=== PATIENT | female | born 1965 | race Caucasian/White ===

== ENCOUNTER 2019-11-10 04:36 | Emergency (ER) | payer OTHER, SELFPAY ==
[2019-11-10 04:45] VITALS: BP 140/76; PULSE 81; RESP 18; TEMP 36.8; O2SAT 97
[2019-11-10 05:13] LABS: Add Urine Microscopic? YES; Appearance Urine Clear (Clear); Bacteria Urine Trace /hpf; Bilirubin Urine Negative (Negative); Blood Urine 1+ (Negative); Color Urine Yellow (Yellow); Glucose Urine UA Negative (Negative); Ketones Urine Negative (Negative); Leukocyte Esterase Ur 3+ LEU/UL (Negative); Mucus Urine Rare /lpf; Nitrate Urine Negative (Negative); Protein Urine Negative (Negative); Specific Grav Ur 1.011 (1.001-1.035); Squamous Epithelial Cell Urine Rare /hpf (Few); Urobilinogen Urine Negative mg/dL (<2.0); WBC Urine 31-50 /hpf
--- NOTE | 2019-11-10 05:42 | ED.FEMALEGU ---
HPI - Female Genitourinary General Chief complaint: Urogenital-Female Stated complaint: WORSENING UTI Time Seen by Provider: 11/10/19 05:42 Source: patient History of Present Illness MD elicited complaint: dysuria and UTI Location of symptoms: suprapubic Severity: mild Female Urogenital Radiation: Non-Radiating Severity scale (1-10): 5 Quality of pain: cramping Consistency: constant Vaginal discharge: none Vaginal bleeding: none Urinary symptoms: Dysuria and Frequency Exacerbating factors: none Relieving factors: none Associated symptoms: denies other symptoms Patient : No Related Data Home Medications Medication Instructions Recorded Confirmed amoxicillin-pot clavulanate 1 tablet PO Q12H 11/10/19 cholecalciferol (vitamin D3) 50,000 unit PO WEEKLY 11/10/19 [Vitamin D3] spironolactone 25 mg PO DAILY 11/10/19 Allergies Allergy/AdvReac Type Severity Reaction Status Date / Time ciprofloxacin AdvReac Unknown Itching Verified 11/10/19 04:38 Review of Systems Review of Systems: All systems reviewed & are unremarkable except as noted in HPI and below Constitutional: Constitutional: Denies body ache(s), Denies chills, Denies excessive sweating, Denies fatigue, Denies fever(s), Denies headache(s), Denies lethargy, Denies malaise, Denies weakness and Denies weight loss Eyes: Eyes: Denies blurry vision, Denies change in vision and Denies loss of vision ENT: Denies dizziness, Denies ear discharge, Denies headache(s), Denies lip swelling, Denies epistaxis, Denies nasal congestion, Denies neck pain, Denies throat swelling and Denies tongue swelling Cardiovascular: Cardiovascular: Denies chest pain, Denies chest pain at rest, Denies chest pain with activity, Denies diaphoresis, Denies rapid heart rate, Denies edema, Denies irregular heart rhythm, Denies lightheadedness, Denies palpitations, Denies dyspnea and Denies dyspnea on exertion Respiratory: Respiratory: Denies chest congestion, Denies cough, Denies hemoptysis, Denies dyspnea and Denies dyspnea on exertion Gastrointestinal: Gastrointestinal: Denies abdominal pain, Denies melena, Denies hematochezia, Denies diarrhea, Denies nausea, Denies vomiting and Denies hematemesis Musculoskeletal: Musculoskeletal: Denies abnormal gait, Denies deformity, Denies joint swelling, Denies limited range of motion, Denies neck pain and Denies numbness Neurologic: Denies Abnormal speech present, Denies abnormal gait, Denies confusion, Denies dizziness, Denies headache(s), Denies focal weakness, Denies loss of vision, Denies numbness, Denies Other visual disturbances, Denies Sensory deficit (Neuro) and Denies weakness Psychiatric: Psychiatric: Denies confusion, Denies depression, Denies auditory hallucinations, Denies homicidal ideation and Denies suicidal ideation Endocrine: Endocrine: Denies cold intolerance, Denies excessive sweating, Denies fatigue, Denies heat intolerance and Denies palpitations Hematologic/Lymphatic: Hematologic/Lymphatic: Denies easy bleeding and Denies easy bruising Allergic/Immunologic: Allergic/Immunologic: Denies lip swelling, Denies throat swelling and Denies tongue swelling [facility] Family History Family History (Updated 08/09/10 @ 02:06 by DOCTOR UNKNOWN) Father Acute myocardial infarction Other Family history of cardiovascular disease Hypertension Social History Social History Smoking status: Never smoker Alcohol intake: never Gender identity (if verbalized by the patient): Female Exam Const: General: cooperative, healthy appearing, comfortable, no acute distress, well developed, alert and awake; No confusion Orientation/consciousness: oriented to person, oriented to place, oriented to time, patient oriented x3 and No confusion Limitations: no limitations HENMT: Head: normal to inspection, normocephalic and atraumatic Ears: hearing grossly normal bilaterally, TM normal on the right and TM normal on the left General nose
[2019-11-10 05:56] VITALS: BP 136/84; PULSE 84; RESP 18; O2SAT 99
== END 2019-11-10 05:58 | disposition home or self-care (01) ==
PROVIDERS: Emergency Provider Emergency Medicine; PCP Family Medicine
DX: N39.0 Urinary tract infection, site not specified (principal)
CPT/HCPCS: 81001; 81025; 87086; 87088; 99283

== ENCOUNTER 2019-11-16 17:04 | Outpatient (CLI) | payer OTHER, SELFPAY ==
--- NOTE | ~2019-11-16 | XR_ITS ---
EXAMINATION: XR abdomen/kub 1V DATE: 11/16/2019 17:22 INDICATION: Nephrocalcinosis TECHNIQUE: A supine view of the abdomen on 2 radiographs was obtained. COMPARISON: 11/30/2018 FINDINGS: No significant interval change in number or distribution of numerous stones throughout both kidneys, the largest measuring 1.8 cm at the lower pole of the left kidney, 1.4 cm at the lower pole of the ri ght kidney and 1.7 cm at the mid right kidney. No stones seen along the course of the ureters. Unchan ged 3 mm phlebolith in the left hemipelvis. Normal bowel gas pattern. Mild lumbar levocurvature. IMPRESSION: 1. Stable appearance of numerous bilateral renal stones. Reviewed, dictated and finalized at location A. LATORY SUBMISSIONS SPECIALIST
== END 2019-11-16 17:05 | disposition home or self-care (01) ==
LOC: ANHIMG 17:07
PROVIDERS: PCP Family Medicine; Visit Provider Urology
DX: E83.59 Other disorders of calcium metabolism (principal); N20.0 Calculus of kidney
CPT/HCPCS: 74018

== ENCOUNTER 2020-07-23 18:00 | Outpatient (CLI) | payer OTHER, SELFPAY ==
--- NOTE | ~2020-07-23 | XR_ITS ---
EXAMINATION: XR abdomen/kub 1V DATE: 07/23/2020 18:26 INDICATION: Calculus of kidney. TECHNIQUE: A supine view of the abdomen on 2 radiographs was obtained. COMPARISON: Abdomen radiographs 11/16/2019 FINDINGS: There are greater than 20 stones in right kidney measuring up to 12 mm. There are greater t montemayor 10 stones in left kidney measuring up to 18 mm. There is a phlebolith in left pelvis. There are n o dilated loops of bowel. IMPRESSION: 1. Bilateral kidney stones. Reviewed, dictated and finalized at location A. MACHINE CARVER IMPRESSION: 1. Bilateral kidney stones.
== END 2020-07-23 18:01 | disposition home or self-care (01) ==
PROVIDERS: PCP Family Medicine; Visit Provider Internal Medicine Nephrology
DX: N20.0 Calculus of kidney (principal)
CPT/HCPCS: 74018

== ENCOUNTER 2020-11-12 22:59 | Emergency (ER) | payer OTHER, SELFPAY ==
--- NOTE | ~2020-11-12 | XR_ITS ---
EXAMINATION: XR abdomen/kub 1V DATE: 11/12/2020 23:55 INDICATION: Left flank pain. TECHNIQUE: A supine view of the abdomen on 2 radiographs was obtained. COMPARISON: CT abdomen and pelvis 11/12/2020 FINDINGS: There are no dilated loops of bowel. There are greater than 10 stones in each kidney. There is bilateral medullary nephrocalcinosis. There is a 4 mm stone in distal left ureter. There is a phl ebolith in left pelvis. IMPRESSION: 1. 4 mm stone in distal left ureter. 2. Bilateral kidney stones. Bilateral medullary nephrocalcinosis. Reviewed, dictated and finalized at location A. IMEN PROCESSOR
--- NOTE | ~2020-11-12 | CT_ITS ---
EXAMINATION: CT abdomen pelvis wo con DATE: 11/12/2020 23:50 INDICATION: Left flank pain. TECHNIQUE: Computed tomography (CT) of the abdomen and pelvis was performed without intravenous contr ast. Automated exposure control and iterative reconstruction technique were employed. The dose-length product was 933.13 mGy-cm. COMPARISON: CT abdomen and pelvis 03/16/2018 FINDINGS: The visualized portions of the lung bases demonstrate minimal atelectasis in right lower lo be. No pleural effusion. The heart size is normal. No pericardial effusion. There are bilateral breas t implants. The liver, gallbladder, spleen, pancreas, and adrenal glands are normal. There is bilater al medullary nephrocalcinosis. There are greater than 10 stones in each kidney measuring up to 10 mm on the right and 14 mm on the left. There is moderate left hydronephrosis and hydroureter. There is a 4 mm stone in distal left ureter. There are no dilated loops of bowel. There is an umbilical hernia containing fat. There are no pathologically enlarged lymph nodes. There is no free intraperitoneal fl uid. There is mild thoracolumbar spondylosis. IMPRESSION: 1. 4 mm stone in distal left ureter with moderate left hydronephrosis and hydroureter. 2. Bilateral nonobstructing kidney stones. Bilateral medullary nephrocalcinosis. Reviewed, dictated and finalized at location A. ER OPERATOR IMPRESSION: 1. 4 mm stone in distal left ureter with moderate left hydronephrosis and hydro ureter. 2. Bilateral nonobstructing kidney stones. Bilateral medullary nephrocalcinosis .
[2020-11-12 23:06] VITALS: BP 163/79; PULSE 88; RESP 16; TEMP 36.6; O2SAT 97
--- NOTE | 2020-11-12 23:40 | ED.ABDPAIN ---
HPI - Abdominal Pain General Chief Complaint: Abdominal Pain Stated Complaint: kidney stone/ chills Time Seen by Provider: 11/12/20 23:33 Source: patient Mode of arrival: ambulatory Limitations: no limitations and language barrier History of Present Illness HPI narrative: This is a 55 year old female with history of chronic kidney disease and kidney stones who presents for evaluation of left flank pain. She developed left flank pain at 3 am this morning. She states she just doesn't feel right and she has had a history of sepsis. She started taking left over antibiotics today. She denies nausea, vomiting, fever, chills, abdominal pain, dysuria or hematuria. This pain has been constant but it has decreased currently. She states it seems to have migrated more to her left side. She has an appointment with Dr. Ross on Thursday but she wanted to get checked tonight. Related Data Home Medications Medication Instructions Recorded Confirmed amoxicillin-pot clavulanate 1 tablet PO Q12H 11/10/19 cholecalciferol (vitamin D3) 50,000 unit PO WEEKLY 11/10/19 [Vitamin D3] spironolactone 25 mg PO DAILY 11/10/19 Allergies Allergy/AdvReac Type Severity Reaction Status Date / Time ciprofloxacin AdvReac Unknown Itching Verified 11/10/19 04:38 Review of Systems Review of Systems: All systems reviewed & are unremarkable except as noted in HPI and below PMFSH Past Medical History Medical History (Updated 11/13/20 @ 01:57 by Jennie Gillespie MD) Chronic kidney disease Kidney stones Renal tubular acidosis Surgical History Surgical History (Updated 11/12/20 @ 23:44 by Jennie Gillespie MD) S/P ureteral stent placement Family History Family History (Updated 08/09/10 @ 02:06 by DOCTOR UNKNOWN) Father Acute myocardial infarction Other Family history of cardiovascular disease Hypertension Social History Social History Smoking status: Never smoker Alcohol intake: never Gender identity (if verbalized by the patient): Female Exam Const: General: no acute distress and alert Orientation/consciousness: patient oriented x3 Eyes: EOM: EOMs intact bilaterally Resp: Effort & Inspection: normal respiratory effort and no retractions Auscultation: clear to auscultation bilaterally Cardio: Rate: regular rate Rhythm: regular rhythm Heart sounds: no murmurs GI: GI Palp: Yes Soft to palpation, No Tenderness to palpation present (GI) and No Guarding due to palpation present (GI) Auscultation: normal bowel sounds Back/Spine/Pelvis: Back: no CVA tenderness Skin: General skin exam: normal color Rashes: no rashes Neuro: General: patient oriented x3, moves all extremities and CN's II-XI intact bilaterally Psych: Mental Status: mental status grossly normal Affect: normal affect Course Consultations Consultation #1: I Discussed with Dr. Bose patient has wbc 13 with UTI but no fever. PAin is controlled. Patient is comfortable with discharge home. HE agrees with antibiotics and outpatient management. Date: 11/13/20 Time: 00:32 Vital Signs Vital signs: Vital Signs Temperature 97.9 F 11/12/20 23:06 Pulse Rate 88 11/12/20 23:06 Respiratory Rate 16 11/12/20 23:06 Blood Pressure 163/79 H 11/12/20 23:06 Pulse Oximetry 97 11/12/20 23:06 Temperature 97.9 F 11/12/20 23:06 Pulse Rate 88 11/12/20 23:06 Respiratory Rate 16 11/12/20 23:06 Blood Pressure 163/79 H 11/12/20 23:06 Pulse Oximetry 97 11/12/20 23:06 MDM - Abdominal Pain Lab Data Attestation: I reviewed the patient's lab results. Result diagrams: 11/12/20 23:46 11/12/20 23:46 Labs: Lab Results 11/12/20 11/12/20 11/12/20 Range/Units 23:46 23:46 23:46 WBC 13.7 H (4.5-10.0) K/mm3 RBC 5.43 H (4.2-5.4) M/mm3 Hgb 15.2 H (12.0-15.0) g/dL Hct 46.9 (37.0-47.0) % MCV 86.4 (80-100) fl MCH 28.0 (26-34) pg MCHC 32.4 (32-36) g/dl
[2020-11-12 23:58] LABS: Basophils Absolute Auto 0.1 K/mm3 (0.0-0.1); Basophils Percent Auto 0.4 % (0.2-1.2); Eosinophils Absolute Auto 0.2 K/mm3 (0-0.3); Eosinophils Percent Auto 1.5 % (0-4.4); Hematocrit 46.9 % (37.0-47.0); Hemoglobin 15.2 g/dL (12.0-15.0); Immature Granulocyte Absolute 0.06 K/mm3 (0.00-0.031); Immature Granulocyte Percent A 0.4 % (0-0.5); Lymphocytes Absolute Auto 2.89 K/mm3 (0.9-3.2); Lymphocytes Percent Auto 21.1 % (18.3-44.2); Mean Corpuscular HGB Conc 32.4 g/dl (32-36); Mean Corpuscular Volume 86.4 fl (80-100); Mean Platelet Volume 9.8 fl (7.4-10.4); Monocytes Absolute Auto 1.3 K/mm3 (0.1-0.6); Monocytes Percent Auto 9.3 % (2.6-8.5); Neutrophils Absolute Auto 9.2 K/mm3 (1.3-6.7); Neutrophils Percent Auto 67.3 % (45.5-73.1); Platelet Count Result 348 k/mm3 (150-375); Red Blood Count 5.43 M/mm3 (4.2-5.4); Red Cell Distribution Width 13.4 % (11.5-14.5); White Blood Count 13.7 K/mm3 (4.5-10.0)
[2020-11-13 00:03] LABS: Add Urine Microscopic? YES; Appearance Urine Clear (Clear); Bilirubin Urine Negative (Negative); Blood Urine 1+ (Negative); Color Urine Colorless (Yellow); Glucose Urine UA Negative (Negative); Ketones Urine Negative (Negative); Leukocyte Esterase Ur 3+ LEU/UL (Negative); Nitrate Urine Negative (Negative); Protein Urine Negative (Negative); RBC Urine 0-2 /hpf (0-2); Squamous Epithelial Cell Urine Rare /hpf (Few); Urobilinogen Urine Negative mg/dL (<2.0); WBC Urine 21-30 /hpf
[2020-11-13 00:04] LABS: Specific Grav Ur 1.004 (1.001-1.035)
[2020-11-13 00:09] LABS: Alanine Aminotransferase 20 U/L (4-35); Albumin Level 4.7 g/dL (3.5-5.1); Alkaline Phosphatase 80 U/L (38-126); Anion Gap 11 mmol/L (8-16); Aspartate Amino Transferase 25 U/L (14-36); Bilirubin,Total 0.6 mg/dL (0.2-1.3); Blood Urea Nitrogen 16 mg/dL (7-17); Calcium 9.9 mg/dL (8.4-10.2); Carbon Dioxide 19 mmol/L (22-30); Chloride 110 mmol/L (98-107); Estimated CRCL calculation 46 ml/min; Estimated Glomerular Filt Rate 39; Glucose 110 mg/dL (65-105); Potassium 3.6 mmol/L (3.4-5.0); Sodium 140 mmol/L (137-145)
[2020-11-13] MEDS: SODIUM CHLORIDE 0.9% IV 1,000 ML 999 ML IV CONT (01:17)
[2020-11-13] MEDS: TAMSULOSIN HCL 0.4 MG CAPSULE PO (01:17)
[2020-11-13 02:30] VITALS: BP 135/78; PULSE 64; RESP 18; O2SAT 97
== END 2020-11-13 02:52 | disposition home or self-care (01) ==
PROVIDERS: Emergency Provider General Practice; PCP Family Medicine
DX: N13.2 Hydronephrosis with renal and ureteral calculous obstruction (principal); N18.9 Chronic kidney disease, unspecified; Z87.442 Personal history of urinary calculi; E83.59 Other disorders of calcium metabolism; N29 Other disorders of kidney and ureter in diseases classified elsewhere
CPT/HCPCS: 36415; 74018; 74176; 80053; 81001; 81025; 85025; 87086; 87088; 96365; 99284; A9270; J0696; J7030

== ENCOUNTER 2020-11-13 15:49 | Outpatient (CLI) | payer OTHER, SELFPAY ==
--- NOTE | ~2020-11-13 | XR_ITS ---
XR abdomen/kub 1V DATE: 11/13/2020 16:14 INDICATION: Nephrocalcinosis. Left-sided flank pain. TECHNIQUE: AP projection, 2 views COMPARISON: 11/12/2020 KUB 11/12/[address] abdomen pelvis FINDINGS: Extensive bilateral nephrolithiasis and medullary nephrocalcinosis, right greater than left . No significant change in position of calcified calculus overlying the left ureter is slightly below t he level of the left sacroiliac joint, corresponding to a calculus at this level documented on the CT abdomen pelvis examination. The psoas shadows are intact. The bowel gas pattern is unremarkable, without evidence of obstruction. IMPRESSION: Persistent distal left ureteral calcified calculus Extensive bilateral nephrolithiasis and medullary nephrocalcinosis Reviewed, dictated and finalized at Location A. Reviewed, dictated and finalized at location A. P SHED SUPERVISOR
== END 2020-11-13 15:50 | disposition home or self-care (01) ==
LOC: ANHIMG 15:51
PROVIDERS: PCP Family Medicine; Visit Provider Urology
DX: E83.59 Other disorders of calcium metabolism (principal)
CPT/HCPCS: 74018

== ENCOUNTER 2020-11-22 18:25 | Outpatient (CLI) | payer OTHER, SELFPAY ==
--- NOTE | ~2020-11-22 | XR_ITS ---
EXAMINATION: XR abdomen/kub 1V INDICATION: Nephrocalcinosis TECHNIQUE: Supine views of the abdomen were obtained on 2 radiographs. COMPARISON: 11/13/2020 FINDINGS: There is bilateral medullary nephrocalcinosis. The previously described 4 mm stone in the l eft distal ureter is unchanged. There is a new 4 mm adjacent stone projecting immediately adjacent to the prior stone in the distal left ureter. Again noted are greater than 10 stones in each kidney. Th e bowel gas pattern is normal. IMPRESSION: 1. Two adjacent 4 mm stones in the left distal ureter. 2. Bilateral nephrolithiasis and medullary nephrocalcinosis. Reviewed, dictated and finalized at location A. PLES MACHINE OPERATOR
== END 2020-11-22 18:26 | disposition home or self-care (01) ==
PROVIDERS: PCP Family Medicine; Visit Provider Urology
DX: N20.2 Calculus of kidney with calculus of ureter (principal)
CPT/HCPCS: 74018

== ENCOUNTER 2020-11-29 18:18 | Outpatient (CLI) | payer OTHER, SELFPAY ==
--- NOTE | ~2020-11-29 | XR_ITS ---
XR abdomen/kub 1V 11/29/2020 18:38 Indication: Left ureteral stone. Renal stones. Procedure: KUB Comparison: Comparison to multiple prior studies sequentially, with oldest reviewed study dated 11/13. Findings: There is a distal left ureteral stone inferior to the sacroiliac joint, measuring 6 mm maxi mum dimension. There are multiple small and large bilateral renal stones. Bowel gas pattern is nonobs tructive. No acute osseous abnormality. Impression: 1: Distal left ureteral stone measuring 6 mm. 2: Bilateral nephrolithiasis. Reviewed, dictated and finalized at location A. ER SERVICEMAN Impression: 1: Distal left ureteral stone measuring 6 mm. 2: Bilateral nephrolithiasis.
== END 2020-11-29 18:19 | disposition home or self-care (01) ==
PROVIDERS: PCP Family Medicine; Visit Provider Urology
DX: N20.2 Calculus of kidney with calculus of ureter (principal)
CPT/HCPCS: 74018

== ENCOUNTER 2022-02-24 07:34 | Emergency (ER) | payer OTHER, SELFPAY ==
[2022-02-24 07:44] VITALS: BP 174/88; PULSE 91; RESP 17; TEMP 36.9; O2SAT 98
--- NOTE | 2022-02-24 07:52 | ED.GENADULT ---
HPI - General Adult General Chief complaint: Unspecified Stated complaint: thyroid problems Time Seen by Provider: 02/24/22 07:36 History of Present Illness HPI narrative: 56-year-old female history of hypothyroidism presented to the emergency department for evaluation of worsening intermittent fatigue with associated headache. Patient states she has been on levothyroxine for approximately 30 years. Patient states that she associates the weakness and fatigue with taking her levothyroxine. She states after she takes the levothyroxine she has a worsening of her symptoms. Patient has had her dose decreased and is scheduled to follow-up with endocrinology but the appointment is not for another 3 months. Patient states that she did have follow-up with her primary care physician on 01/30. Patient states she did abstain from taking her medication Thursday and did feel improved after 24 hours. Patient took her medication again on Thursday and did feel worsened after taking the med Patient denies any fevers. Patient denies any associated nausea vomiting diarrhea or abdominal pain. Related Data Home Medications Medication Instructions Recorded Confirmed cholecalciferol (vitamin D3) 100 50,000 unit PO WEEKLY 11/10/19 01/30/22 mcg (4,000 unit) capsule (Vitamin D3) spironolactone 25 mg tablet 25 mg PO DAILY 11/10/19 01/30/22 allopurinol 100 mg tablet 100 mg PO DAILY 01/30/22 01/30/22 levothyroxine 125 mcg tablet tablet 02/24/22 Allergies Allergy/AdvReac Type Severity Reaction Status Date / Time ciprofloxacin AdvReac Unknown Itching Verified 02/24/22 07:51 Review of Systems Review of Systems: CONSTITUTIONAL: Generalized fatigue EYES: Denies visual changes, redness, or discharge. ENT: Denies rhinorrhea, congestion, sore throat, or otalgia. CARDIOVASCULAR: Denies chest pain, palpitations, or edema. RESPIRATORY: Denies cough or dyspnea. GASTROINTESTINAL: Denies abdominal pain, nausea, vomiting, or diarrhea. GENITOURINARY: Denies dysuria or hematuria. SKIN: Denies rash or itching. MUSCULOSKELETAL: Denies back pain, joint pain, or myalgia. NEUROLOGIC: Denies headache, numbness, or weakness. [facility] Past Medical History Medical History BMI 37.0-37.9, adult BMI greater than 40 Chronic kidney disease Kidney stones Renal tubular acidosis Surgical History Surgical History S/P ureteral stent placement Family History Family History Father Acute myocardial infarction Mother Cerebrovascular accident Sibling Thyroid activity decreased Other Family history of cardiovascular disease Hypertension Social History Social History Smoking status: Never smoker Second hand tobacco smoke exposure: Yes Alcohol intake: never Substance use: never Substance use type: does not use Additional occupation/education comments: [employer] Gender identity (if verbalized by the patient): Female Exam Narrative: APPEARANCE: Well appearing, no pain, no distress, well-nourished. HEAD: normocephalic, atraumatic. EYES: PERRLA/EOMI, conjunctivae clear. THROAT: Pharynx clear, no exudate. NECK: Supple. No adenopathy, no masses. RESPIRATORY: Airway patent, respirations nonlabored. Clear to auscultation bilaterally, no rales, rhonchi, wheezing. CARDIOVASCULAR: Regular rate and rhythm without murmurs rubs or gallops. ABDOMINAL: Soft, nontender, nondistended, normal bowel sounds MUSCULOSKELETAL: Moves all extremities. Strength/ROM intact, No edema, No calf tenderness. NEURO: Alert. Cranial nerves II through XII intact. Grossly intact SKIN: Warm, dry. Normal Color Course Course Emergency Course: Patient was updated the results of her labs. No significant electrolyte abnormalities.
[2022-02-24 08:05] LABS: Basophils Absolute Auto 0.1 K/mm3 (0.0-0.1); Basophils Percent Auto 0.5 % (0.2-1.2); Eosinophils Absolute Auto 0.3 K/mm3 (0-0.3); Eosinophils Percent Auto 2.2 % (0-4.4); Hematocrit 49.1 % (37.0-47.0); Hemoglobin 15.5 g/dL (12.0-15.0); Immature Granulocyte Absolute 0.05 K/mm3 (0.00-0.031); Immature Granulocyte Percent A 0.4 % (0-0.5); Lymphocytes Absolute Auto 2.49 K/mm3 (0.9-3.2); Lymphocytes Percent Auto 21.5 % (18.3-44.2); Mean Corpuscular HGB Conc 31.6 g/dl (32-36); Mean Corpuscular Hemoglobin 27.9 pg (26-34); Mean Corpuscular Volume 88.5 fl (80-100); Mean Platelet Volume 9.6 fl (7.4-10.4); Monocytes Absolute Auto 0.9 K/mm3 (0.1-0.6); Monocytes Percent Auto 8.1 % (2.6-8.5); Neutrophils Absolute Auto 7.8 K/mm3 (1.3-6.7); Neutrophils Percent Auto 67.3 % (45.5-73.1); Platelet Count Result 348 k/mm3 (150-375); Red Blood Count 5.55 M/mm3 (4.2-5.4); Red Cell Distribution Width 13.5 % (11.5-14.5); White Blood Count 11.6 K/mm3 (4.5-10.0)
[2022-02-24 08:16] LABS: Alanine Aminotransferase 30 U/L (6-35); Alkaline Phosphatase 72 U/L (38-126); Anion Gap 14 mmol/L (8-16); Aspartate Amino Transferase 30 U/L (14-36); Bilirubin,Total 0.7 mg/dL (0.2-1.3); Blood Urea Nitrogen 19 mg/dL (7-17); Calcium 9.8 mg/dL (8.4-10.2); Carbon Dioxide 20 mmol/L (22-30); Chloride 106 mmol/L (98-107); Estimated CRCL calculation 50 ml/min; Estimated Glomerular Filt Rate 39; Glucose 124 mg/dL (65-110); Sodium 140 mmol/L (137-145)
[2022-02-24] MEDS: SODIUM CHLORIDE 0.9% IV 1,000 ML 999 ML IV CONT (08:21)
[2022-02-24 08:23] VITALS: PULSE 65
[2022-02-24 09:02] LABS: Thyroid Stimulating Hormone Reflex 0.259 uIU/mL (0.465-4.68)
[2022-02-24 09:49] VITALS: BP 149/73; PULSE 58; RESP 16
[2022-02-24 09:50] LABS: Free T4 Free Thyroxine Reflex 1.22 ng/dL (0.78-2.19)
[2022-02-24 10:34] LABS: Total Triiodothyronine (T3) 1.89 NG/ML (0.97-1.69)
--- NOTE | 2022-03-20 11:22 | PC.NURSE ---
LATE ENTRY This note is being entered to document information to the patient's record. The following information was omitted on [02/24/2022], by [Flora Wong RN]. NS stop time is 914.
== END 2022-02-24 09:49 | disposition home or self-care (01) ==
PROVIDERS: Emergency Provider Emergency Medicine; PCP Family Medicine
DX: R53.83 Other fatigue (principal); T38.1X5A Adverse effect of thyroid hormones and substitutes, initial encounter; E03.9 Hypothyroidism, unspecified; N18.9 Chronic kidney disease, unspecified; Z87.442 Personal history of urinary calculi
CPT/HCPCS: 36415; 80053; 83735; 84439; 84443; 84480; 85025; 96360; 99283; J7030

== ENCOUNTER 2022-04-25 17:27 | Observation (INO) | payer OTHER, SELFPAY ==
[2022-04-25 17:51] VITALS: BP 144/77; PULSE 70; RESP 16; TEMP 36.5; O2SAT 97
--- NOTE | 2022-04-25 18:48 | ED.GENADULT ---
HPI - General Adult General Chief complaint: Unspecified Stated complaint: thyroid issues Time Seen by Provider: 04/25/22 18:48 History of Present Illness HPI narrative: 56-year-old female presents the emergency room complaining of thyroid issues . Patient states that she has been on Synthroid for approximately 30 years, when back in February she was seen in the emergency room for not feeling well, general malaise and fatigue. Patient was found to have a TSH level of 50 at that time. She went back to her primary care physician and they took her off of Synthroid and placed her on [place] [facility]. Patient presents today complaining of increased fatigue and generalized malaise. Patient denies chest pain shortness of breath or breathing. Related Data Home Medications Medication Instructions Recorded Confirmed spironolactone 25 mg tablet 25 mg PO DAILY 11/10/19 04/11/22 allopurinol 100 mg tablet 100 mg PO DAILY 01/30/22 04/11/22 Allergies Allergy/AdvReac Type Severity Reaction Status Date / Time No Known Allergies Allergy Verified 04/25/22 17:55 Review of Systems Review of Systems: CONSTITUTIONAL: Denies fever, chills, or sweats. EYES: Denies visual changes, redness, or discharge. ENT: Denies rhinorrhea, congestion, sore throat, or otalgia. CARDIOVASCULAR: Denies chest pain, palpitations, or edema. RESPIRATORY: Denies cough or dyspnea. GASTROINTESTINAL: Denies abdominal pain, nausea, vomiting, or diarrhea. GENITOURINARY: Denies dysuria or hematuria. SKIN: Denies rash or itching. MUSCULOSKELETAL: Denies back pain, joint pain, or myalgia. NEUROLOGIC: Reports generalized weakness PSYCHIATRIC: Denies anxiety or depression. [facility] Past Medical History Medical History BMI 37.0-37.9, adult BMI greater than 40 Chronic kidney disease Edema Kidney stones Renal tubular acidosis Surgical History Surgical History S/P ureteral stent placement Family History Family History Father Acute myocardial infarction Tobacco abuse Mother Cerebrovascular accident Sibling Thyroid activity decreased Other Family history of cardiovascular disease Hypertension Social History Social History 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 HEAD: Normocephalic, atraumatic. EYES: Conjunctivae normal, PERRLA and EOMI. NECK: Supple. No meningeal signs. No adenopathy or masses. No carotid bruits or JVD CHEST: Clear to auscultation. No respiratory distress. No wheezes rales or rhonchi. No tenderness. HEART: Regular rate and rhythm. No murmur heard. Normal peripheral pulses. ABDOMEN: Soft, nontender, nondistended, normal active bowel sounds. BACK: No CVA tenderness; No cervical/thoracic/lumbar tenderness, step-offs, bony abnormality; FROM EXTREMITIES: Normal range of motion. No edema. No clubbing or cyanosis SKIN: Warm, dry, no rash. No noted wounds NEURO: No focal deficits. Alert and oriented x3. MAEW. CN's II-XI intact bilaterally, normal gait PSYCH: Cooperative. Normal mood and affect. Course Vital Signs Vital signs: Vital Signs Temperature 36.5 C 04/25/22 17:51 Pulse Rate 70 04/25/22 17:51 Respiratory Rate 16 04/25/22 17:51 Blood Pressure 144/77 H 04/25/22 17:51 Pulse Oximetry 97 04/25/22 17:51 Temperature 36.5 C 04/25/22 17:51 Pulse Rate 78 04/25/22 21:10 Respiratory Rate 20 04/25/22 21:10 Blood Pressure 176/9
[2022-04-25] MEDS: SODIUM CHLORIDE 0.9% IV 1,000 ML 999 ML (19:21)
[2022-04-25 19:25] VITALS: BP 138/71; PULSE 64; RESP 18; O2SAT 99
[2022-04-25 19:31] LABS: Basophils Absolute Auto 0.1 K/mm3 (0.0-0.1); Basophils Percent Auto 0.6 % (0.2-1.2); Eosinophils Absolute Auto 0.3 K/mm3 (0-0.3); Eosinophils Percent Auto 2.1 % (0-4.4); Hematocrit 47.1 % (37.0-47.0); Immature Granulocyte Absolute 0.07 K/mm3 (0.00-0.031); Immature Granulocyte Percent A 0.5 % (0-0.5); Lymphocytes Absolute Auto 2.36 K/mm3 (0.9-3.2); Lymphocytes Percent Auto 17.7 % (18.3-44.2); Mean Corpuscular HGB Conc 31.8 g/dl (32-36); Mean Corpuscular Hemoglobin 28.5 pg (26-34); Mean Corpuscular Volume 89.4 fl (80-100); Mean Platelet Volume 9.8 fl (7.4-10.4); Monocytes Absolute Auto 1.1 K/mm3 (0.1-0.6); Monocytes Percent Auto 8.1 % (2.6-8.5); Neutrophils Absolute Auto 9.5 K/mm3 (1.3-6.7); Platelet Count Result 339 k/mm3 (150-375); Red Blood Count 5.27 M/mm3 (4.2-5.4); Red Cell Distribution Width 15.3 % (11.5-14.5); White Blood Count 13.4 K/mm3 (4.5-10.0)
[2022-04-25 19:41] LABS: Alanine Aminotransferase 33 U/L (6-35); Alkaline Phosphatase 70 U/L (38-126); Anion Gap 12 mmol/L (8-16); Aspartate Amino Transferase 57 U/L (14-36); Bilirubin,Total 0.7 mg/dL (0.2-1.3); Blood Urea Nitrogen 16 mg/dL (7-17); Calcium 9.4 mg/dL (8.4-10.2); Carbon Dioxide 22 mmol/L (22-30); Chloride 103 mmol/L (98-107); Estimated CRCL calculation 43 ml/min; Estimated Glomerular Filt Rate 33; Glucose 112 mg/dL (65-110); Potassium 3.7 mmol/L (3.4-5.0); Sodium 137 mmol/L (137-145)
[2022-04-25 20:49] LABS: Thyroid Stimulating Hormone > 100.000 uIU/mL (0.465-4.680)
--- NOTE | 2022-04-25 21:05 | ECG_ITS ---
Measurements Intervals [place] Rate: 75 P: 59 ME: 196 QRS: 106 QRSD: 64 T: 112 QT: 343 QTc: 384 Interpretive Statements SINUS RHYTHM MARKED RIGHT AXIS DEVIATION [QRS AXIS > 100] LOW QRS VOLTAGE IN PRECORDIAL LEADS [QRS DEFLECTION < 1.0 mV IN CHEST LEADS] NONSPECIFIC ST SEGMENT ABNORMALITY NO PREVIOUS ECG AVAILABLE FOR COMPARISON Electronically Signed On 04-26-2022 7:19:42 CDT by Onel Cee M.D.
[2022-04-25 21:10] VITALS: BP 176/95; PULSE 78; RESP 20; O2SAT 99
[2022-04-25 21:25] LABS: Appearance Urine Clear (Clear); Bilirubin Urine Negative (Negative); Blood Urine 1+ (Negative); Glucose Urine UA Negative (Negative); Ketones Urine Negative (Negative); Leukocyte Esterase Ur 3+ LEU/UL (Negative); Nitrate Urine Negative (Negative); Protein Urine Negative (Negative); Urobilinogen Urine 0.2 mg/dL (<2.0)
[2022-04-25 21:31] LABS: Bacteria Urine Trace /hpf; RBC Urine 0-2 /hpf (0-2); Squamous Epithelial Cell Urine Rare /hpf (Few); WBC Urine 21-30 /hpf
[2022-04-25 21:35] LABS: Add Urine Microscopic? YES; Color Urine Light Yellow (Yellow)
[2022-04-25 21:43] LABS: SARS-CoV-2 RNA PCR Negative
[2022-04-25 22:07] VITALS: BP 134/70; PULSE 70; RESP 18; O2SAT 99
[2022-04-25 22:35] VITALS: BP 143/78; PULSE 71; RESP 14; TEMP 36.1; O2SAT 96
[2022-04-25 22:36] VITALS: BMI 38.5
[2022-04-25 22:43] LABS: Free T4 Free Thyroxine 0.17 ng/mL (0.78-2.19)
[2022-04-25 22:45] VITALS: BMI 41.4
[2022-04-25] MEDS: SODIUM CHLORIDE 0.9% IV 1,000 ML 125 ML IV CONT (23:21)
--- NOTE | 2022-04-25 23:30 | PC.NURSE ---
This patient, Danyell Wong, was admitted to [facility] Surg Room 317-02. Patient/family oriented to hospital policies and general routines including ID bracelet, bed and alarms, visiting hours, pain management, procedures, bathroom and other care routines, personal items, smoking policy, room service/diet, and visiting hours. Information on how to activate the Rapid Response Team has been discussed. Patient/Family are encouraged to report perceived risks to care and to ask questions if they do not understand what they are told or what they should do.
[2022-04-26] VITALS (9 sets, daily range): BP systolic 129–146; BP diastolic 54–79; PULSE 51–77; RESP 14–18; TEMP 36–36.6; O2SAT 96–99
--- NOTE | 2022-04-26 06:25 | PM.IMHP ---
H&P: HPI History of Present Illness Date/Time: 04/26/22 06:25 Chief Complaint: Malaise Narrative: Greater than 30 minute spent reviewing chart, evaluating, treating, counseling patient. Anticipate less than 48 hour admission, will admit under observation. 56-year-old female past medical history of obesity, hypothyroidism, anxiety, CKD (appears patient's baseline creatinine around 1.4), RTA. The patient has had issues with her thyroid medication for almost a year now. She has been on levothyroxine 175 mcg for the last 30 years, however late last fall patient had her medication filled at the pharmacy and was given brand name Synthroid instead. Patient had a reaction after taking the brand name, stating ?it did not sit well. She was switched back to a generic levothyroxine, however was noted to be hyperthyroid and dose was decreased to 137 mcg and September of 2021. Patient's dosage was subsequently decreased again to 125 mcg due to follow-up labs showing hyperthyroid. From May 2021 up until January 2022 patient was switched multiple times from generic to brand name back and forth. Patient's TSH was 0.03 in January 2022. Patient was evaluated here in the ED February 2022 due to persistent symptoms of fatigue and weakness. TSH was found to be low, and free T4 Was normal with slightly elevated T3. At that time, patient was taken off levothyroxine completely by her family doctor. Between February and now, patient apparently found to be hypothyroid and was started on [place] Thyroid 15 mg. In ED here today, patient's TSH found to be above 100 with a low T4. Patient reporting significant fatigue, however denies swelling of her face (which she has had before with hypothyroid), swelling of the tongue, swelling of her hands and legs, constipation. She does report weight gain. Patient is anxious and weary of restarting levothyroxine. States she has an appointment with endocrinology in May. Review of Systems Review of Systems: Ten point ROS reviewed negative unless otherwise specified per HPI. [facility] Past Medical History Medical History BMI 37.0-37.9, adult BMI greater than 40 Chronic kidney disease Edema Kidney stones Renal tubular acidosis Surgical History Surgical History S/P ureteral stent placement Family History Family History Father Acute myocardial infarction Tobacco abuse Mother Cerebrovascular accident Sibling Thyroid activity decreased Other Family history of cardiovascular disease Hypertension Social History Social History 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[employer] Gender identity (if verbalized by the patient): Female Spiritual care concerns: No Meds Home Medications and Allergies Home Medications Medication Instructions Recorded Confirmed Type spironolactone 25 mg tablet 25 mg PO DAILY 11/10/19 04/26/22 History allopurinol 100 mg tablet 100 mg PO DAILY 01/30/22 04/26/22 History thyroid (pork) 15 mg tablet 15 mg PO DAILY #30 tabs 04/07/22 04/26/22 Rx ([place] Thyroid) cholecalciferol (vitamin D3) 1,250 50,000 unit PO .Twice a month #6 04/11/22 04/26/22 Rx mcg (50,000 unit) capsule caps Allergies Allergy/AdvReac Type Severity Reaction Status Date / Time No Known Allergies Allergy Verified 04/25/22 17:55 Vital Signs Vital Signs - 24 hr 04/25/22 17:51 04/25/22 19:25 04/25/22 21:10 Temperature 97.7 F Pulse Rate 70 64 78 Respiratory Rate 16 18 20 Blood Pressure 144/77 H 138/71 176/95 H Pulse Oximetry 97 99 99 Oxygen Delivery Room Air 04/25/22 22:07
[2022-04-26] MEDS: SODIUM CHLORIDE 0.9% IV 1,000 ML 125 ML IV CONT (08:09)
[2022-04-26 09:01] LABS: Anion Gap 8 mmol/L (8-16); Blood Urea Nitrogen 13 mg/dL (7-17); Calcium 8.5 mg/dL (8.4-10.2); Carbon Dioxide 24 mmol/L (22-30); Chloride 106 mmol/L (98-107); Estimated CRCL calculation 51 ml/min; Estimated Glomerular Filt Rate 39; Glucose 106 mg/dL (65-110); Potassium 4.1 mmol/L (3.4-5.0); Sodium 138 mmol/L (137-145)
[2022-04-26 09:05] LABS: Basophils Absolute Auto 0.1 K/mm3 (0.0-0.1); Basophils Percent Auto 0.6 % (0.2-1.2); Eosinophils Absolute Auto 0.2 K/mm3 (0-0.3); Hematocrit 45.6 % (37.0-47.0); Hemoglobin 14.2 g/dL (12.0-15.0); Immature Granulocyte Absolute 0.06 K/mm3 (0.00-0.031); Immature Granulocyte Percent A 0.6 % (0-0.5); Lymphocytes Absolute Auto 2.16 K/mm3 (0.9-3.2); Lymphocytes Percent Auto 21.1 % (18.3-44.2); Mean Corpuscular HGB Conc 31.1 g/dl (32-36); Mean Corpuscular Hemoglobin 28.3 pg (26-34); Mean Corpuscular Volume 90.8 fl (80-100); Mean Platelet Volume 9.8 fl (7.4-10.4); Monocytes Absolute Auto 0.9 K/mm3 (0.1-0.6); Monocytes Percent Auto 8.9 % (2.6-8.5); Neutrophils Absolute Auto 6.9 K/mm3 (1.3-6.7); Neutrophils Percent Auto 66.8 % (45.5-73.1); Platelet Count Result 311 k/mm3 (150-375); Red Blood Count 5.02 M/mm3 (4.2-5.4); Red Cell Distribution Width 15.4 % (11.5-14.5); White Blood Count 10.3 K/mm3 (4.5-10.0)
--- NOTE | 2022-04-26 10:29 | PM.IMPN ---
Progress Note: A&P Assessment and Plan (1) Hypothyroidism: Code(s): E03.9 - Hypothyroidism, unspecified Status: Acute Assessment and Plan: Pts TSH >100 with low T4 consistent with hypothyroidism - as stated above, patient has had issues with Synthroid but was on levothyroxine for many years before that and did okay -Her calucated dose would be 175 (1.6mcg/kg/day) but since she is fearful and has had issues in the past, she wants to start slow. She started with 88mcg in the past and thought it was too much. I explained we can start at 50mcg but she will likely need much more in the future. Pt is agreeable -Will monitor overnight (obs) and if she tolerates it well she can d/c home tomorrow -Pt has an appointment set with Dr. Olga Lidia Rachel, endocrine later this month. -No signs of myxedema coma (2) Renal tubular acidosis: Code(s): N25.89 - Other disorders resulting from impaired renal tubular function Status: Chronic Assessment and Plan: Continue spironolactone and sodium bicarbonate (3) Pyuria: Code(s): R82.81 - Pyuria Status: Acute Assessment and Plan: Noted on UA--pt has no dysuria or odor but has been feeling very tired lately -continue ceftriaxone and await urine cx (4) Generalized weakness: Code(s): R53.1 - Weakness Status: Acute Assessment and Plan: subjective, likely due to above -pt denies need for PT and OT Time Spent With Patient Time with patient: 25 - 35 minutes Subjective Date/time seen: 04/26/22 10:29 Interval history: Pt is a 56-year-old female here with extreme fatigue noted to be hypothyroid. We had a long discussion about the patient's hypothyroid treatment. She said she did well on levothyroxine and cannot remember why she switched to Synthroid but when she switched to Synthroid she had vomiting and did not tolerate that medication at all. She then went to [facility] but for last 3 weeks it has not been helping. She is okay with starting the levothyroxine at a low dose since it was a brand name Synthroid which she had the most problems with. She denies any history of abnormal breathing, swelling of the face, hives etc with either levothyroxine or Synthroid. She is fearful of going home due to her reactions in the past and would like to be monitored overnight as we introduced levothyroxine into her system again. She has an appointment with Dr. Olga Lidia Rachel in the next couple weeks. she does not have any urinary symptoms, CP, or SOB. Review of Systems Review of Systems: All systems reviewed & are unremarkable except as noted in HPI and below Exam Narrative: General: Well developed well nourished patient in NAD HEENT: normocephalic Neck: supple Neuro: Alert and oriented x 4 CV:RRR. tele without abnormalities Resp:CTA Abd: Soft, non distended. No pain to palpation. Positive bowel sounds Extremities: No swelling, erythema, or pain to palpation. Objective Data Vital Signs Vital Signs: Vital Signs - 24 hr 04/25/22 17:51 04/25/22 19:25 04/25/22 21:10 Temperature 97.7 F Pulse Rate 70 64 78 Respiratory Rate 16 18 20 Blood Pressure 144/77 H 138/71 176/95 H Pulse Oximetry 97 99 99 Oxygen Delivery Room Air 04/25/22 22:07 04/25/22 22:35 04/26/22 00:00 Temperature 96.9 F L Pulse Rate 70 71 59 L Respiratory Rate 18 14 Blood Pressure 134/70 143/78 H Pulse Oximetry 99 96 Oxygen Delivery 04/26/22 04:00 04/26/22 06:00 04/26/22 08:15 Temperature 96.9 F L Pulse Rate 51 L 59 L Respiratory Rate 14 Blood Pressure 132/54 L Pulse Oximetry 98 Oxygen Delivery Room Air 04/26/22 08:53 04/26/22 08:00 Temperature 97.1 F L Pulse Rate 77 Respiratory Rate 18 Blood Pressure 141/74 H Pulse Oximetry 98 99 Oxygen Delivery Room Air Intake/Output Intake/Output: Intake & Output 04/23/22 04/24/22 04/25/22 04/26/22 23:59 23:59 23:59 23:59 Intake Total 100
[2022-04-26] MEDS: LEVOTHYROXINE SODIUM 50 MCG TABLET PO (11:35)
[2022-04-26] MEDS: ACETAMINOPHEN 325 MG TABLET 650 MG PO (16:58)
[2022-04-26] MEDS: allopurinoL 100 MG TABLET PO (16:59)
[2022-04-26] MEDS: SODIUM BICARBONATE TAB 650 MG TABLET PO (20:53)
[2022-04-26] MEDS: SPIRONOLACTONE 25 MG TABLET PO (20:53)
--- NOTE | 2022-04-26 21:50 | PC.NURSE ---
Pt handed me a pill in a cup from [facility] and stated that she did not take her allopurinol. Pill was disposed of in medication stericycle bin. will notify caustic cresylate shift superintendent care provider.
[2022-04-27] VITALS: BP 124/60; PULSE 50; PULSE 70; RESP 18; TEMP 36.5; O2SAT 98
[2022-04-27 04:00] VITALS: BP 117/55; PULSE 46; PULSE 51; RESP 18; TEMP 36.4; O2SAT 98
[2022-04-27 06:30] LABS: Basophils Absolute Auto 0.1 K/mm3 (0.0-0.1); Basophils Percent Auto 0.8 % (0.2-1.2); Eosinophils Absolute Auto 0.5 K/mm3 (0-0.3); Eosinophils Percent Auto 4.7 % (0-4.4); Hematocrit 47.3 % (37.0-47.0); Hemoglobin 14.8 g/dL (12.0-15.0); Immature Granulocyte Absolute 0.09 K/mm3 (0.00-0.031); Immature Granulocyte Percent A 0.9 % (0-0.5); Lymphocytes Absolute Auto 2.81 K/mm3 (0.9-3.2); Lymphocytes Percent Auto 27.7 % (18.3-44.2); Mean Corpuscular HGB Conc 31.3 g/dl (32-36); Mean Corpuscular Hemoglobin 28.2 pg (26-34); Mean Corpuscular Volume 90.1 fl (80-100); Mean Platelet Volume 10.1 fl (7.4-10.4); Monocytes Absolute Auto 0.9 K/mm3 (0.1-0.6); Monocytes Percent Auto 9.1 % (2.6-8.5); Neutrophils Absolute Auto 5.8 K/mm3 (1.3-6.7); Neutrophils Percent Auto 56.8 % (45.5-73.1); Platelet Count Result 316 k/mm3 (150-375); Red Blood Count 5.25 M/mm3 (4.2-5.4); Red Cell Distribution Width 15.4 % (11.5-14.5); White Blood Count 10.2 K/mm3 (4.5-10.0)
[2022-04-27 06:44] LABS: Alanine Aminotransferase 28 U/L (6-35); Albumin Level 4.3 g/dL (3.5-5.1); Alkaline Phosphatase 58 U/L (38-126); Anion Gap 9 mmol/L (8-16); Aspartate Amino Transferase 49 U/L (14-36); Bilirubin,Total 0.5 mg/dL (0.2-1.3); Blood Urea Nitrogen 13 mg/dL (7-17); Calcium 8.7 mg/dL (8.4-10.2); Carbon Dioxide 23 mmol/L (22-30); Chloride 106 mmol/L (98-107); Estimated CRCL calculation 48 ml/min; Estimated Glomerular Filt Rate 36; Glucose 105 mg/dL (65-110); Potassium 4.2 mmol/L (3.4-5.0); Sodium 138 mmol/L (137-145)
[2022-04-27 07:14] LABS: Total Triiodothyronine (T3) 0.77 NG/ML (0.97-1.69)
[2022-04-27 08:00] VITALS: BP 138/73; PULSE 106; PULSE 61; PULSE 67; RESP 16; RESP 18; TEMP 35.6; O2SAT 98
--- NOTE | 2022-04-27 09:18 | PC.NURSE ---
informed Natividad pt provider, pt requesting anxiety medication while in hospital, ativan 0.25 q6hrs ordered prn for pt this shift.
[2022-04-27] MEDS: LEVOTHYROXINE SODIUM 50 MCG TABLET PO (09:29)
[2022-04-27] MEDS: LORazepam (*CRX) 0.5 MG TABLET 0.25 MG PO (09:31)
[2022-04-27 11:51] VITALS: BP 141/78; PULSE 68; RESP 18; TEMP 36.3; O2SAT 98
[2022-04-27 12:00] VITALS: PULSE 67
--- NOTE | 2022-04-27 13:50 | PM.DS ---
DS: Admitting Diagnosis Discharge Date 04/27/2022 Admitting Diagnosis Uncontrolled hypothyroidism DS: Discharge Diagnosis Discharge Diagnosis (1) Hypothyroidism: Code(s): E03.9 - Hypothyroidism, unspecified Status: Acute Assessment and Plan: Pts TSH >100 with low T4? consistent with hypothyroidism Patient will discharge home with levothyroxine 50 mcg daily. She will follow with her hand screen printer she has appointment with in a couple weeks and her primary care physician Patient instructed that she will need another TSH at 6 8 weeks (2) Renal tubular acidosis: Code(s): N25.89 - Other disorders resulting from impaired renal tubular function Status: Chronic Assessment and Plan: Continue home medication (3) Pyuria: Code(s): R82.81 - Pyuria Status: Acute Assessment and Plan: UA final reading bacterial growth only normal floor (4) Generalized weakness: Code(s): R53.1 - Weakness Status: Acute Assessment and Plan: Secondary to uncontrolled hypothyroidism Treat underlying cause Plan Uncontrolled Hypothyroidism DS: Summary Hospital Course Reason for hospitalization: Uncontrolled hypothyroidism Hospital Course: 56-year-old female past medical history of obesity, hypothyroidism, anxiety, CKD (appears patient's baseline creatinine around 1.4), RTA.? The patient has had issues with her thyroid medication for almost a year now.? She has been on levothyroxine 175 mcg for the last 30 years, however late last fall patient had her medication filled at the pharmacy and was given brand name Synthroid instead.? Patient had a reaction after taking the brand name, stating ?it did not sit well. She was switched back to a generic levothyroxine, however was noted to be hyperthyroid and dose was decreased to 137 mcg and September of 2021.? Patient's dosage was subsequently decreased again to 125 mcg due to follow-up labs showing hyperthyroid.? From May 2021 up until January 2022 patient was switched multiple times from generic to brand name back and forth.? Patient's TSH was 0.03 in January 2022.? Patient was evaluated here in the ED February 2022 due to persistent symptoms of fatigue and weakness.? TSH was found to be low, and free T4 Was normal with slightly elevated T3.? At that time, patient was taken off levothyroxine completely by her family doctor.? Between February and now, patient apparently found to be hypothyroid and was started on [place] Thyroid 15 mg.? In ED , patient's TSH found to be above 100 with a low T4. Patient will discharge home today with levothyroxine at 50 mcg. She has an appointment with hand screen printer who will manage her hypothyroidism in 2 weeks. Patient still continues to feel fatigued. It was explained to patient that it may take some time for medication to be effective. She will also go with Ativan due to anxiety. Patient denies any chest pain, shortness a breath, palpitation, lightheadedness, vertigo, constipation diarrhea, or nausea vomiting. Time Spent with Patient Time attestation: Total time spent providing and/or coordinating discharge services: Exam Narrative: General: Pleasant, no obvious distress noted HEENT: PERRLA, Mucous Membranes Moist and [place], Nares Patent, Sclera Clear Neck: JVD, Supple Pulmonary: Clear to Auscultation, Normal Air Movement Cardiovascular: No Murmurs, Gallops, or Rubs, Regular Rhythm, Regular Rate Abdominal: Abdomen Soft, Non-Distended, Normal Bowel Sounds Extremities: Normal Pulses Integumentary: No Abnormalities Neurological: Normal Gait, Normal Speech Psychological: Mental Status NL, Mood NL DS: Data Data Completed and Pending Labs on day of discharge: Labs from last 24 hours 04/27/22 04/27/22 05:48 05:48 WBC 10.2 H RBC 5.25 Hgb 14.8 Hct 47.3 H MCV 90.1 MCH 28.2 MCHC 31.3 L RDW 15.4 H Plt Count 316 MPV 10.1 Immature Gran % (Auto) 0.9 H Neut % (Auto) 56.8 Lymph
--- NOTE | 2022-04-27 14:10 | PC.NURSE ---
Iv removed, discharge paperwork explained, verbalized understanding. Prescription transmitted to [facility] in [place].
[2022-04-27 14:36] VITALS: BP 141/78; PULSE 68; RESP 18; TEMP 36.3; O2SAT 98
== END 2022-04-27 14:50 | disposition home or self-care (01) ==
LOC: ANHED 21:27 → ANH3MEDSUR 21:54
PROVIDERS: Admitting Provider Internal Medicine; Emergency Provider Nurse Practitioner Family; PCP Family Medicine; Visit Provider Physician Assistant
DX: E03.9 Hypothyroidism, unspecified (principal); N25.89 Other disorders resulting from impaired renal tubular function; R82.81 Pyuria; N18.30 Chronic kidney disease, stage 3 unspecified; Z96.0 Presence of urogenital implants; E66.9 Obesity, unspecified; Z68.41 Body mass index [BMI] 40.0-44.9, adult; Z20.822 Contact with and (suspected) exposure to COVID-19; Z87.442 Personal history of urinary calculi; Z57.31 Occupational exposure to environmental tobacco smoke; Z79.899 Other long term (current) drug therapy; Z84.89 Family history of other specified conditions
CPT/HCPCS: 36415; 80048; 80053; 80076; 81001; 84439; 84443; 84480; 85025; 87086; 87088; 93005; 96361; 96374; 99285; A9270; C9803; G0378; J0696; J7030; U0003; U0005

== ENCOUNTER 2022-05-07 14:52 | Outpatient (CLI) | payer OTHER, SELFPAY ==
--- NOTE | ~2022-05-07 | US_ITS ---
US thyroid INDICATION: Hypothyroidism TECHNIQUE: Real-time sonographic images of the thyroid gland were obtained. COMPARISON: No prior studies for comparison. FINDINGS: The right thyroid lobe measures 3.3 x 0.7 x 0.8 cm. The left thyroid lobe measures 4.4 x 1 .4 x 1.1 cm. There is normal echotexture and echogenicity throughout the thyroid gland. In the left l obe there is a hypoechoic nodule measuring 12 x 8 x 7 mm with echogenic hilum, circumscribed margins, wider than tall, smooth margins and no echogenic foci, TR 4. No discrete mass in the right lobe. Nor mal color flow in both lobes. Normal vascular flow is present. IMPRESSION: 1. Left thyroid mass measuring up to 12 mm, TR 4 classification. Follow-up ultrasound in 12 months r ecommended. Reviewed, dictated and finalized at location B. IMPRESSION: 1. Left thyroid mass measuring up to 12 mm, TR 4 classification. Follow-up ult rasound in 12 months recommended.
== END 2022-05-07 14:53 | disposition home or self-care (01) ==
PROVIDERS: PCP Family Medicine; Visit Provider Nurse Practitioner Family
DX: E03.9 Hypothyroidism, unspecified (principal); R53.1 Weakness
CPT/HCPCS: 76536

== ENCOUNTER 2022-05-11 23:23 | Emergency (ER) | payer OTHER, SELFPAY ==
[2022-05-11 23:26] VITALS: BP 178/91; PULSE 98; RESP 18; TEMP 36.7; O2SAT 98
--- NOTE | 2022-05-11 23:42 | PC.NURSE ---
Pt reports she is in the ED to have a thyroid panel done to check her thyroid and also wants to be checked for sepsis because she feels chilled
[2022-05-11 23:53] LABS: Basophils Absolute Auto 0.1 K/mm3 (0.0-0.1); Basophils Percent Auto 0.5 % (0.2-1.2); Eosinophils Absolute Auto 0.5 K/mm3 (0-0.3); Eosinophils Percent Auto 3.3 % (0-4.4); Hematocrit 45.9 % (37.0-47.0); Hemoglobin 14.8 g/dL (12.0-15.0); Immature Granulocyte Absolute 0.06 K/mm3 (0.00-0.031); Immature Granulocyte Percent A 0.4 % (0-0.5); Lymphocytes Percent Auto 16.7 % (18.3-44.2); Mean Corpuscular HGB Conc 32.2 g/dl (32-36); Mean Corpuscular Hemoglobin 28.9 pg (26-34); Mean Corpuscular Volume 89.6 fl (80-100); Mean Platelet Volume 9.6 fl (7.4-10.4); Monocytes Absolute Auto 1.3 K/mm3 (0.1-0.6); Monocytes Percent Auto 9.5 % (2.6-8.5); Neutrophils Absolute Auto 9.6 K/mm3 (1.3-6.7); Neutrophils Percent Auto 69.6 % (45.5-73.1); Platelet Count Result 292 k/mm3 (150-375); Red Blood Count 5.12 M/mm3 (4.2-5.4); Red Cell Distribution Width 15.3 % (11.5-14.5); White Blood Count 13.7 K/mm3 (4.5-10.0)
[2022-05-12 00:04] LABS: Alanine Aminotransferase 31 U/L (6-35); Albumin Level 4.7 g/dL (3.5-5.1); Alkaline Phosphatase 60 U/L (38-126); Anion Gap 13 mmol/L (8-16); Aspartate Amino Transferase 46 U/L (14-36); Bilirubin,Total 0.5 mg/dL (0.2-1.3); Blood Urea Nitrogen 17 mg/dL (7-17); Calcium 10.3 mg/dL (8.4-10.2); Carbon Dioxide 21 mmol/L (22-30); Chloride 104 mmol/L (98-107); Estimated CRCL calculation 47 ml/min; Estimated Glomerular Filt Rate 36; Glucose 130 mg/dL (65-110); Lactic Acid Reflex 1.3 mmol/L (0.7-2.0); Potassium 3.6 mmol/L (3.4-5.0); Sodium 138 mmol/L (137-145)
[2022-05-12 00:41] LABS: Thyroid Stimulating Hormone > 100.000 uIU/mL (0.465-4.680)
--- NOTE | 2022-05-12 00:53 | ED.GENADULT ---
HPI - General Adult General Chief complaint: Unspecified Stated complaint: thyroid issues Time Seen by Provider: 05/11/22 23:35 History of Present Illness HPI narrative: 56-year-old female presented the emergency room for continued weakness and fatigue. Patient has recently been seen multiple times for abnormal TSH levels due to multiple dosing changes of her thyroid medications. Patient states that she is feeling very cold, and continues to feel sick. Patient states she was recently seen in her primary care's office and was diagnosed with a UTI, and was placed on Macrobid. Patient denies any dysuria or lower abdominal pain. Denies fevers. Patient has a follow-up with her personal care worker on Thursday Related Data Home Medications Medication Instructions Recorded Confirmed spironolactone 25 mg tablet 25 mg PO DAILY 11/10/19 05/07/22 allopurinol 100 mg tablet 100 mg PO DAILY 01/30/22 05/07/22 Allergies Allergy/AdvReac Type Severity Reaction Status Date / Time No Known Allergies Allergy Verified 05/07/22 08:17 Review of Systems Review of Systems: CONSTITUTIONAL: Reports chills EYES: Denies visual changes, redness, or discharge. ENT: Denies rhinorrhea, congestion, sore throat, or otalgia. CARDIOVASCULAR: Denies chest pain, palpitations, or edema. RESPIRATORY: Denies cough or dyspnea. GASTROINTESTINAL: Denies abdominal pain, nausea, vomiting, or diarrhea. GENITOURINARY: Denies dysuria or hematuria. SKIN: Denies rash or itching. MUSCULOSKELETAL: Denies back pain, joint pain, or myalgia. NEUROLOGIC: Denies headache, numbness, dizziness, or weakness. PSYCHIATRIC: Denies anxiety or depression. [facility] Past Medical History Medical History BMI 37.0-37.9, adult BMI greater than 40 Chronic kidney disease Edema Kidney stones Renal tubular acidosis Surgical History Surgical History S/P ureteral stent placement Family History Family History Father Acute myocardial infarction Tobacco abuse Mother Cerebrovascular accident Sibling Thyroid activity decreased Other Family history of cardiovascular disease Hypertension Social History Social History (Reviewed 05/07/22 @ 14:32 by CARTER Aly 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 HEAD: Normocephalic, atraumatic. EYES: Conjunctivae normal, PERRLA and EOMI. NECK: Supple. No adenopathy or masses. CHEST: Clear to auscultation. No respiratory distress. No wheezes rales or rhonchi. No tenderness. HEART: Regular rate and rhythm. No murmur heard. Normal peripheral pulses. ABDOMEN: Soft, nontender, nondistended, normal active bowel sounds. EXTREMITIES: Normal range of motion. No edema. No clubbing or cyanosis SKIN: Warm, dry, no rash. No noted wounds NEURO: No focal deficits. Alert and oriented x3. MAEW. CN's II-XI intact bilaterally, normal gait PSYCH: Cooperative. Anxious. Course Vital Signs Vital signs: Vital Signs Temperature 36.7 C 05/11/22 23:26 Pulse Rate 98 05/11/22 23:26 Respiratory Rate 18 05/11/22 23:26 Blood Pressure 178/91 H 05/11/22 23:26 Pulse Oximetry 98 05/11/22 23:26 Oxygen Delivery Room Air 05/11/22 23:26 Temperature 36.6 C 05/12/22 01:31 Pulse Rate 69 05/12/22 01:31 Respiratory Rate 16 05/12/22 01:31 Blood Pressure 114/94 H 05/12/22 01:31 Pulse Oximetry 98 05/12/22 01:31 Oxygen Delivery Room Air 05/11/22 23:26 M
[2022-05-12 01:26] LABS: Appearance Urine Clear (Clear); Bilirubin Urine Negative (Negative); Color Urine Yellow (Yellow); Glucose Urine UA Negative (Negative); Ketones Urine Negative (Negative); Leukocyte Esterase Ur 2+ LEU/UL (Negative); Nitrate Urine Negative (Negative); Protein Urine Trace mg/dL (Negative); Urobilinogen Urine 0.2 mg/dL (<2.0)
[2022-05-12 01:29] LABS: Bacteria Urine Trace /hpf; Mucus Urine Rare /lpf; RBC Urine 0-2 /hpf (0-2); Squamous Epithelial Cell Urine Rare /hpf (Few); WBC Urine 31-50 /hpf
[2022-05-12 01:31] VITALS: BP 114/94; PULSE 69; RESP 16; TEMP 36.6; O2SAT 98
[2022-05-12 01:32] LABS: Add Urine Microscopic? YES; Blood Urine Trace (Negative)
[2022-05-12] MEDS: CEPHALEXIN 500 MG CAPSULE PO (01:43)
== END 2022-05-12 02:09 | disposition home or self-care (01) ==
PROVIDERS: Emergency Provider Nurse Practitioner Family; PCP Family Medicine
DX: N39.0 Urinary tract infection, site not specified (principal); R53.83 Other fatigue; N18.9 Chronic kidney disease, unspecified
CPT/HCPCS: 36415; 80053; 81001; 83605; 84443; 85025; 87077; 87086; 87186; 99283; A9270

== ENCOUNTER 2022-05-13 00:49 | Emergency (ER) | payer OTHER, SELFPAY ==
[2022-05-13 00:55] VITALS: BP 145/83; PULSE 68; RESP 16; TEMP 36.9; O2SAT 98
[2022-05-13 02:43] LABS: Basophils Percent Auto 0.2 % (0.2-1.2); Eosinophils Percent Auto 0.1 % (0-4.4); Hematocrit 46.4 % (37.0-47.0); Hemoglobin 15.2 g/dL (12.0-15.0); Immature Granulocyte Absolute 0.07 K/mm3 (0.00-0.031); Immature Granulocyte Percent A 0.5 % (0-0.5); Lymphocytes Absolute Auto 1.51 K/mm3 (0.9-3.2); Lymphocytes Percent Auto 11.3 % (18.3-44.2); Mean Corpuscular HGB Conc 32.8 g/dl (32-36); Mean Corpuscular Hemoglobin 28.8 pg (26-34); Mean Platelet Volume 9.7 fl (7.4-10.4); Monocytes Absolute Auto 0.6 K/mm3 (0.1-0.6); Monocytes Percent Auto 4.4 % (2.6-8.5); Neutrophils Absolute Auto 11.2 K/mm3 (1.3-6.7); Neutrophils Percent Auto 83.5 % (45.5-73.1); Platelet Count Result 325 k/mm3 (150-375); Red Blood Count 5.27 M/mm3 (4.2-5.4); Red Cell Distribution Width 15.1 % (11.5-14.5); White Blood Count 13.4 K/mm3 (4.5-10.0)
--- NOTE | 2022-05-13 02:46 | ED.FEMALEGU ---
HPI - Female Genitourinary General Chief complaint: Urogenital-Female Stated complaint: UTI Time Seen by Provider: 05/13/22 01:22 History of Present Illness HPI Narrative: Pt is a 56 y/o female, PMhx of renal tubular acidosis and CKD, presents to ED via POV with C/O chills at home this evening. She was diagnosed with a UTI on 05/11/2022 and discharge home on oral cephalexin. She then saw her PCP yesterday afternoon for follow up and Rocephin was given IM around 1600 for persistent urinary symptoms. She advises she spoke with her bitumen plant operator and informed him of her chills last HS and she was instructed to present to the ER for a repeat lab battery to determine if the chills she was experiencing were related to progression of her illness. She did check her temperature when she was experiencing chills and notes her temp was 97-98 degrees. She denies associated flank pain, nausea or vomiting. She has no other complaints at this time. Related Data Home Medications Medication Instructions Recorded Confirmed spironolactone 25 mg tablet 25 mg PO DAILY 11/10/19 05/07/22 allopurinol 100 mg tablet 100 mg PO DAILY 01/30/22 05/07/22 Allergies Allergy/AdvReac Type Severity Reaction Status Date / Time No Known Allergies Allergy Verified 05/07/22 08:17 Review of Systems Constitutional: Comments: refer to HPI Genitourinary: Comments: refer to HPI [facility] Past Medical History Medical History BMI 37.0-37.9, adult BMI greater than 40 Chronic kidney disease Edema Kidney stones Renal tubular acidosis Surgical History Surgical History S/P ureteral stent placement Family History Family History Father Acute myocardial infarction Tobacco abuse Mother Cerebrovascular accident Sibling Thyroid activity decreased Other Family history of cardiovascular disease Hypertension Social History Social History 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[employer] Gender identity (if verbalized by the patient): Female Spiritual care concerns: No Exam Const: General: healthy appearing and no acute distress Orientation/consciousness: patient oriented x3 Limitations: no limitations HENMT: Head: normal to inspection Eyes: Conjunctivae: conjunctivae normal EOM: EOMs intact bilaterally Neck: Neck: normal visual inspection and no meningeal signs Resp: Effort & Inspection: normal respiratory effort Auscultation: clear to auscultation bilaterally Cardio: Rate: regular rate GI: Other: no CVA TTP Neuro: General: patient oriented x3, moves all extremities, no meningeal signs and no focal motor deficits Extrem: General: normal to inspection, no clubbing, cyanosis or edema and no pedal edema Psych: Other: mildly anxious when conversing about prior illnesses. Pleasant Course Course Emergency Course: Pt's labs are reviewed, WBC is marginally improved, CMP stable, lactic acid negative. Plan to discharge home, continue oral abx, FU with PCP later today to discuss any additional indications for repeat Rocephin dosing. Pt is agreeable with plan. Vital Signs Vital signs: Vital Signs Temperature 36.9 C 05/13/22 00:55 Pulse Rate 68 05/13/22 00:55 Respiratory Rate 16 05/13/22 00:55 Blood Pressure 145/83 H 05/13/22 00:55 Pulse Oximetry 98 05/13/22 00:55 Oxygen Delivery Room Air 05/13/22 00:55 Temperature 36.9 C 05/13/22 00:55 Pulse Rate 68 05/13/22 00:55 Respiratory Rate 16 05/13/22 00:55 Blood Pressure 145/83 H 05/13/22 00:55 Pulse Oximetry 98 05/13/22 00:55 Oxygen De
[2022-05-13 02:53] LABS: Alanine Aminotransferase 35 U/L (6-35); Albumin Level 5.3 g/dL (3.5-5.1); Alkaline Phosphatase 68 U/L (38-126); Anion Gap 14 mmol/L (8-16); Aspartate Amino Transferase 51 U/L (14-36); Blood Urea Nitrogen 14 mg/dL (7-17); Calcium 9.4 mg/dL (8.4-10.2); Carbon Dioxide 20 mmol/L (22-30); Chloride 105 mmol/L (98-107); Estimated CRCL calculation 50 ml/min; Estimated Glomerular Filt Rate 39; Glucose 132 mg/dL (65-110); Potassium 4.2 mmol/L (3.4-5.0); Sodium 139 mmol/L (137-145)
[2022-05-13 03:16] VITALS: BP 148/77; PULSE 89; RESP 18; O2SAT 98
== END 2022-05-13 03:17 | disposition home or self-care (01) ==
PROVIDERS: Emergency Provider Nurse Practitioner Family; PCP Family Medicine
DX: N30.00 Acute cystitis without hematuria (principal); N18.9 Chronic kidney disease, unspecified; N25.89 Other disorders resulting from impaired renal tubular function; Z87.442 Personal history of urinary calculi; Z96.0 Presence of urogenital implants
CPT/HCPCS: 36415; 80053; 83605; 85025; 99283

== ENCOUNTER 2022-05-15 15:45 | Outpatient (CLI) | payer OTHER, SELFPAY ==
--- NOTE | ~2022-05-15 | XR_ITS ---
EXAMINATION: XR abdomen/kub 1V DATE: 05/15/2022 16:20 INDICATION: Stage III chronic kidney disease. Renal stones. Vitamin D deficiency. TECHNIQUE: A supine view of the abdomen on 2 radiographs was obtained. COMPARISON: None. FINDINGS: Numerous bilateral renal stones, right greater than left. The majority are less than 5 mm however the re u heart is larger stones including a 1.9 cm stone at the lower pole of the left kidney, 1.8 cm sto ne at the mid right kidney and 1.5 cm stone at the lower pole of the right kidney and 1.4 cm stone pr ojecting over the region of the right ureteropelvic junction. 3 to 4 mm distal left ureteral stone pr ojecting slightly inferior to the left sacroiliac joint. Unchanged small phlebolith in the right madi pelvis. No dilated loops of bowel to suggest obstruction. IMPRESSION: 1. Bilateral nephrolithiasis with 3-4 mm stone at the distal left ureter and 0.4 cm stone in the rolo on of the right ureteropelvic junction. Reviewed, dictated and finalized at location A. IMPRESSION: 1. Bilateral nephrolithiasis with 3-4 mm stone at the distal left ureter and 0. 4 cm stone in the region of the right ureteropelvic junction.
== END 2022-05-15 15:46 | disposition home or self-care (01) ==
PROVIDERS: PCP Family Medicine; Visit Provider Internal Medicine Nephrology
DX: E55.9 Vitamin D deficiency, unspecified (principal); N18.32 Chronic kidney disease, stage 3b; N20.2 Calculus of kidney with calculus of ureter
CPT/HCPCS: 74018

== ENCOUNTER 2022-05-17 22:32 | Emergency (ER) | payer OTHER, SELFPAY ==
--- NOTE | ~2022-05-17 | CT_ITS ---
EXAMINATION: CT abdomen pelvis w con INDICATION: Persistent fever, urinary tract infection TECHNIQUE: Computed tomographic images of the abdomen and pelvis were obtained after the administrati on of 100 cc of Omnipaque 350 intravenous contrast. The dose-length product (DLP) was 1491.86 mGy-cm. Automated exposure control and iterative reconstruction technique were employed. COMPARISON: 11/12/2020 FINDINGS: Minimal dependent atelectasis is present in the lung bases. The heart size is normal. Breas t implants are noted. The liver is diffusely low in attenuation when compared with the spleen, consis tent with hepatic steatosis. The spleen, pancreas, gallbladder, and adrenal glands are normal. There is medullary nephrocalcinosis of the kidneys. There is a 12 mm stone in the right renal pelvis which causes mild hydronephrosis. There are two adjacent 2 mm stones in the distal left ureter. Medullary n ephrocalcinosis is noted. No pathologically enlarged abdominal or pelvic lymph nodes are identified. There is no free intraperitoneal gas or evidence of bowel obstruction. There is mild lumbar spondylos is. There is a fat-containing umbilical hernia. IMPRESSION: 1. 12 mm stone in the right renal pelvis causing mild hydronephrosis. 2. Two adjacent 2 mm stones of the distal left ureter. 3. Bilateral medullary nephrocalcinosis. 4. Diffuse hepatic steatosis. Reviewed, dictated and finalized at location A.
--- NOTE | ~2022-05-17 | XR_ITS ---
EXAMINATION: XR chest 2V DATE: 05/17/2022 23:22 INDICATION: Fever and chills TECHNIQUE: PA and lateral views of the chest are obtained. COMPARISON: 08/23/2015 FINDINGS: The lungs are free of acute opacities. No pleural effusion or pneumothorax. The cardiomedia stinal silhouette is normal. There is mild thoracic spondylosis. Bilateral breast implants are noted. IMPRESSION: 1. No acute cardiopulmonary abnormality. Reviewed, dictated and finalized at location A.
[2022-05-17 22:39] VITALS: BP 157/73; PULSE 74; RESP 18; TEMP 36.9; O2SAT 98
--- NOTE | 2022-05-17 22:58 | ED.GENADULT ---
HPI - General Adult General Chief complaint: Unspecified Stated complaint: chills, dx UTI Time Seen by Provider: 05/17/22 22:43 Source: patient Limitations: no limitations History of Present Illness HPI narrative: This is a 56 year old female that presents to the ER for chills noted over the last couple of weeks. Reports some associated dysuria. She has been on several antibiotics for a UTI recently. Denies fever, abdominal pain, vomiting, cough. Related Data Home Medications Medication Instructions Recorded Confirmed spironolactone 25 mg tablet 25 mg PO DAILY 11/10/19 05/07/22 allopurinol 100 mg tablet 100 mg PO DAILY 01/30/22 05/07/22 Allergies Allergy/AdvReac Type Severity Reaction Status Date / Time No Known Allergies Allergy Verified 05/07/22 08:17 [facility] Past Medical History Medical History BMI 37.0-37.9, adult BMI greater than 40 Chronic kidney disease Edema Kidney stones Renal tubular acidosis Surgical History Surgical History S/P ureteral stent placement Family History Family History Father Acute myocardial infarction Tobacco abuse Mother Cerebrovascular accident Sibling Thyroid activity decreased Other Family history of cardiovascular disease Hypertension Social History Social History 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 Clements about patient and workup. Patient will be discharged with oral antibiotic, Flomax. We will likely be able to pass small distal stone. Will follow-up for definitive management of larger stone in the renal pelvis Date: 05/18/22 Time: 03:43 Vital Signs Vital signs: Vital Signs Temperature 98.4 F 05/17/22 22:39 Pulse Rate 74 05/17/22 22:39 Respiratory Rate 18 05/17/22 22:39 Blood Pressure 157/73 H 05/17/22 22:39 Pulse Oximetry 98 05/17/22 22:39 Oxygen Delivery Room Air 05/17/22 22:39 Temperature 98.4 F 05/17/22 22:39 Pulse Rate 60 05/18/22 01:01 Respiratory Rate 20 05/18/22 01:01 Blood Pressure 132/71 05/18/22 01:01 Pulse Oximetry 98 05/18/22 01:01 Oxygen Delivery Room Air 05/17/22 22:39 Medical Decision Making MDM Narrative Medical decision making narrative: Patient presents to the emergency department for chills and urinary discomfort. Recently treated for a UTI. She is afebrile and nontoxic-appearing. CBC with mild leukocytosis to 13.5. Lactic acid is not elevated. Kidney function appears to be around her baseline. UA with 1+ leuk esterase and 10-[address] scan of the abdomen and pelvis shows minimal left hydronephrosis with a 2 to 3 mm calculi in the distal left ureter. Also minimal right hydronephrosis with a 12 x 8 mm calculus in the renal pelvis. Extensive medullary nephrocalcinosis. Possible colitis. Patient symptoms more consistent with her kidney stone. Do not suspect colitis in the patient at this time. Patient was updated on case findings. Spoke with Dr. Clements about patient and workup. Patient will be discharged with oral antibiotic, Flomax. We will likely be able to pass small distal stone. Will follow-up for definitive management of larger stone in the renal pelvis. Patient is stable and felt appropriate for further outpatient evaluation. She was given warnings to return to the ER Vital Signs Vital Signs: Vital Signs Temperature 98.4 F 05/17/22 22:39 Pulse Rate 74 05/17/22 22:39 Respirato
[2022-05-17 23:22] LABS: Basophils Absolute Auto 0.1 K/mm3 (0.0-0.1); Basophils Percent Auto 0.6 % (0.2-1.2); Eosinophils Absolute Auto 0.4 K/mm3 (0-0.3); Hemoglobin 14.4 g/dL (12.0-15.0); Immature Granulocyte Absolute 0.05 K/mm3 (0.00-0.031); Immature Granulocyte Percent A 0.4 % (0-0.5); Lymphocytes Absolute Auto 2.85 K/mm3 (0.9-3.2); Lymphocytes Percent Auto 21.1 % (18.3-44.2); Mean Corpuscular Hemoglobin 28.7 pg (26-34); Mean Corpuscular Volume 89.8 fl (80-100); Mean Platelet Volume 9.5 fl (7.4-10.4); Monocytes Absolute Auto 1.4 K/mm3 (0.1-0.6); Monocytes Percent Auto 10.2 % (2.6-8.5); Neutrophils Absolute Auto 8.7 K/mm3 (1.3-6.7); Neutrophils Percent Auto 64.7 % (45.5-73.1); Platelet Count Result 323 k/mm3 (150-375); Red Blood Count 5.01 M/mm3 (4.2-5.4); Red Cell Distribution Width 15.2 % (11.5-14.5); White Blood Count 13.5 K/mm3 (4.5-10.0)
[2022-05-17 23:23] LABS: Appearance Urine Clear (Clear); Bilirubin Urine Negative (Negative); Blood Urine Trace-lysed (Negative); Color Urine Yellow (Yellow); Glucose Urine UA Negative (Negative); Ketones Urine Negative (Negative); Leukocyte Esterase Ur 1+ LEU/UL (Negative); Nitrate Urine Negative (Negative); Protein Urine 1+ mg/dL (Negative); Specific Grav Ur 1.015 (1.001-1.035); Urobilinogen Urine 0.2 mg/dL (<2.0)
[2022-05-17 23:28] LABS: Mucus Urine Rare /lpf; RBC Urine 0-2 /hpf (0-2); Squamous Epithelial Cell Urine Rare /hpf (Few)
[2022-05-17 23:35] LABS: Alanine Aminotransferase 35 U/L (6-35); Alkaline Phosphatase 62 U/L (38-126); Anion Gap 13 mmol/L (8-16); Aspartate Amino Transferase 52 U/L (14-36); Bilirubin,Total 0.6 mg/dL (0.2-1.3); Blood Urea Nitrogen 16 mg/dL (7-17); Calcium 9.2 mg/dL (8.4-10.2); Carbon Dioxide 21 mmol/L (22-30); Chloride 105 mmol/L (98-107); Estimated CRCL calculation 44 ml/min; Estimated Glomerular Filt Rate 33; Glucose 138 mg/dL (65-110); Lactic Acid Reflex 1.1 mmol/L (0.7-2.0); Potassium 3.6 mmol/L (3.4-5.0); Sodium 139 mmol/L (137-145)
[2022-05-17 23:46] LABS: Add Urine Microscopic? YES
[2022-05-17 23:56] VITALS: O2SAT 97
[2022-05-17 23:57] VITALS: BP 140/69; O2SAT 98
[2022-05-18] VITALS (15 sets, daily range): BP systolic 128–145; BP diastolic 68–109; PULSE 60–72; RESP 20; O2SAT 95–99
[2022-05-18 00:14] LABS: Monoscreen Negative (Negative); Negative Monotest Control Negative (Negative); Positive Monotest Control Positive (Positive)
[2022-05-18 00:30] LABS: SARS-CoV-2 RNA PCR Negative
[2022-05-18] MEDS: SODIUM CHLORIDE 0.9% IV 1,000 ML 999 ML IV CONT (01:26)
== END 2022-05-18 04:08 | disposition home or self-care (01) ==
PROVIDERS: Physician Assistant; Emergency Provider Emergency Medicine; PCP Family Medicine
DX: N13.2 Hydronephrosis with renal and ureteral calculous obstruction (principal); N18.9 Chronic kidney disease, unspecified; Z87.442 Personal history of urinary calculi; Z96.0 Presence of urogenital implants; K76.0 Fatty (change of) liver, not elsewhere classified; E83.59 Other disorders of calcium metabolism; N29 Other disorders of kidney and ureter in diseases classified elsewhere
CPT/HCPCS: 36415; 71046; 74177; 80053; 81001; 83605; 85025; 86308; 87086; 87804; 96360; 99284; C9803; J7030; Q9967; U0003; U0005

== ENCOUNTER 2022-05-21 21:11 | Emergency (ER) | payer OTHER, SELFPAY ==
--- NOTE | ~2022-05-21 | XR_ITS ---
EXAM: XR abdomen/kub 1V DATE: 05/21/2022 22:51 HISTORY: left sided stones . COMPARISON: CT abdomen and pelvis 05/10/2022, x-ray abdomen 05/15/2022. FINDINGS: Normal bowel gas pattern. No organomegaly. Medullary nephrocalcinosis. Bilateral calyceal stones, stable. Right UPJ stone, stable. Distal left ureteral stones are stable. Regional bones and s oft tissues normal for age. IMPRESSION: Stable distal left ureteral stones and bilateral nephrolithiasis. Reviewed, dictated and finalized at location K.
[2022-05-21 21:15] VITALS: BP 150/87; PULSE 69; RESP 16; TEMP 36.3; O2SAT 99
[2022-05-21] MEDS: SODIUM CHLORIDE 0.9% IV 1,000 ML 999 ML IV CONT (22:44)
[2022-05-21] MEDS: ONDANSETRON INJ 4 MG/2 ML VIAL IV PUSH (22:44)
[2022-05-21 22:45] LABS: Basophils Absolute Auto 0.1 K/mm3 (0.0-0.1); Basophils Percent Auto 0.7 % (0.2-1.2); Eosinophils Absolute Auto 0.2 K/mm3 (0-0.3); Eosinophils Percent Auto 1.7 % (0-4.4); Hemoglobin 14.7 g/dL (12.0-15.0); Immature Granulocyte Absolute 0.08 K/mm3 (0.00-0.031); Immature Granulocyte Percent A 0.6 % (0-0.5); Lymphocytes Absolute Auto 2.66 K/mm3 (0.9-3.2); Lymphocytes Percent Auto 20.5 % (18.3-44.2); Mean Corpuscular HGB Conc 32.7 g/dl (32-36); Mean Corpuscular Hemoglobin 29.3 pg (26-34); Mean Corpuscular Volume 89.8 fl (80-100); Mean Platelet Volume 9.6 fl (7.4-10.4); Monocytes Absolute Auto 1.3 K/mm3 (0.1-0.6); Monocytes Percent Auto 10.3 % (2.6-8.5); Neutrophils Absolute Auto 8.6 K/mm3 (1.3-6.7); Neutrophils Percent Auto 66.2 % (45.5-73.1); Platelet Count Result 328 k/mm3 (150-375); Red Blood Count 5.01 M/mm3 (4.2-5.4); Red Cell Distribution Width 15.1 % (11.5-14.5)
[2022-05-21 22:55] LABS: Appearance Urine Clear (Clear); Bilirubin Urine Negative (Negative); Blood Urine Negative (Negative); Color Urine Yellow (Yellow); Glucose Urine UA Negative (Negative); Ketones Urine Negative (Negative); Leukocyte Esterase Ur Trace LEU/UL (Negative); Nitrate Urine Negative (Negative); Protein Urine Negative (Negative); Urobilinogen Urine 0.2 mg/dL (<2.0); pH Urine 6.5 (5.0-9.0)
[2022-05-21 22:59] LABS: Alanine Aminotransferase 31 U/L (6-35); Albumin Level 4.8 g/dL (3.5-5.1); Alkaline Phosphatase 59 U/L (38-126); Anion Gap 13 mmol/L (8-16); Aspartate Amino Transferase 44 U/L (14-36); Bacteria Urine Trace /hpf; Bilirubin,Total 0.5 mg/dL (0.2-1.3); Blood Urea Nitrogen 16 mg/dL (7-17); Calcium 9.7 mg/dL (8.4-10.2); Carbon Dioxide 22 mmol/L (22-30); Chloride 104 mmol/L (98-107); Estimated CRCL calculation 43 ml/min; Estimated Glomerular Filt Rate 33; Glucose 102 mg/dL (65-110); Lipase 220 U/L (23-300); Mucus Urine Rare /lpf; Potassium 3.5 mmol/L (3.4-5.0); RBC Urine 0-2 /hpf (0-2); Sodium 139 mmol/L (137-145); WBC Urine 0-3 /hpf
[2022-05-21 23:01] LABS: Add Urine Microscopic? YES
--- NOTE | 2022-05-22 00:48 | ED.GENADULT ---
HPI - General Adult General Chief complaint: Abdominal Pain Stated complaint: ABD pain, dizziness, kidney stones Time Seen by Provider: 05/21/22 22:04 History of Present Illness HPI narrative: Patient is a 56-year-old female who presents ER with left-sided flank pain/abdominal pain. Has been passing stones for couple days. Was seen by urology today. Is scheduled for KUB and ultrasound tomorrow. No fevers or chills or sweats. Reports she is feeling very weak. No dysuria. Related Data Home Medications Medication Instructions Recorded Confirmed spironolactone 25 mg tablet 25 mg PO DAILY 11/10/19 05/07/22 allopurinol 100 mg tablet 100 mg PO DAILY 01/30/22 05/07/22 Allergies Allergy/AdvReac Type Severity Reaction Status Date / Time No Known Allergies Allergy Verified 05/07/22 08:17 Review of Systems Review of Systems: All systems reviewed & are unremarkable except as noted in HPI and below Constitutional: Constitutional: Denies chills, Reports fatigue, Denies fever(s) and Reports weakness ENT: Denies nasal congestion and Denies sore throat Cardiovascular: Cardiovascular: Denies chest pain, Denies rapid heart rate and Denies radiating jaw, neck or arm pain Respiratory: Respiratory: Denies cough and Denies dyspnea Gastrointestinal: Gastrointestinal: Reports abdominal pain, Reports nausea and Denies vomiting Genitourinary: Genitourinary: Reports nocturia, Denies dysuria and Reports flank pain PMFSH Past Medical History Medical History BMI 37.0-37.9, adult BMI greater than 40 Chronic kidney disease Edema Kidney stones Renal tubular acidosis Surgical History Surgical History S/P ureteral stent placement Family History Family History Father Acute myocardial infarction Tobacco abuse Mother Cerebrovascular accident Sibling Thyroid activity decreased Other Family history of cardiovascular disease Hypertension Social History Social History 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 HEAD: Normocephalic, atraumatic. EYES: PERRL and EOMI. CHEST: Clear to auscultation. No respiratory distress. HEART: Regular rate and rhythm. Normal peripheral pulses. ABDOMEN: Soft, nontender, nondistended. EXTREMITIES: Normal range of motion. No edema. SKIN: Warm, dry, no rash. NEURO: NAlert and oriented x3. PSYCH: Normal mood and affect. Course Course Emergency Course: Patient resting comfortably. Informed of results. Stone stable. Follow-up with urology. Vital Signs Vital signs: Vital Signs Temperature 97.3 F L 05/21/22 21:15 Pulse Rate 69 05/21/22 21:15 Respiratory Rate 16 05/21/22 21:15 Blood Pressure 150/87 H 05/21/22 21:15 Pulse Oximetry 99 05/21/22 21:15 Oxygen Delivery Room Air 05/21/22 21:15 Temperature 97.3 F L 05/21/22 21:15 Pulse Rate 69 05/21/22 21:15 Respiratory Rate 16 05/21/22 21:15 Blood Pressure 150/87 H 05/21/22 21:15 Pulse Oximetry 99 05/21/22 21:15 Oxygen Delivery Room Air 05/21/22 21:15 Medical Decision Making Vital Signs Vital Signs: Vital Signs Temperature 97.3 F L 05/21/22 21:15 Pulse Rate 69 05/21/22 21:15 Respiratory Rate 16 05/21/22 21:15 Blood Pressure 150/87 H 05/21/22 21:15 Pulse Oximetry 99 05/21/22 21:15 Oxygen Delivery Room Air 05/21/22 21:15 Temperature 97.3 F L 05/21/22 21:15 Pulse Rate 69
[2022-05-22 01:40] VITALS: BP 139/75; PULSE 55; RESP 18; O2SAT 98
== END 2022-05-22 01:43 | disposition home or self-care (01) ==
PROVIDERS: Emergency Provider Emergency Medicine; PCP Family Medicine
DX: N20.2 Calculus of kidney with calculus of ureter (principal); N18.9 Chronic kidney disease, unspecified; Z87.442 Personal history of urinary calculi; Z96.0 Presence of urogenital implants; Z77.22 Contact with and (suspected) exposure to environmental tobacco smoke (acute) (chronic)
CPT/HCPCS: 36415; 74018; 80053; 81001; 83690; 85025; 96374; 99284; J2405; J7030

== ENCOUNTER 2022-05-22 10:02 | Outpatient (CLI) | payer OTHER, SELFPAY ==
--- NOTE | ~2022-05-22 | CT_ITS ---
EXAMINATION: CT abdomen pelvis wo con DATE: 05/22/2022 10:24 INDICATION: Left ureteral stone. TECHNIQUE: Computed tomography (CT) of the abdomen and pelvis was performed without intravenous contr ast. Automated exposure control and iterative reconstruction technique were employed. The dose-length product was 612.45 mGy-cm. COMPARISON: CT abdomen and pelvis 05/18/2022 FINDINGS: The visualized portions of the lung bases demonstrate minimal atelectasis. No pleural effus ion. The heart size is normal. No pericardial effusion. There is diffuse hepatic steatosis. The gallb ladder, spleen, pancreas, and adrenal glands are normal. There is cortical thinning of the kidneys. T here is bilateral medullary nephrocalcinosis. There are multiple stones in each kidney measuring up t o 11 mm on the right and 14 mm on the left. There is an 11 mm stone at right ureteropelvic junction. There are 2 mm and 3 mm stones in distal left ureter. There are no dilated loops of bowel. The append ix is not visualized. There are no pathologically enlarged lymph nodes. There is no free intraperiton eal fluid. There is an umbilical hernia containing fat. There is mild thoracolumbar spondylosis. IMPRESSION: 1. 11 mm stone at right ureteropelvic junction. No hydronephrosis. 2. 2 mm and 3 mm stones in distal left ureter. No hydronephrosis. 3. Bilateral nonobstructing kidney stones. 4. Bilateral medullary nephrocalcinosis. Reviewed, dictated and finalized at location A.
== END 2022-05-22 10:03 | disposition home or self-care (01) ==
PROVIDERS: PCP Family Medicine; Visit Provider Nurse Practitioner Adult Health
DX: N20.2 Calculus of kidney with calculus of ureter (principal)
CPT/HCPCS: 74176

== ENCOUNTER 2022-05-23 00:42 | Day surgery (SDC) | payer OTHER, SELFPAY ==
[2022-05-22 13:30] VITALS: BMI 39.6
--- NOTE | 2022-05-22 13:38 | PC.NURSE ---
Report to the Outpatient Waiting Room, entrance under the green pavilion located off [facility], at time 1130 on date 05/23/22. OR Time: 1330. - You and your visitor will be asked to self-screen and do not enter if you have any COVID symptoms. - Only one visitor and NO children visitors are allowed at this time. - The patient visitor is requested to leave or wait in car when not with patient due to restrictions. - A mask is required within the hospital. Patients may have clear liquids (water, carbonated beverages, clear teas, apple juice) until 3 hours prior to surgery with a maximum of 20 ounces. - No food from midnight until time of surgery Take the following medications with a SIP of water the morning of surgery: CIPRO, UNITHROID, ATIVAN AND PAIN PILL (IF NEEDED) Medications to discontinue per physician: VITAMINS Date to take last dose: NO MORE UNTIL AFTER SURGERY Please no make-up, nail vincentian, hairspray, perfume, deodorant, or body powder the day of surgery. No jewelry (including any body piercings) or valuables the day of surgery, leave them at home. Please take a shower or bath the night before, or the morning of, surgery with an antibacterial soap. Wear comfortable, loose fitting clothing. - Jewelry must be removed prior to entering the operating room. Rings and piercings that are not removed may be cut off. - The hospital will not accept responsibility for valuables. - Please leave all valuables, including medications, at home the day of surgery. If you are going home after surgery, a licensed route sales delivery driver must drive you home. - NO public transportation without another adult. - We recommend that an adult stay with you for 24 hours following discharge. - We also recommend that you do not drive, make important decision, drink alcoholic beverages, or take any drugs that were not prescribed by your health care provider for at least 24 hours after your discharge time. Follow any additional instructions given to you from your surgeon. If you or anyone in your household have experienced Covid symptoms in the past week, please notify your surgeon or the nurse liaison at the phone number below for possible testing. Telephone instructions given to PT William MADERA and asked if any additional questions and then verbalized understanding. Patient advised to call surgeon office or pre surgery nurse liaison [phone] if any additional questions.
--- NOTE | 2022-05-22 15:44 | WPDANESEPPF ---
Anes - Initial Pre Proc Eval Procedure: Operation Date: 05/23/22 13:30 Proposed Procedures p Right Extracorporeal Shock Wave Lithotripsy, - Rhett Traylor MD s Cystoscopy, Left Ureteroscopy with Stone Extraction, Possible Bilateral Stent Placement, Bilateral Retrograde Pyelogram, Possible Holmium Laser Procedure - Rhett Traylor MD Date/Time: 05/22/22 15:44 Surgeon: Rhett Traylor MD Pre Op Diagnosis: left kidney stone,UPJ obst, rt kidney stone Patient Data Age: 56 Gender: F Height: 1.65 m Weight: 108 kg Allergies Allergy/AdvReac Type Severity Reaction Status Date / Time No Known Allergies Allergy Verified 05/23/22 11:52 Home Medications Medication Instructions Recorded Confirmed Type spironolactone 25 mg tablet 25 mg PO DAILY 11/10/19 05/23/22 History allopurinol 100 mg tablet 100 mg PO DAILY 01/30/22 05/23/22 History cholecalciferol (vitamin D3) 1,250 50,000 unit PO .Twice a month #6 04/11/22 05/23/22 Rx mcg (50,000 unit) capsule caps lorazepam 0.5 mg tablet (Ativan) 0.5 mg PO TID PRN anxiety #30 tabs 04/27/22 05/23/22 Rx hydrocodone 5 mg-acetaminophen 325 1 tablet PO Q6H PRN pain #14 tabs 05/18/22 05/23/22 Rx mg tablet tamsulosin 0.4 mg capsule 0.4 mg PO DAILY 1 week #7 caps 05/18/22 05/23/22 Rx ciprofloxacin HCl 500 mg tablet 500 mg PO BID 05/22/22 05/23/22 History levothyroxine 112 mcg tablet 88 mcg PO DAILY 05/22/22 05/23/22 History (Unithroid) Patient hx anesthesia problems: none Family hx anesthesia problems: none Results Review: All pre-operative results and documents have been reviewed as part of the pre-operative evaluation. [facility] Past Medical History Medical History (Updated 05/23/22 @ 12:38 by Yoel Soares MD) Anxiety BMI 37.0-37.9, adult BMI greater than 40 Chronic kidney disease CKD (chronic kidney disease) stage 3, GFR 30-59 ml/min Edema Hypothyroid Kidney stones JUANA (obstructive sleep apnea) Renal tubular acidosis Ureterolithiasis Surgical History Surgical History S/P ureteral stent placement Family History Family History Father Acute myocardial infarction Tobacco abuse Mother Cerebrovascular accident Sibling Thyroid activity decreased Other Family history of cardiovascular disease Hypertension Social History Social History Smoking status: Never smoker Second hand tobacco smoke exposure: Yes Alcohol intake: never Substance use: never Substance use type: does not use Living arrangements: with family 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 Informed Consent: The patient's anesthetic plan and its attendant risks and benefits were discussed with the patient/family/POA. Questions were solicited and answers provided to the satisfaction of the patient/family/POA.
[2022-05-23] VITALS (12 sets, daily range): BP systolic 123–174; BP diastolic 68–88; PULSE 65–81; RESP 10–18; TEMP 36.1–36.6; O2SAT 95–100
--- NOTE | ~2022-05-23 | XR_ITS ---
EXAMINATION: XR abdomen/kub 1V DATE: 05/23/2022 11:39 INDICATION: Kidney stones. TECHNIQUE: A supine view of the abdomen on 2 radiographs was obtained. COMPARISON: Abdomen radiographs 05/21/2022, CT abdomen and pelvis 05/22/2022 FINDINGS: There are no dilated loops of bowel. There is bilateral medullary nephrocalcinosis. There a re multiple stones in each kidney. There is a 10 x 16 mm stone in proximal right ureter. There is a p hlebolith in left pelvis. IMPRESSION: 1. Stones in the kidneys and proximal right ureter. 2. Bilateral medullary nephrocalcinosis. Reviewed, dictated and finalized at location A.
[2022-05-23] MEDS: LACTATED RINGERS 1,000 ML 30 ML IV CONT ×2 (12:15→15:35)
[2022-05-23 12:45] LABS: INR 1.1; Partial Thromboplastin Time 29.4 SECONDS (22.3-36.8); Prothrombin Time 13.7 Seconds (11.1-14.7)
--- NOTE | 2022-05-23 13:42 | PM.IMHP ---
H&P: HPI History of Present Illness Date/Time: 05/23/22 13:42 Chief Complaint: left distal ureteral calculi and right upj calculus Narrative: 56 year old recurrent stone former with 2 stones in distal right ureteral calculus (2 stones) as well as a 1 cm right proximal ureteral stone. Review of Systems Review of Systems: All systems reviewed & are unremarkable except as noted in HPI and below PMFSH Past Medical History Medical History Anxiety BMI 37.0-37.9, adult BMI greater than 40 Chronic kidney disease CKD (chronic kidney disease) stage 3, GFR 30-59 ml/min Edema Hypothyroid Kidney stones JUANA (obstructive sleep apnea) Renal tubular acidosis Ureterolithiasis Surgical History Surgical History S/P ureteral stent placement Family History Family History Father Acute myocardial infarction Tobacco abuse Mother Cerebrovascular accident Sibling Thyroid activity decreased Other Family history of cardiovascular disease Hypertension Social History Social History Smoking status: Never smoker Second hand tobacco smoke exposure: Yes Alcohol intake: never Substance use: never Substance use type: does not use Living arrangements: with family 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[employer] Gender identity (if verbalized by the patient): Female Spiritual care concerns: No Meds Home Medications and Allergies Home Medications Medication Instructions Recorded Confirmed Type spironolactone 25 mg tablet 25 mg PO DAILY 11/10/19 05/23/22 History allopurinol 100 mg tablet 100 mg PO DAILY 01/30/22 05/23/22 History cholecalciferol (vitamin D3) 1,250 50,000 unit PO .Twice a month #6 04/11/22 05/23/22 Rx mcg (50,000 unit) capsule caps lorazepam 0.5 mg tablet (Ativan) 0.5 mg PO TID PRN anxiety #30 tabs 04/27/22 05/23/22 Rx hydrocodone 5 mg-acetaminophen 325 1 tablet PO Q6H PRN pain #14 tabs 05/18/22 05/23/22 Rx mg tablet tamsulosin 0.4 mg capsule 0.4 mg PO DAILY 1 week #7 caps 05/18/22 05/23/22 Rx ciprofloxacin HCl 500 mg tablet 500 mg PO BID 05/22/22 05/23/22 History levothyroxine 112 mcg tablet 88 mcg PO DAILY 05/22/22 05/23/22 History (Unithroid) Allergies Allergy/AdvReac Type Severity Reaction Status Date / Time No Known Allergies Allergy Verified 05/23/22 11:52 Vital Signs Vital Signs - 24 hr 05/23/22 11:48 Temperature 36.6 C Pulse Rate 65 Respiratory Rate 18 Blood Pressure 141/71 H Pulse Oximetry 97 Oxygen Delivery Room Air Exam Const: General: cooperative and uncomfortable Resp: Effort & Inspection: normal respiratory effort Cardio: Rate: regular rate Rhythm: regular rhythm Neuro: General: patient oriented x3 Assessment and Plan Assessment and plan (1) Left ureteral calculus: Code(s): N20.1 - Calculus of ureter Status: Acute Assessment and Plan: Plan for cysto, left retrograde, left ureteroscopy with stone extraction , stent (2) Right ureteral stone: Code(s): N20.1 - Calculus of ureter Status: Acute Assessment and Plan: Plan for cysto right retrograde, right stent placement, right ureteral eswl.
--- NOTE | 2022-05-23 13:47 | WPDHPUPDATE1 ---
History and Physical Update Update Date/Time: 05/23/22 13:47 History and Physical has been reviewed, including an updated exam of the patient. There are NO changes in the patient's condition. Risks, benefits, and alternatives have been discussed and questions answered. Patient agrees to proceed with procedure.
[2022-05-23] MEDS: ceFAZolin 2 GM/D5W 50 ML 2 GM/50 ML BAG IVPB (14:08)
--- NOTE | 2022-05-23 15:19 | W.PM.PROC2 ---
Procedure Note - Detailed Date of Procedure 05/23/22 Pre-op Diagnosis Distal left ureteral calculi, right UPJ calculus Post-op Diagnosis Same Procedure Performed Cystoscopy, bilateral retrograde pyelogram, left ureteroscopy with holmium laser, stone extraction, bilateral ureteral stent placement, ESWL right UPJ calculus Surgeon Rhett Traylor MD Anesthesia General Description of Procedure Patient is taken to the operative suite correctly identified. Once anesthesia was obtained she was placed in dorsal lithotomy position and prepped and draped usual sterile fashion. Nineteen Togolese scope inserted the bladder. There was no tumors noted. Left ureteral orifice was cannulated with a guidewire. A rigid ureteral scope was then placed into the left ureteral orifice. The stone was visualized but was shaped in a manner that could not be removed in 1 piece. Using a 273 micron fiber we lasered the stone in multiple pieces and then sent those for analysis. Reinspection revealed no residual stone. Pyelogram was performed to confirm placement the stent. 4.8 Togolese contour stent was then placed with the proximal end coiled in the left renal pelvis and the distal end in the bladder. We then did a right retrograde pyelogram and placed a right ureteral stent 4.8 Togolese contour. Patient was repositioned in the right UPJ stone was lithotripsy with 2500 shocks. 2% viscous lidocaine had been placed in the bladder. Patient is taken recovery room stable condition. Drains Yes Packing No Pathology Yes Complications No immediate complications Condition Stable Disposition PACU
[2022-05-23] MEDS: fentaNYL CITRATE INJ (*CRX) 100 MCG/2 ML VIAL 25 MCG IV PUSH ×4 (16:13→16:42)
[2022-05-23] MEDS: oxyCODONE HCL (*CRX) 5 MG TAB IR PO (17:58)
[2022-05-23 21:55] LABS: Toxigenic C. Diff NEGATIVE (NEGATIVE)
== END 2022-05-23 18:35 | disposition home or self-care (01) ==
PROVIDERS: PCP Family Medicine; Visit Provider Urology
PROC: (CPT 50590; principal; 2022-05-23 13:30)
PROC: (CPT 52352; 2022-05-23 13:30)
DX: N20.1 Calculus of ureter (principal); N18.30 Chronic kidney disease, stage 3 unspecified; E03.9 Hypothyroidism, unspecified; G47.33 Obstructive sleep apnea (adult) (pediatric); F41.9 Anxiety disorder, unspecified; E66.9 Obesity, unspecified; Z68.39 Body mass index [BMI] 39.0-39.9, adult
CPT/HCPCS: 52356; 52332; 50590; 36415; 74018; 74420; 82365; 85610; 85730; 87493; 88300; A9270; C1758; C1769; C2617; J0690; J1100; J2250; J2405; J2704; J3010; J7120

== ENCOUNTER 2022-06-02 10:48 | Outpatient (CLI) | payer OTHER, SELFPAY ==
--- NOTE | ~2022-06-02 | XR_ITS ---
EXAMINATION: XR abdomen/kub 1V INDICATION: Kidney stones TECHNIQUE: Supine views of the abdomen were obtained on 2 radiographs. COMPARISON: 05/23/2022 FINDINGS: The previously described right ureteropelvic junction stone is no longer evident, consisten t with interval lithotripsy. There are bilateral internal ureteral stents in expected position. Multi ple small stones are seen adjacent to the distal aspect of the right internal ureteral stent, the lar gest of which measures 5 mm. Multiple bilateral stones are noted in the kidneys which are unchanged. The largest on the left measures 1.6 cm in the lower pole. The largest on the right measures 0.8 cm i n the lower pole. The bowel gas pattern is normal. The visualized lung bases are clear. IMPRESSION: 1. Interval lithotripsy of a right ureteropelvic junction stone with multiple small stone fragments a djacent to the distal aspect of the right internal ureteral stent. 2. Bilateral nephrolithiasis. Reviewed, dictated and finalized at location B. IMPRESSION: 1. Interval lithotripsy of a right ureteropelvic junction stone with multiple s mall stone fragments adjacent to the distal aspect of the right internal ureter al stent. 2. Bilateral nephrolithiasis.
== END 2022-06-02 10:49 | disposition home or self-care (01) ==
PROVIDERS: PCP Family Medicine; Visit Provider Urology
DX: N20.0 Calculus of kidney (principal)
CPT/HCPCS: 74018

== ENCOUNTER 2022-06-03 23:29 | Emergency (ER) | payer OTHER, SELFPAY ==
--- NOTE | ~2022-06-03 | CT_ITS ---
EXAMINATION: CT abdomen pelvis wo con DATE: 06/04/2022 03:16 INDICATION: Fever, recent ureteral stent insertion TECHNIQUE: Computed tomography (CT) of the abdomen and pelvis was performed without intravenous contr ast. The dose-length product (DLP) was 1450.14 mGy-cm. Automated exposure control and iterative recon struction technique were employed. COMPARISON: 05/22/2022 FINDINGS: Minimal dependent atelectasis is present in the lung bases. The heart size is normal. The l iver is diffusely low in attenuation when compared with the spleen, consistent with hepatic steatosis . The spleen, pancreas, gallbladder, and adrenal glands are normal. There are bilateral internal uret eral stents in expected position. There has been interval lithotripsy of a stone at the right uretero pelvic junction. Multiple stone fragments are seen adjacent to the distal aspect of the right interna l ureteral stent. There is been interval treatment or removal of the previously described left distal ureteral stones. Bilateral medullary nephrocalcinosis is noted. No pathologically enlarged abdominal or pelvic lymph nodes are identified. There is no free intraperitoneal gas or evidence of bowel obst ruction. There is a fat-containing umbilical hernia. IMPRESSION: 1. Bilateral internal ureteral stents in expected position. 2. Interval lithotripsy of the previously described right ureteropelvic junction stone with multiple stone fragments present adjacent to the distal aspect of the internal ureteral stent. 3. Interval treatment or removal of the previously described left distal ureteral stones. 4. Bilateral medullary nephrocalcinosis. Reviewed, dictated and finalized at location B. IMPRESSION: 1. Bilateral internal ureteral stents in expected position. 2. Interval lithotripsy of the previously described right ureteropelvic junctio n stone with multiple stone fragments present adjacent to the distal aspect of the internal ureteral stent. 3. Interval treatment or removal of the previously described left distal ureter al stones. 4. Bilateral medullary nephrocalcinosis.
[2022-06-03 23:46] VITALS: BP 153/83; PULSE 66; RESP 16; TEMP 36.8; O2SAT 99
[2022-06-04] VITALS (19 sets, daily range): BP systolic 106–143; BP diastolic 55–87; PULSE 56–71; RESP 12–22; TEMP 36.5; O2SAT 97–100
[2022-06-04 00:14] LABS: Basophils Absolute Auto 0.1 K/mm3 (0.0-0.1); Basophils Percent Auto 0.8 % (0.2-1.2); Eosinophils Absolute Auto 0.5 K/mm3 (0-0.3); Eosinophils Percent Auto 4.1 % (0-4.4); Hematocrit 44.4 % (37.0-47.0); Hemoglobin 14.4 g/dL (12.0-15.0); Immature Granulocyte Absolute 0.07 K/mm3 (0.00-0.031); Immature Granulocyte Percent A 0.6 % (0-0.5); Lymphocytes Absolute Auto 2.47 K/mm3 (0.9-3.2); Lymphocytes Percent Auto 20.9 % (18.3-44.2); Mean Corpuscular HGB Conc 32.4 g/dl (32-36); Mean Corpuscular Hemoglobin 29.2 pg (26-34); Mean Corpuscular Volume 90.1 fl (80-100); Mean Platelet Volume 9.8 fl (7.4-10.4); Monocytes Absolute Auto 1.1 K/mm3 (0.1-0.6); Monocytes Percent Auto 9.6 % (2.6-8.5); Neutrophils Absolute Auto 7.6 K/mm3 (1.3-6.7); Platelet Count Result 324 k/mm3 (150-375); Red Blood Count 4.93 M/mm3 (4.2-5.4); Red Cell Distribution Width 15.2 % (11.5-14.5); White Blood Count 11.8 K/mm3 (4.5-10.0)
[2022-06-04 00:15] LABS: Appearance Urine Cloudy (Clear); Bilirubin Urine Negative (Negative); Blood Urine 2+ (Negative); Glucose Urine UA Negative (Negative); Ketones Urine Negative (Negative); Leukocyte Esterase Ur 3+ LEU/UL (Negative); Nitrate Urine Negative (Negative); Protein Urine 2+ mg/dL (Negative); Urobilinogen Urine 0.2 mg/dL (<2.0)
[2022-06-04 00:23] LABS: Alanine Aminotransferase 26 U/L (6-35); Albumin Level 4.6 g/dL (3.5-5.1); Alkaline Phosphatase 60 U/L (38-126); Anion Gap 15 mmol/L (8-16); Aspartate Amino Transferase 28 U/L (14-36); Bilirubin,Total 0.4 mg/dL (0.2-1.3); Blood Urea Nitrogen 16 mg/dL (7-17); Carbon Dioxide 17 mmol/L (22-30); Chloride 112 mmol/L (98-107); Estimated CRCL calculation 46 ml/min; Estimated Glomerular Filt Rate 36; Glucose 115 mg/dL (65-110); Potassium 3.7 mmol/L (3.4-5.0); Sodium 144 mmol/L (137-145)
[2022-06-04 00:32] LABS: Add Urine Microscopic? YES; Color Urine Light Yellow (Yellow); RBC Urine >75 /hpf (0-2); Squamous Epithelial Cell Urine Rare /hpf (Few); WBC Urine >75 /hpf
--- NOTE | 2022-06-04 01:29 | ED.FEVER ---
HPI - Fever General Chief Complaint: Fever <SO Samuels Last Filed: 06/04/22 04:21> Stated Complaint: fever, dizziness, nausea <SO Samuels Last Filed: 06/04/22 04:21> Time Seen by Provider: 06/04/22 00:44 <SO Samuels Last Filed: 06/04/22 04:21> Source: patient and old records reviewed <SO Samuels Last Filed: 06/04/22 04:21> Mode of arrival: ambulatory <SO Smauels Last Filed: 06/04/22 04:21> Limitations: no limitations <SO Samuels Last Filed: 06/04/22 04:21> History of Present Illness HPI Narrative: Patient is a 56-year-old female who presents to the ED with report of fatigue. Per records, patient has been seen in the ED several times recently for kidney stones. She had bilateral ureteral stents placed by Dr. Traylor on 05/23 in addition to a right lithotripsy. She saw urology yesterday and had a repeat KUB performed which still showed she was passing stones. They decided to postpone stent removal at that time. Patient reports today she began feeling fatigued, general malaise, chills. No documented fever at home. She also reports having dysuria, nausea, but denies hematuria, vomiting, significant abdominal or back pain. <SO Samuels Last Filed: 06/04/22 04:21> Related Data Home Medications: Home Medications Medication Instructions Recorded Confirmed spironolactone 25 mg tablet 25 mg PO DAILY 11/10/19 05/23/22 allopurinol 100 mg tablet 100 mg PO DAILY 01/30/22 05/23/22 levothyroxine 112 mcg tablet 88 mcg PO DAILY 05/22/22 05/23/22 (Unithroid) <SO Samuels Last Filed: 06/04/22 04:21> Allergies/Adverse Reactions: Allergies Allergy/AdvReac Type Severity Reaction Status Date / Time No Known Allergies Allergy Verified 06/04/22 07:43 <Shayy Quintana PA-C - Last Filed: 06/04/22 04:21> Review of Systems Review of Systems: CONSTITUTIONAL: Reports fatigue, malaise, chills. Denies fever. CARDIOVASCULAR: Denies chest pain. RESPIRATORY: Denies dyspnea. GASTROINTESTINAL: Reports nausea. Denies abdominal pain, vomiting, or diarrhea. GENITOURINARY: Reports dysuria. Denies hematuria. MUSCULOSKELETAL: Denies back pain. <Shayy Quintana PA-C - Last Filed: 06/04/22 04:21> All systems reviewed & are unremarkable except as noted in HPI and below <Shayy Quintana PA-C - Last Filed: 06/04/22 04:21> PMFSH Past Medical History Medical History: Medical History Anxiety BMI 37.0-37.9, adult BMI greater than 40 Chronic kidney disease CKD (chronic kidney disease) stage 3, GFR 30-59 ml/min Edema Hypothyroid Kidney stones JUANA (obstructive sleep apnea) Renal tubular acidosis Ureterolithiasis <Shayy Quintana PA-C - Last Filed: 06/04/22 04:21> Surgical History Surgical History: Surgical History S/P ureteral stent placement <Shayy Quintana PA-C - Last Filed: 06/04/22 04:21> Family History Family History: Family History Father Acute myocardial infarction Tobacco abuse Mother Cerebrovascular accident Sibling Thyroid activity decreased Other Family history of cardiovascular disease Hypertension <Shayy Quintana PA-C - Last Filed: 06/04/22 04:21> Social History Social History: Social History 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
[2022-06-04 01:42] LABS: Lactic Acid Reflex 0.7 mmol/L (0.7-2.0)
[2022-06-04] MEDS: ONDANSETRON INJ 4 MG/2 ML VIAL IV PUSH (01:54)
[2022-06-04] MEDS: SODIUM CHLORIDE 0.9% IV 1,000 ML 999 ML IV CONT (01:54)
[2022-06-04] MEDS: ONDANSETRON HCL ODT 4 MG TABLET PO (06:47)
== END 2022-06-04 08:00 | disposition home or self-care (01) ==
PROVIDERS: Physician Assistant; Emergency Provider Preventive Medicine Aerospace Medicine; PCP Family Medicine
DX: N39.0 Urinary tract infection, site not specified (principal); R11.0 Nausea; Z96.0 Presence of urogenital implants; Z87.442 Personal history of urinary calculi; N18.30 Chronic kidney disease, stage 3 unspecified; E03.9 Hypothyroidism, unspecified; G47.33 Obstructive sleep apnea (adult) (pediatric); F41.9 Anxiety disorder, unspecified; Z95.5 Presence of coronary angioplasty implant and graft
CPT/HCPCS: 36415; 74176; 80053; 81001; 83605; 85025; 87040; 87086; 96365; 96367; 96375; 99284; A9270; J0131; J0696; J2405; J7030

== ENCOUNTER 2022-06-05 18:27 | Inpatient (IN) | payer OTHER, SELFPAY ==
--- NOTE | ~2022-06-05 | XR_ITS ---
EXAMINATION: XR abdomen/kub 1V DATE: 06/13/2022 10:14 INDICATION: Nausea and vomiting. TECHNIQUE: A supine view of the abdomen on 2 radiographs was obtained. COMPARISON: Abdomen radiographs 07/12/2022, CT abdomen and pelvis 06/04/2022 FINDINGS: There are no dilated loops of bowel. There is bilateral medullary nephrocalcinosis. There a re multiple stones in each kidney measuring up to 14 mm on the left. IMPRESSION: 1. Bilateral kidney stones. 2. Bilateral medullary nephrocalcinosis. Reviewed, dictated and finalized at location A.
--- NOTE | ~2022-06-05 | XR_ITS ---
EXAMINATION: XR retrograde pyelo w/stent RT DATE: 06/10/2022 16:50 INDICATION: Right internal ureteral stent placement TECHNIQUE: Fluoroscopic images from a right stent placement are submitted for review. 36 seconds of f luoroscopy time. 6 fluoroscopic images. FINDINGS: There is a right double-J internal ureteral stent projecting in expected position, with proximal [place] loop at the level of the renal pelvis and distal loop in the pelvis within the bladder lumen. IMPRESSION: 1. Right internal ureteral stent placement. Please refer to real-time procedural findings for erik young. Reviewed, dictated and finalized at location A. IMPRESSION: 1. Right internal ureteral stent placement. Please refer to real-time procedu ral findings for details.
--- NOTE | ~2022-06-05 | XR_ITS ---
EXAMINATION: XR abdomen/kub 1V DATE: 06/12/2022 05:22 INDICATION: Kidney stones. TECHNIQUE: A supine view of the abdomen on 2 radiographs was obtained. COMPARISON: Abdomen radiographs 06/02/2022 FINDINGS: There are multiple stones in each kidney measuring up to 11 mm on the left. There is bilate ral medullary nephrocalcinosis. There is a right-sided internal ureteral stent with distal aspect bey ond the inferior margin of the radiograph and likely through the urethra. There is a 5 mm stone in pr oximal right ureter. IMPRESSION: 1. Right internal ureteral stent with distal aspect of the stent beyond the inferior margin of the ra diograph and likely through the urethra. 2. Stones in the kidneys and proximal right ureter. 3. Bilateral medullary nephrocalcinosis. Reviewed, dictated and finalized at location A. IMPRESSION: 1. Right internal ureteral stent with distal aspect of the stent beyond the inf erior margin of the radiograph and likely through the urethra. 2. Stones in the kidneys and proximal right ureter. 3. Bilateral medullary nephrocalcinosis.
[2022-06-05 18:30] VITALS: BP 150/77; PULSE 105; RESP 20; TEMP 37.6; O2SAT 100
[2022-06-05 22:07] VITALS: BP 151/75; PULSE 104; RESP 20; TEMP 38.1; O2SAT 100
[2022-06-05] MEDS: ONDANSETRON INJ 4 MG/2 ML VIAL IV PUSH (23:02)
[2022-06-05 23:03] LABS: Basophils Absolute Auto 0.1 K/mm3 (0.0-0.1); Basophils Percent Auto 0.5 % (0.2-1.2); Eosinophils Absolute Auto 0.2 K/mm3 (0-0.3); Eosinophils Percent Auto 1.7 % (0-4.4); Hematocrit 44.4 % (37.0-47.0); Hemoglobin 14.6 g/dL (12.0-15.0); Immature Granulocyte Percent A 0.8 % (0-0.5); Lymphocytes Absolute Auto 0.52 K/mm3 (0.9-3.2); Lymphocytes Percent Auto 3.9 % (18.3-44.2); Mean Corpuscular HGB Conc 32.9 g/dl (32-36); Mean Corpuscular Hemoglobin 29.7 pg (26-34); Mean Corpuscular Volume 90.2 fl (80-100); Mean Platelet Volume 9.6 fl (7.4-10.4); Monocytes Absolute Auto 1.9 K/mm3 (0.1-0.6); Monocytes Percent Auto 13.9 % (2.6-8.5); Neutrophils Absolute Auto 10.5 K/mm3 (1.3-6.7); Neutrophils Percent Auto 79.2 % (45.5-73.1); Platelet Count Result 293 k/mm3 (150-375); Red Blood Count 4.92 M/mm3 (4.2-5.4); Red Cell Distribution Width 15.3 % (11.5-14.5); White Blood Count 13.3 K/mm3 (4.5-10.0)
[2022-06-05] MEDS: SODIUM CHLORIDE 0.9% IV 1,000 ML 999 ML IV CONT (23:03)
[2022-06-05 23:11] LABS: Appearance Urine Clear (Clear); Bilirubin Urine Negative (Negative); Blood Urine 3+ (Negative); Color Urine Yellow (Yellow); Glucose Urine UA Negative (Negative); Ketones Urine Negative (Negative); Leukocyte Esterase Ur 3+ LEU/UL (Negative); Nitrate Urine Negative (Negative); Protein Urine 1+ mg/dL (Negative); Specific Grav Ur 1.015 (1.001-1.035); Urobilinogen Urine 0.2 mg/dL (<2.0)
[2022-06-05 23:13] LABS: Lactic Acid Reflex 1.1 mmol/L (0.7-2.0)
[2022-06-05 23:14] LABS: Alanine Aminotransferase 27 U/L (6-35); Alkaline Phosphatase 63 U/L (38-126); Anion Gap 16 mmol/L (8-16); Aspartate Amino Transferase 26 U/L (14-36); Bilirubin,Total 0.3 mg/dL (0.2-1.3); Blood Urea Nitrogen 12 mg/dL (7-17); Calcium 9.2 mg/dL (8.4-10.2); Carbon Dioxide 18 mmol/L (22-30); Chloride 107 mmol/L (98-107); Estimated CRCL calculation 44 ml/min; Estimated Glomerular Filt Rate 33; Glucose 108 mg/dL (65-110); Potassium 3.5 mmol/L (3.4-5.0); Sodium 141 mmol/L (137-145)
--- NOTE | 2022-06-05 23:25 | ED.GENADULT ---
HPI - General Adult General Chief complaint: Fever Stated complaint: FEVER,URINARY STENTS/STONES Time Seen by Provider: 06/05/22 22:15 History of Present Illness HPI narrative: Patient is a 56-year-old female who presents the emergency department with chief complaint of fever and generalized malaise. Patient reports that she has history of kidney stones and had bilateral stents placed patient states that she was seen in the emergency department yesterday had a CT scan did not show any acute abnormalities but did found a urinary tract infection the patient was started on Cipro and was discharged home the patient reports that she is continue to have body aches fevers and generalized malaise. Review of the patient's cultures she has history of Enterococcus that was resistant to fluoroquinolones. Related Data Home Medications Medication Instructions Recorded Confirmed spironolactone 25 mg tablet 25 mg PO DAILY 11/10/19 05/23/22 allopurinol 100 mg tablet 100 mg PO DAILY 01/30/22 05/23/22 levothyroxine 112 mcg tablet 88 mcg PO DAILY 05/22/22 05/23/22 (Unithroid) Allergies Allergy/AdvReac Type Severity Reaction Status Date / Time No Known Allergies Allergy Verified 06/04/22 07:43 Review of Systems Review of Systems: A 10 system review of systems was completed on the patient and is negative except for what is stated in the HPI. Nursing and ancillary documentation was reviewed. [facility] Past Medical History Medical History Anxiety BMI 37.0-37.9, adult BMI greater than 40 Chronic kidney disease CKD (chronic kidney disease) stage 3, GFR 30-59 ml/min Edema Hypothyroid Kidney stones JUANA (obstructive sleep apnea) Renal tubular acidosis Ureterolithiasis Surgical History Surgical History S/P ureteral stent placement Family History Family History Father Acute myocardial infarction Tobacco abuse Mother Cerebrovascular accident Sibling Thyroid activity decreased Other Family history of cardiovascular disease Hypertension Social History Social History 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 HEAD: Normocephalic, atraumatic. EYES: PERRLA and EOMI. ENT: Nares clear, no rhinorrhea or epistaxis. Mucous membranes moist. NECK: Supple. CHEST: Clear to auscultation. No respiratory distress. HEART: Regular rate and rhythm. No murmur heard. Normal peripheral pulses. ABDOMEN: Soft, nontender, nondistended, normal active bowel sounds. EXTREMITIES: Normal range of motion. No edema. SKIN: Warm, dry, no rash. NEURO: No focal deficits. Alert and oriented x3. PSYCH: Normal mood and affect. Course Vital Signs Vital signs: Vital Signs Temperature 37.6 C H 06/05/22 18:30 Pulse Rate 105 H 06/05/22 18:30 Respiratory Rate 20 06/05/22 18:30 Blood Pressure 150/77 H 06/05/22 18:30 Pulse Oximetry 100 06/05/22 18:30 Oxygen Delivery Room Air 06/05/22 18:30 Temperature 37.6 C 06/06/22 00:33 Pulse Rate 82 06/06/22 00:33 Respiratory Rate 15 06/06/22 00:33 Blood Pressure 141/67 H 06/06/22 00:33 Pulse Oximetry 98 06/06/22 00:33 Oxygen Delivery Room Air 06/05/22 18:30 Medical Decision Making Vital Signs Vital Signs: Vital Signs Temperature 37.6 C H 06/05/22 18:30 Pulse Rate 105 H 06/05/22 18:30 Respiratory Rate 20 06/05/22 18:30 Blood Pressure 150/77 H
[2022-06-05 23:52] LABS: Procalcitonin 0.1 ng/mL
[2022-06-06] VITALS (9 sets, daily range): BP systolic 120–141; BP diastolic 62–80; PULSE 72–95; RESP 14–18; TEMP 36.7–38.9; O2SAT 98–100; BMI 39.2
[2022-06-06 00:03] LABS: Add Urine Microscopic? YES; RBC Urine 0-2 /hpf (0-2)
--- NOTE | 2022-06-06 00:24 | ECG_ITS ---
Measurements Intervals [place] Rate: 86 P: 49 MN: 175 QRS: 82 QRSD: 80 T: 30 QT: 352 QTc: 423 Interpretive Statements SINUS RHYTHM LOW QRS VOLTAGE IN PRECORDIAL LEADS MINIMAL Q WAVES- INFERIOR LEADS BORDERLINE T WAVE ABNORMALITY- ANTERIOR LEADS BORDERLINE ECG COMPARED TO ECG 04/25/2022 21:20:47 NO SIGNIFICANT CHANGES Electronically Signed On 06-06-2022 8:24:48 CDT by Diomedes Guerrero D.O.
[2022-06-06] MEDS: SODIUM CHLORIDE 0.9% IV 1,000 ML 125 ML IV CONT ×3 (03:00→22:51)
--- NOTE | 2022-06-06 03:45 | PM.IMHP ---
H&P: HPI History of Present Illness Date/Time: 06/06/22 03:45 Chief Complaint: Fever and chills, recent bilateral kidney stents and diagnosis of UTI Narrative: 56-year-old female with a past medical history of renal tubular acidosis with chronic kidney disease stage IIIB and nephrolithiasis with recent bilateral ureteral stent placement who presented to the ER with fever and chills. The patient reports that she has not felt well for the last 6 weeks. She reports that in January her TSH was really low and her doctor stopped her thyroid medication. In February her TSH was up to 52 and she was started on [place] Thyroid and April 22 was up to greater than 100. She was admitted to the hospital on April 26 due to persistent hypothyroidism and was restarted on levothyroxine. She was able a follow-up with Endocrinology last month and her levothyroxine was switched to Unithyroid. Since that time she reports she generally feels dizzy and nauseated. She initially thought her symptoms were due to her thyroid medications that she may have myxedema coma. She had developed weight gain, cold chills and fatigue throughout the whole process. She has also been depressed and tearful. She thought that restarting her medications would help with her symptoms. However, symptoms have persisted. 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 She was started on unithyroid. Just prior to following up with the cafe or restaurant manager patient was diagnosed with the UTI by primary care physician was placed on Macrobid. She came back to the ER 2 days later and her antibiotics was changed to ampicillin which her enterococcal UTI was sensitive. She was still having symptoms of a UTI and went to the ER CT scan May 17 that demonstrated a 12 mm stone in the right renal pelvis causing mild hydronephrosis and 2 adjacent 2 mm stones in the distal left ureter she had a repeat CT scan ordered by Urology 05/22/2022 that demonstrated similar findings but with the stone on the right now down at the ureteropelvic junction. On 05/23/2022 she underwent cystoscopy with ureteral stent placement and laser lithotripsy to the left stent. She reports that for the last 6 weeks or more she has been having nausea and gagging when she tries to eat. She feels like when she comes to the ER gets fluids she is well hydrated but since she goes home she is dehydrated again within 1 day. She has continued to take her spironolactone at home for her renal tubular acidosis but has cut the dose back to 25 mg a day. Despite doing this she still feels dehydrated. She denies any changes in her urinary frequency or urgency. Her urine has been darker than usual. She has not noticed any gross hematuria. Then for the last 3 4 weeks she has had been having intermittent chills but was not having a true fever until the . She had a temperature of 101.1? at home. She reports that she has been drinking so much water that even that makes her nauseated. She has noticed some looser stools on the since she has been on Cipro for a couple of days since her recent ER visit. It is not unusual for diet looser stools with antibiotic therapy. Since denies any abdominal pain. She takes a quarter of a tbsp of sodium bicarb at home as part of her treatment for her renal tubular acidosis. She reports that she has felt so bad that she has been on leave of absence from her job since March. Review of Systems Review of Systems: 12 systems were reviewed with pertinent positives and negatives per HPI. Except as documented in the HPI, all other systems were reviewed and are negative. [facility] Past Medical History Medical History (Updated 06/06/22 @ 07:25 by Xiomara Cross, ) Anxiety Chronic kidney disease CKD (chronic kidney disease) stage 3, GFR 30-59 ml/min Edema Hypothyroid Kidney stones Nephrocalcinosis JUANA (obstructive sleep apnea) Patient denies being tested for sleep apnea Renal tubular acidosis Ureterolithiasi
[2022-06-06 07:46] LABS: Hematocrit 40.9 % (37.0-47.0); Hemoglobin 13.2 g/dL (12.0-15.0); Mean Corpuscular HGB Conc 32.3 g/dl (32-36); Mean Corpuscular Hemoglobin 29.5 pg (26-34); Mean Corpuscular Volume 91.3 fl (80-100); Mean Platelet Volume 9.8 fl (7.4-10.4); Platelet Count Result 265 k/mm3 (150-375); Red Blood Count 4.48 M/mm3 (4.2-5.4); Red Cell Distribution Width 15.4 % (11.5-14.5); White Blood Count 8.4 K/mm3 (4.5-10.0)
[2022-06-06 08:25] LABS: Magnesium 2.3 mg/dL (1.6-2.3); Phosphorus 3.2 mg/dL (2.5-4.5)
[2022-06-06] MEDS: ENOXAPARIN 40 MG/0.4 ML SYRINGE SUB-Q (08:51)
[2022-06-06] MEDS: SODIUM BICARBONATE TAB 325 MG TABLET PO ×2 (08:51→16:11)
[2022-06-06] MEDS: ONDANSETRON INJ 4 MG/2 ML VIAL IV PUSH (08:57)
--- NOTE | 2022-06-06 09:45 | PM.IMPN ---
Progress Note: A&P Assessment and Plan (1) UTI (urinary tract infection): Code(s): N39.0 - Urinary tract infection, site not specified Status: Acute Assessment and Plan: Patient has complicated UTI with presence of bilateral ureteral stents. Urology has been consulted. empiric antibiotic therapy with Zosyn and vancomycin, changed to vanc and cefepime since she already has CKD Urine cultures from 06/04/22 shows contamination, repeat culture pending blood cultures are pending Trend urine output WBC normal at 8.4 Trend labs Adjust therapy as indicated by sensitivities (2) CKD (chronic kidney disease) stage 3, GFR 30-59 ml/min: Code(s): N18.30 - Chronic kidney disease, stage 3 unspecified Status: Acute Assessment and Plan: Creatinine is stable at 1.6 Baseline appears to be 1.5 Bicarb is lower than baseline at 18 Start sodium bicarb tablets continue IV fluid hydration for now Avoid nephrotoxic medications trend labs adjust therapy accordingly (3) Renal tubular acidosis: Code(s): N25.89 - Other disorders resulting from impaired renal tubular function Status: Chronic Assessment and Plan: Start sodium bicarb tablets spironolactone is on hold Trend labs Labs in the am (4) Hypothyroid: Qualifiers: Hypothyroidism type: unspecified Qualified Code(s): E03.9 - Hypothyroidism, unspecified Code(s): E03.9 - Hypothyroidism, unspecified Status: Chronic Assessment and Plan: TSH 26.500, T3 1.27, T4 1.16 Continue home thyroid supplements (5) JUANA (obstructive sleep apnea): Code(s): G47.33 - Obstructive sleep apnea (adult) (pediatric) Status: Acute Assessment and Plan: Official sleep study has not been obtained benefit from outpatient polysomnogram on discharge (6) Renal calculi: Code(s): N20.0 - Calculus of kidney Status: Acute Assessment and Plan: CT of the abd/pel indicated bilateral stone involvement Stent placed by urology on 05/23/22 Trend urine output Antibiotic therapy for possible UTI Urology consulted (7) Migraine: Code(s): G43.909 - Migraine, unspecified, not intractable, without status migrainosus Status: Acute Assessment and Plan: Seems to be related to health conditions, photophobia Migraine cocktail given Continue to trend pain Tylenol and morphine on board Time Spent With Patient Time with patient: Greater than 35 minutes Subjective Date/time seen: 06/06/22944 Interval history: 06/07/22944 Patient seems to be doing okay. She is a little emotional. She stated that she has been now however nothing seems to be getting better. She also states she is having a migraine and she is nauseated and can not keep food down. She also stated that she has not been sleeping as well due to the pain and current condition. She currently denies any chest pain, shortness of breath. She does state that she was pretty dizzy and is very weak and fatigued this time. Her migraine seems to be affected by light. Gave patient a migraine cocktail to promote sleep and hopefully resolve the nausea issues. 06/06/22? 03:45 56-year-old female with a past medical history of renal tubular acidosis with chronic kidney disease stage IIIB and nephrolithiasis with recent bilateral ureteral stent placement who presented to the ER with fever and chills.? The patient reports that she has not felt well for the last 6 weeks.? She reports that in January her TSH was really low and her doctor stopped her thyroid medication.? In February her TSH was up to 52 and she was started on [place] Thyroid and April 22 was up to greater than 100.? She was admitted to the hospital on April 26 due to persistent hypothyroidism and was restarted on levothyroxine.? She was able a follow-up with Endocrinology last month a
--- NOTE | 2022-06-06 09:45 | P.PNIM_ITS ---
Progress Note: A&P Assessment and Plan (1) UTI (urinary tract infection): Code(s): N39.0 - Urinary tract infection, site not specified Status: Acute Assessment and Plan: * Patient has complicated UTI with presence of bilateral ureteral stents. * Urology has been consulted. * empiric antibiotic therapy with Zosyn and vancomycin, changed to vanc and cefepime since she already has CKD * Urine cultures from 06/04/22 shows contamination, repeat culture pending * blood cultures are pending * Trend urine output * WBC normal at 8.4 * Trend labs * Adjust therapy as indicated by sensitivities (2) CKD (chronic kidney disease) stage 3, GFR 30-59 ml/min: Code(s): N18.30 - Chronic kidney disease, stage 3 unspecified Status: Acute Assessment and Plan: * Creatinine is stable at 1.6 * Baseline appears to be 1.5 * Bicarb is lower than baseline at 18 * Start sodium bicarb tablets * continue IV fluid hydration for now * Avoid nephrotoxic medications * trend labs * adjust therapy accordingly (3) Renal tubular acidosis: Code(s): N25.89 - Other disorders resulting from impaired renal tubular function Status: Chronic Assessment and Plan: * Start sodium bicarb tablets * spironolactone is on hold * Trend labs * Labs in the am (4) Hypothyroid: Qualifiers: Hypothyroidism type: unspecified Qualified Code(s): E03.9 - Hypothyroidism, unspecified Code(s): E03.9 - Hypothyroidism, unspecified Status: Chronic Assessment and Plan: * TSH 26.500, T3 1.27, T4 1.16 * Continue home thyroid supplements (5) JUANA (obstructive sleep apnea): Code(s): G47.33 - Obstructive sleep apnea (adult) (pediatric) Status: Acute Assessment and Plan: * Official sleep study has not been obtained * benefit from outpatient polysomnogram on discharge (6) Renal calculi: Code(s): N20.0 - Calculus of kidney Status: Acute Assessment and Plan: * CT of the abd/pel indicated bilateral stone involvement * Stent placed by urology on 05/23/22 * Trend urine output * Antibiotic therapy for possible UTI * Urology consulted (7) Migraine: Code(s): G43.909 - Migraine, unspecified, not intractable, without status migrainosus Status: Acute Assessment and Plan: * Seems to be related to health conditions, photophobia * Migraine cocktail given * Continue to trend pain * Tylenol and morphine on board Time Spent With Patient Time with patient: Greater than 35 minutes Subjective Date/time seen: 06/06/22944 Interval history: 06/07/22944 Patient seems to be doing okay. She is a little emotional. She stated that she has been now however nothing seems to be getting better. She also states she is having a migraine and she is nauseated and can not keep food down. She also stated that she has not been sleeping as well due to the pain and current condition. She currently denies any chest pain, shortness of breath. She does state that she was pretty dizzy and is very weak and fatigued this time. Her migraine seems to be affected by light. Gave patient a migraine cocktail to promote sleep and hopefully resolve the nausea issues. 06/06/22? 03:45 56-year-old female with a past medical history of renal tubular acidosis with chronic kidney disease
[2022-06-06 09:46] LABS: Alanine Aminotransferase 25 U/L (6-35); Albumin Level 3.8 g/dL (3.5-5.1); Alkaline Phosphatase 55 U/L (38-126); Anion Gap 11 mmol/L (8-16); Aspartate Amino Transferase 25 U/L (14-36); Bilirubin,Total 0.4 mg/dL (0.2-1.3); Blood Urea Nitrogen 13 mg/dL (7-17); Calcium 8.6 mg/dL (8.4-10.2); Carbon Dioxide 18 mmol/L (22-30); Chloride 113 mmol/L (98-107); Estimated CRCL calculation 41 ml/min; Estimated Glomerular Filt Rate 31; Glucose 91 mg/dL (65-110); Sodium 142 mmol/L (137-145)
[2022-06-06] MEDS: METOCLOPRAMIDE HCL INJ 10 MG/2 ML VIAL IV PUSH (10:54)
[2022-06-06] MEDS: KETOROLAC 15 MG/ML VIAL (*BKC) IV PUSH (10:54)
[2022-06-06] MEDS: diphenhydrAMINE HCl INJ 50 MG/ML VIAL IV PUSH (10:54)
[2022-06-06] MEDS: SODIUM CHLORIDE 0.9% IV 1,000 ML 999 ML IV CONT (10:55)
[2022-06-06 11:33] LABS: Free T4 Free Thyroxine Reflex 1.16 ng/dL (0.78-2.19)
[2022-06-06 13:00] LABS: Total Triiodothyronine (T3) 1.27 NG/ML (0.97-1.69)
[2022-06-06] MEDS: SACCHAROMYCES BOULARDII 250 MG CAPSULE PO (16:11)
--- NOTE | 2022-06-06 21:32 | PHAR ---
PHARMACY VERIFIED HOME MED: * USE FROM HOME * LEVOTHYROXINE SODIUM 88 MCG (TIROSINT) TABLET - TAKE 1 TABLET BY MOUTH DAILY AT 06:30 take with water on an empty stomach; take 4 hours apart from antacids, iron, and calcium supplements
[2022-06-07] MEDS: BENZOCAINE/MENTHOL (*BKC) 18 EA LOZENGE 1 LOZENGE PO (00:59)
[2022-06-07 06:00] VITALS: BP 126/72; PULSE 83; RESP 17; TEMP 38.3; O2SAT 99
[2022-06-07 06:41] LABS: Basophils Percent Auto 0.4 % (0.2-1.2); Eosinophils Percent Auto 0.3 % (0-4.4); Hematocrit 41.2 % (37.0-47.0); Hemoglobin 13.1 g/dL (12.0-15.0); Immature Granulocyte Absolute 0.07 K/mm3 (0.00-0.031); Immature Granulocyte Percent A 0.7 % (0-0.5); Lymphocytes Absolute Auto 1.84 K/mm3 (0.9-3.2); Lymphocytes Percent Auto 18.8 % (18.3-44.2); Mean Corpuscular HGB Conc 31.8 g/dl (32-36); Mean Corpuscular Hemoglobin 29.2 pg (26-34); Monocytes Absolute Auto 1.8 K/mm3 (0.1-0.6); Monocytes Percent Auto 17.9 % (2.6-8.5); Neutrophils Percent Auto 61.9 % (45.5-73.1); Platelet Count Result 236 k/mm3 (150-375); Red Blood Count 4.48 M/mm3 (4.2-5.4); Red Cell Distribution Width 15.9 % (11.5-14.5); White Blood Count 9.8 K/mm3 (4.5-10.0)
[2022-06-07 06:56] LABS: Alanine Aminotransferase 25 U/L (6-35); Albumin Level 3.8 g/dL (3.5-5.1); Alkaline Phosphatase 54 U/L (38-126); Anion Gap 8 mmol/L (8-16); Aspartate Amino Transferase 25 U/L (14-36); Bilirubin,Total 0.2 mg/dL (0.2-1.3); Blood Urea Nitrogen 12 mg/dL (7-17); Calcium 8.3 mg/dL (8.4-10.2); Carbon Dioxide 18 mmol/L (22-30); Chloride 115 mmol/L (98-107); Estimated CRCL calculation 39 ml/min; Estimated Glomerular Filt Rate 29; Glucose 97 mg/dL (65-110); Magnesium 2.1 mg/dL (1.6-2.3); Potassium 3.8 mmol/L (3.4-5.0); Sodium 141 mmol/L (137-145)
[2022-06-07] MEDS: ACETAMINOPHEN 500 MG TABLET 1000 MG PO (07:16)
[2022-06-07 08:09] VITALS: TEMP 37.3
[2022-06-07] MEDS: SODIUM BICARBONATE TAB 325 MG TABLET PO ×2 (08:13→17:00)
[2022-06-07] MEDS: SACCHAROMYCES BOULARDII 250 MG CAPSULE PO ×2 (08:13→17:00)
[2022-06-07] MEDS: ENOXAPARIN 40 MG/0.4 ML SYRINGE SUB-Q (08:13)
[2022-06-07] MEDS: FLUTICASONE PROPIONATE 0.05% NA SPR 16 GM BTL (*BKC) 2 SPRAY NASAL (08:14)
[2022-06-07] MEDS: SODIUM CHLORIDE 0.9% IV 1,000 ML 1 ML IV CONT (08:14)
[2022-06-07 09:59] VITALS: O2SAT 97
--- NOTE | 2022-06-07 10:15 | PM.IMPN ---
Progress Note: A&P Assessment and Plan (1) UTI (urinary tract infection): Code(s): N39.0 - Urinary tract infection, site not specified Status: Acute Assessment and Plan: Complicated UTI with presence of bilateral ureteral stents.? Urology has been consulted.? Continue vanc and cefepime since she already has CKD Urine cultures from 06/05/22 grew enterococcus species Will await sensitivities blood cultures NGTD Trend urine output WBC normal at 9.8 Trend labs Adjust therapy as indicated by sensitivities (2) CKD (chronic kidney disease) stage 3, GFR 30-59 ml/min: Code(s): N18.30 - Chronic kidney disease, stage 3 unspecified Status: Acute Assessment and Plan: Creatinine is continuing to increase currently at 1.80 Baseline appears to be 1.5 Bicarb is lower than baseline at 18 Continue sodium bicarb tablets Stop IV hydration at this point Urine studies Na 43, Urea 83, Cr 30.3 FENa score is 1.8% looking like an ATN Avoid nephrotoxic medications trend labs adjust therapy accordingly Could be worsening due to UTI Nephrology consulted thank you for your help (3) Renal tubular acidosis: Code(s): N25.89 - Other disorders resulting from impaired renal tubular function Status: Chronic Assessment and Plan: Start sodium bicarb tablets spironolactone is on hold Trend labs Labs in the am Could be the reason for the worsening renal function (4) Hypothyroid: Qualifiers: Hypothyroidism type: unspecified Qualified Code(s): E03.9 - Hypothyroidism, unspecified Code(s): E03.9 - Hypothyroidism, unspecified Status: Chronic Assessment and Plan: TSH 26.500, T3 1.27, T4 1.16 Continue home thyroid supplements (5) JUANA (obstructive sleep apnea): Code(s): G47.33 - Obstructive sleep apnea (adult) (pediatric) Status: Acute Assessment and Plan: Official sleep study has not been obtained benefit from outpatient polysomnogram on discharge (6) Renal calculi: Code(s): N20.0 - Calculus of kidney Status: Acute Assessment and Plan: CT of the abd/pel indicated bilateral stone involvement Stent placed by urology on 05/23/22 Trend urine output Antibiotic therapy for possible UTI Urology consulted (7) Migraine: Code(s): G43.909 - Migraine, unspecified, not intractable, without status migrainosus Status: Acute Assessment and Plan: Resolved at this time Seems to be related to health conditions, photophobia Migraine cocktail given Continue to trend pain Tylenol and morphine on board Time Spent With Patient Time with patient: Greater than 35 minutes Subjective Date/time seen: 06/07/22 10:15 Interval history: 06/08/22 1015 Patient is doing better. She stated that her migraine is better. She denies any chest pain, shortness of breath. She did state that her nausea is better as well. She was able to get some sleep. She also has a notable cough this morning, and stated that it started yesterday afternoon. He also stated that her throat has been hurting. She has been able to cough up some phlegm but she stated that it is nothing credible at this time. Talked to her about consult nephrology since her renal function is worsening. 06/07/22? 0945 Patient seems to be doing okay.? She is a little emotional.? She stated that she has been now however nothing seems to be getting better.? She also states she is having a migraine and she is nauseated and can not keep food down.? She also stated that she has not been sleeping as well due to the pain and current condition.? She currently denies any chest pain, shortness of breath.? She does state that she was pretty dizzy and is very weak and fatigued this time.? Her migraine seems to be affected by light.? Gave patient a migraine cocktail to promote sleep and hopefully r
--- NOTE | 2022-06-07 10:15 | P.PNIM_ITS ---
Progress Note: A&P Assessment and Plan (1) UTI (urinary tract infection): Code(s): N39.0 - Urinary tract infection, site not specified Status: Acute Assessment and Plan: * Complicated UTI with presence of bilateral ureteral stents.? * Urology has been consulted.? * Continue vanc and cefepime since she already has CKD * Urine cultures from 06/05/22 grew enterococcus species * Will await sensitivities * blood cultures NGTD * Trend urine output * WBC normal at 9.8 * Trend labs * Adjust therapy as indicated by sensitivities (2) CKD (chronic kidney disease) stage 3, GFR 30-59 ml/min: Code(s): N18.30 - Chronic kidney disease, stage 3 unspecified Status: Acute Assessment and Plan: * Creatinine is continuing to increase currently at 1.80 * Baseline appears to be 1.5 * Bicarb is lower than baseline at 18 * Continue sodium bicarb tablets * Stop IV hydration at this point * Urine studies Na 43, Urea 83, Cr 30.3 * FENa score is 1.8% looking like an ATN * Avoid nephrotoxic medications * trend labs * adjust therapy accordingly * Could be worsening due to UTI * Nephrology consulted thank you for your help (3) Renal tubular acidosis: Code(s): N25.89 - Other disorders resulting from impaired renal tubular function Status: Chronic Assessment and Plan: * Start sodium bicarb tablets * spironolactone is on hold * Trend labs * Labs in the am * Could be the reason for the worsening renal function (4) Hypothyroid: Qualifiers: Hypothyroidism type: unspecified Qualified Code(s): E03.9 - Hypothyroidism, unspecified Code(s): E03.9 - Hypothyroidism, unspecified Status: Chronic Assessment and Plan: * TSH 26.500, T3 1.27, T4 1.16 * Continue home thyroid supplements (5) JUANA (obstructive sleep apnea): Code(s): G47.33 - Obstructive sleep apnea (adult) (pediatric) Status: Acute Assessment and Plan: * Official sleep study has not been obtained * benefit from outpatient polysomnogram on discharge (6) Renal calculi: Code(s): N20.0 - Calculus of kidney Status: Acute Assessment and Plan: * CT of the abd/pel indicated bilateral stone involvement * Stent placed by urology on 05/23/22 * Trend urine output * Antibiotic therapy for possible UTI * Urology consulted (7) Migraine: Code(s): G43.909 - Migraine, unspecified, not intractable, without status migrainosus Status: Acute Assessment and Plan: * Resolved at this time * Seems to be related to health conditions, photophobia * Migraine cocktail given * Continue to trend pain * Tylenol and morphine on board Time Spent With Patient Time with patient: Greater than 35 minutes Subjective Date/time seen: 06/07/22 10:15 Interval history: 06/08/22 1015 Patient is doing better. She stated that her migraine is better. She denies any chest pain, shortness of breath. She did state that her nausea is better as well. She was able to get some sleep. She also has a notable cough this morning, and stated that it started yesterday afternoon. He also stated that her throat has been hurting. She has been able to cough up some phlegm but she stated that it is nothing credible at this time. Talked to her about consult nephrology since her renal function is worsening. 06/07/22? 0945 Patient seems
[2022-06-07 12:50] LABS: Creatinine Urine 30.3 mg/dL; Urea Random Urine 83 MG/DL
[2022-06-07 12:52] LABS: Sodium Urine Random 43 meq/L
--- NOTE | 2022-06-07 13:30 | PM.CNNEP ---
Assessment and Plan Assessment and plan (1) LAURA (acute kidney injury): Code(s): N17.9 - Acute kidney failure, unspecified Status: Acute Assessment and Plan: creatinine up a bit from baseline presumably due to UTI(?) +/- volume depletion kidney stones could be playing a role (but creatinine was stable before admission) evaluation to date: CT of abd/pelvis with no obstruction (stone fragments and stents present) UA suggestive of UTI urine electrolytes are not prerenal s/p trial of IVF hydration follow trend of repeat labs and UOP with current interventions (2) Stage 3b chronic kidney disease: Code(s): N18.32 - Chronic kidney disease, stage 3b Status: Chronic Assessment and Plan: baseline creatinine runs ~ 1.4 - 1.6mg/dl in the last year secondary to medullary nephrocalcinosis and recurrent kidney stones (3) UTI (urinary tract infection): Code(s): N39.0 - Urinary tract infection, site not specified Status: Acute Assessment and Plan: admission UA seems suggestive follow-up on urine culture on broad spectrum antibiotics (4) Renal tubular acidosis: Code(s): N25.89 - Other disorders resulting from impaired renal tubular function Status: Chronic Assessment and Plan: chronic issue usually takes baking soda for treatment on sodium bicarbonate (5) Nephrolithiasis: Code(s): N20.0 - Calculus of kidney Status: Acute Assessment and Plan: as noted by history and intervention earlier this month CT scan of abd/pelvis noted Urology consulted Will continue to follow. History of Present Illness Reason for Consult Consult date: 06/07/22 Reason for consult: acute renal failure (on chronic kidney disease) Chief Complaint Chief complaint: UTI, ureteral stents History of Present Illness Narrative: The patient is a 56-year-old female with a past medical history as outlined below who presented to [facility] Emergency room for further evaluation of her current fevers and chills. The patient states that she has not felt well for the last month to month and a half an general she reports that in January that she had issues with her thyroid function the necessitated discontinuation of her thyroid medication. He has had multiple medication changes and adjustments for this issue and this has resulted in problems with dizziness and nausea other associated symptoms include weight gain, chills, and fatigue. This has been further complicated by the fact that she was recently diagnosed with a urinary tract infection by her primary care physician and started on oral antibiotic therapy. She had a recent ER visit as she still did not feel well unit after this change in therapy and her antibiotics were adjusted by the ER. She continued to feel bad with another ER visit that included a CT scan of her abdomen and pelvis which demonstrated 12 mm stone in the right renal pelvis causing mild hydronephrosis. She had a repeat CT scan done by her urologist which demonstrated that the stone was now in the utero pelvic junction and she subsequently underwent a cystoscopy with ureteral stent placement as well as laser lithotripsy with left stent placement in the hopes of resolving that issue. However, ever since that procedure, she has had had issues with nausea and gagging with any attempted oral intake with resulting feelings that she is dehydrated. She continued to have urinary symptoms and eventually noted fevers as high as 101.1 degrees at home and despite her best efforts to try to stay hydrated, she continued to have issues with nausea. Eventually, given all these issues and problems as mentioned above, she presented to the ER for further evaluation. Workup and evaluation emergency room demonstrated the patient to be hemodynamically stable but in clear distress with regard to the above issues and problems that she has had in the last sev
[2022-06-07] MEDS: ONDANSETRON INJ 4 MG/2 ML VIAL IV PUSH (13:51)
[2022-06-07 14:00] VITALS: BP 118/70; PULSE 81; RESP 20; TEMP 37.3; O2SAT 98
[2022-06-07 22:00] VITALS: BP 122/67; PULSE 81; RESP 18; TEMP 37.2; O2SAT 98
[2022-06-08] MEDS: ACETAMINOPHEN 500 MG TABLET 1000 MG PO (01:17)
[2022-06-08 06:00] VITALS: BP 104/70; PULSE 66; RESP 17; TEMP 36.9; O2SAT 100
[2022-06-08 06:33] LABS: Basophils Percent Auto 0.5 % (0.2-1.2); Eosinophils Absolute Auto 0.1 K/mm3 (0-0.3); Eosinophils Percent Auto 1.6 % (0-4.4); Hematocrit 43.9 % (37.0-47.0); Hemoglobin 13.7 g/dL (12.0-15.0); Immature Granulocyte Absolute 0.03 K/mm3 (0.00-0.031); Immature Granulocyte Percent A 0.5 % (0-0.5); Lymphocytes Absolute Auto 2.08 K/mm3 (0.9-3.2); Mean Corpuscular HGB Conc 31.2 g/dl (32-36); Mean Corpuscular Hemoglobin 28.7 pg (26-34); Mean Platelet Volume 10.4 fl (7.4-10.4); Monocytes Absolute Auto 1.1 K/mm3 (0.1-0.6); Monocytes Percent Auto 18.3 % (2.6-8.5); Neutrophils Absolute Auto 2.5 K/mm3 (1.3-6.7); Neutrophils Percent Auto 43.1 % (45.5-73.1); Platelet Count Result 241 k/mm3 (150-375); Red Blood Count 4.77 M/mm3 (4.2-5.4); Red Cell Distribution Width 15.8 % (11.5-14.5); White Blood Count 5.8 K/mm3 (4.5-10.0)
[2022-06-08 06:48] LABS: Alanine Aminotransferase 24 U/L (6-35); Alkaline Phosphatase 50 U/L (38-126); Anion Gap 14 mmol/L (8-16); Aspartate Amino Transferase 29 U/L (14-36); Bilirubin,Total 0.3 mg/dL (0.2-1.3); Blood Urea Nitrogen 13 mg/dL (7-17); Calcium 8.5 mg/dL (8.4-10.2); Carbon Dioxide 20 mmol/L (22-30); Chloride 110 mmol/L (98-107); Estimated CRCL calculation 39 ml/min; Estimated Glomerular Filt Rate 29; Glucose 115 mg/dL (65-110); Magnesium 2.2 mg/dL (1.6-2.3); Potassium 3.5 mmol/L (3.4-5.0); Sodium 144 mmol/L (137-145)
[2022-06-08] MEDS: SODIUM BICARBONATE TAB 325 MG TABLET PO ×2 (08:31→16:48)
[2022-06-08] MEDS: FLUTICASONE PROPIONATE 0.05% NA SPR 16 GM BTL (*BKC) 2 SPRAY NASAL (08:31)
[2022-06-08] MEDS: SACCHAROMYCES BOULARDII 250 MG CAPSULE PO ×2 (08:31→16:48)
[2022-06-08] MEDS: ENOXAPARIN 40 MG/0.4 ML SYRINGE SUB-Q (08:32)
[2022-06-08] MEDS: ONDANSETRON INJ 4 MG/2 ML VIAL IV PUSH (08:48)
--- NOTE | 2022-06-08 11:00 | P.PNIM_ITS ---
Progress Note: A&P Assessment and Plan (1) UTI (urinary tract infection): Code(s): N39.0 - Urinary tract infection, site not specified Status: Acute Assessment and Plan: * Complicated UTI with presence of bilateral ureteral stents.? * Urology has been consulted.? * Continue vanc and cefepime since she already has CKD * Urine cultures from 06/05/22 grew enterococcus species * Sensitive to vanc, ampicillin, and macrobid * Switch her to oral ampicillin for 11 more days, for a total of 14 days * blood cultures NGTD * Trend urine output * WBC normal at 5.8 * Trend labs * Adjust therapy as indicated by sensitivities (2) CKD (chronic kidney disease) stage 3, GFR 30-59 ml/min: Code(s): N18.30 - Chronic kidney disease, stage 3 unspecified Status: Acute Assessment and Plan: * Creatinine is continuing to increase currently at 1.80 * Baseline appears to be 1.5 * Bicarb is lower than baseline at 18 * Continue sodium bicarb tablets * Stop IV hydration at this point * Urine studies Na 43, Urea 83, Cr 30.3 * FENa score is 1.8% looking like an ATN * Avoid nephrotoxic medications * trend labs * adjust therapy accordingly * Could be worsening due to UTI or multiple renal calculi * Nephrology consulted thank you for your help (3) Renal tubular acidosis: Code(s): N25.89 - Other disorders resulting from impaired renal tubular function Status: Chronic Assessment and Plan: * Start sodium bicarb tablets * spironolactone is on hold * Trend labs * Labs in the am * Could be the reason for the worsening renal function (4) Hypothyroid: Qualifiers: Hypothyroidism type: unspecified Qualified Code(s): E03.9 - Hypothyroidism, unspecified Code(s): E03.9 - Hypothyroidism, unspecified Status: Chronic Assessment and Plan: * TSH 26.500, T3 1.27, T4 1.16 * Continue home thyroid supplements (5) JUANA (obstructive sleep apnea): Code(s): G47.33 - Obstructive sleep apnea (adult) (pediatric) Status: Acute Assessment and Plan: * Official sleep study has not been obtained * benefit from outpatient polysomnogram on discharge (6) Renal calculi: Code(s): N20.0 - Calculus of kidney Status: Acute Assessment and Plan: * CT of the abd/pel indicated bilateral stone involvement * Stent placed by urology on 05/23/22 * Trend urine output * Antibiotic therapy for possible UTI * Urology consulted (7) Migraine: Code(s): G43.909 - Migraine, unspecified, not intractable, without status migrainosus Status: Acute Assessment and Plan: * Resolved at this time * Seems to be related to health conditions, photophobia * Migraine cocktail given * Continue to trend pain * Tylenol and morphine on board (8) Diarrhea: Code(s): R19.7 - Diarrhea, unspecified Status: Acute Assessment and Plan: * accompanied with nausea * Probably related to antibiotics as she endorses it to be shortly after infusion * Changed antibiotics * Banatrol and probiotic on board * Zofran also available (9) Congestion of upper respiratory tract: Code(s): J39.8 - Other specified diseases of upper respiratory tract Status: Acute Assessment and Plan: * Congestion with cough and drainage * Claritin D added * Trend symptoms
--- NOTE | 2022-06-08 11:00 | PM.IMPN ---
Progress Note: A&P Assessment and Plan (1) UTI (urinary tract infection): Code(s): N39.0 - Urinary tract infection, site not specified Status: Acute Assessment and Plan: Complicated UTI with presence of bilateral ureteral stents.? Urology has been consulted.? Continue vanc and cefepime since she already has CKD Urine cultures from 06/05/22 grew enterococcus species Sensitive to vanc, ampicillin, and macrobid Switch her to oral ampicillin for 11 more days, for a total of 14 days blood cultures NGTD Trend urine output WBC normal at 5.8 Trend labs Adjust therapy as indicated by sensitivities (2) CKD (chronic kidney disease) stage 3, GFR 30-59 ml/min: Code(s): N18.30 - Chronic kidney disease, stage 3 unspecified Status: Acute Assessment and Plan: Creatinine is continuing to increase currently at 1.80 Baseline appears to be 1.5 Bicarb is lower than baseline at 18 Continue sodium bicarb tablets Stop IV hydration at this point Urine studies Na 43, Urea 83, Cr 30.3 FENa score is 1.8% looking like an ATN Avoid nephrotoxic medications trend labs adjust therapy accordingly Could be worsening due to UTI or multiple renal calculi Nephrology consulted thank you for your help (3) Renal tubular acidosis: Code(s): N25.89 - Other disorders resulting from impaired renal tubular function Status: Chronic Assessment and Plan: Start sodium bicarb tablets spironolactone is on hold Trend labs Labs in the am Could be the reason for the worsening renal function (4) Hypothyroid: Qualifiers: Hypothyroidism type: unspecified Qualified Code(s): E03.9 - Hypothyroidism, unspecified Code(s): E03.9 - Hypothyroidism, unspecified Status: Chronic Assessment and Plan: TSH 26.500, T3 1.27, T4 1.16 Continue home thyroid supplements (5) JUANA (obstructive sleep apnea): Code(s): G47.33 - Obstructive sleep apnea (adult) (pediatric) Status: Acute Assessment and Plan: Official sleep study has not been obtained benefit from outpatient polysomnogram on discharge (6) Renal calculi: Code(s): N20.0 - Calculus of kidney Status: Acute Assessment and Plan: CT of the abd/pel indicated bilateral stone involvement Stent placed by urology on 05/23/22 Trend urine output Antibiotic therapy for possible UTI Urology consulted (7) Migraine: Code(s): G43.909 - Migraine, unspecified, not intractable, without status migrainosus Status: Acute Assessment and Plan: Resolved at this time Seems to be related to health conditions, photophobia Migraine cocktail given Continue to trend pain Tylenol and morphine on board (8) Diarrhea: Code(s): R19.7 - Diarrhea, unspecified Status: Acute Assessment and Plan: accompanied with nausea Probably related to antibiotics as she endorses it to be shortly after infusion Changed antibiotics Banatrol and probiotic on board Zofran also available (9) Congestion of upper respiratory tract: Code(s): J39.8 - Other specified diseases of upper respiratory tract Status: Acute Assessment and Plan: Congestion with cough and drainage Claritin D added Trend symptoms (10) Anxiety: Code(s): F41.9 - Anxiety disorder, unspecified Status: Acute Assessment and Plan: anxiety about having multiple medical problems Ativan added as she has been prescribed this in the past Trend mood Adjust accordingly Time Spent With Patient Time with patient: Greater than 35 minutes Subjective Date/time seen: 06/08/22 1100 Interval history: 06/08/22 1100 Patient is still having problems with nausea. She is also stating that she is having a hard time sleeping at night. Did add some ativan as she gets really worke
[2022-06-08 11:29] LABS: NT Pro B Type Natriuretic Pept 49 pg/mL (5-100)
[2022-06-08] MEDS: LORATADINE/PSEUDOEPHEDRINE (*CRX) 10/240 MG TABLET ER 24 HR 1 TAB PO (11:59)
[2022-06-08] MEDS: LORazepam (*CRX) 0.5 MG TABLET PO ×2 (11:59→18:23)
--- NOTE | 2022-06-08 12:19 | P.PNNP_ITS ---
Progress Note: A&P Assessment and Plan (1) LAURA (acute kidney injury): Code(s): N17.9 - Acute kidney failure, unspecified Status: Acute Assessment and Plan: * creatinine up a bit from baseline * presumably due to UTI(?) +/- volume depletion * kidney stones could be playing a role (but creatinine was stable before admission) * evaluation to date: * CT of abd/pelvis with no obstruction (stone fragments and stents present) * UA suggestive of UTI * urine electrolytes are not prerenal * s/p trial of IVF hydration * follow trend of repeat labs and UOP with current interventions (2) Stage 3b chronic kidney disease: Code(s): N18.32 - Chronic kidney disease, stage 3b Status: Chronic Assessment and Plan: * baseline creatinine runs ~ 1.4 - 1.6mg/dl in the last year * secondary to medullary nephrocalcinosis and recurrent kidney stones (3) UTI (urinary tract infection): Code(s): N39.0 - Urinary tract infection, site not specified Status: Acute Assessment and Plan: * admission UA seems suggestive * follow-up on urine culture * on broad spectrum antibiotics (4) Renal tubular acidosis: Code(s): N25.89 - Other disorders resulting from impaired renal tubular function Status: Chronic Assessment and Plan: * chronic issue * usually takes baking soda for treatment * on sodium bicarbonate (5) Nephrolithiasis: Code(s): N20.0 - Calculus of kidney Status: Acute Assessment and Plan: * as noted by history and intervention earlier this month * CT scan of abd/pelvis noted * Urology consulted Will continue to follow. Subjective Date/time seen: 06/08/22 12:19 Still having on/off issues with nausea as well as diarrhea; also reports insomnia as well; she remains quite concerned about her overall health issues given the multiple set backs in the last few weeks leading up to her hospitalization/admission. Exam Narrative: General: WD/WN female in NAD Heart: normal S1 and S2; no rub Lungs: clear to auscultation Abdomen: soft, nontender, nondistended, positive bowel sounds Extremities: no cyanosis or clubbing; no edema Skin: warm and intact Objective Data Vital Signs Vital Signs: Vital Signs Temp Pulse Resp BP Pulse Ox O2 Del Method 06/08/22 08:00 Room Air 06/08/22 06:00 36.9 C 66 17 104/70 100 06/07/22 22:00 37.2 C 81 18 122/67 98 Intake/Output Intake/Output: Intake & Output 06/05/22 06/06/22 06/07/22 06/08/22 23:59 23:59 23:59 23:59 Intake Total 100 6620 3050 580 Output Total 0 1650 Balance 100 6620 1400 580 Meds/Results Medications: Active Medications Generic Name Dose Route Start Last Admin Trade Name Freq PRN Reason Stop Dose Admin Acetaminophen 1,000 mg 06/07/22 06:10 06/08/22 01:17 Acetaminophen 500 Mg Tablet PO 1,000 mg Q6H PRN Administration Mild Pain (1-3) or Fever Ampicillin 500 mg 06/08/22 18:00 Ampicillin Trihydrate 500 Mg Capsule PO 06/19/22 17:59 Q6HR SUZANNE Benzocaine 1 lozenge 06/06/22 23:56 06/07/22 00:59 Benzocaine/Menthol (*Bkc) 18 Ea Lozenge PO 1 lozenge PRN PRN
--- NOTE | 2022-06-08 12:19 | PM.PNNEP ---
Progress Note: A&P Assessment and Plan (1) LAURA (acute kidney injury): Code(s): N17.9 - Acute kidney failure, unspecified Status: Acute Assessment and Plan: creatinine up a bit from baseline presumably due to UTI(?) +/- volume depletion kidney stones could be playing a role (but creatinine was stable before admission) evaluation to date: CT of abd/pelvis with no obstruction (stone fragments and stents present) UA suggestive of UTI urine electrolytes are not prerenal s/p trial of IVF hydration follow trend of repeat labs and UOP with current interventions (2) Stage 3b chronic kidney disease: Code(s): N18.32 - Chronic kidney disease, stage 3b Status: Chronic Assessment and Plan: baseline creatinine runs ~ 1.4 - 1.6mg/dl in the last year secondary to medullary nephrocalcinosis and recurrent kidney stones (3) UTI (urinary tract infection): Code(s): N39.0 - Urinary tract infection, site not specified Status: Acute Assessment and Plan: admission UA seems suggestive follow-up on urine culture on broad spectrum antibiotics (4) Renal tubular acidosis: Code(s): N25.89 - Other disorders resulting from impaired renal tubular function Status: Chronic Assessment and Plan: chronic issue usually takes baking soda for treatment on sodium bicarbonate (5) Nephrolithiasis: Code(s): N20.0 - Calculus of kidney Status: Acute Assessment and Plan: as noted by history and intervention earlier this month CT scan of abd/pelvis noted Urology consulted Will continue to follow. Subjective Date/time seen: 06/08/22 12:19 Still having on/off issues with nausea as well as diarrhea; also reports insomnia as well; she remains quite concerned about her overall health issues given the multiple set backs in the last few weeks leading up to her hospitalization/admission. Exam Narrative: General: WD/WN female in NAD Heart: normal S1 and S2; no rub Lungs: clear to auscultation Abdomen: soft, nontender, nondistended, positive bowel sounds Extremities: no cyanosis or clubbing; no edema Skin: warm and intact Objective Data Vital Signs Vital Signs: Vital Signs Temp Pulse Resp BP Pulse Ox O2 Del Method 06/08/22 08:00 Room Air 06/08/22 06:00 36.9 C 66 17 104/70 100 06/07/22 22:00 37.2 C 81 18 122/67 98 Intake/Output Intake/Output: Intake & Output 06/05/22 06/06/22 06/07/22 06/08/22 23:59 23:59 23:59 23:59 Intake Total 100 6620 3050 580 Output Total 0 1650 Balance 100 6620 1400 580 Meds/Results Medications: Active Medications Generic Name Dose Route Start Last Admin Trade Name Freq PRN Reason Stop Dose Admin Acetaminophen 1,000 mg 06/07/22 06:10 06/08/22 01:17 Acetaminophen 500 Mg Tablet PO 1,000 mg Q6H PRN Administration Mild Pain (1-3) or Fever Ampicillin 500 mg 06/08/22 18:00 Ampicillin Trihydrate 500 Mg Capsule PO 06/19/22 17:59 Q6HR SUZANNE Benzocaine 1 lozenge 06/06/22 23:56 06/07/22 00:59 Benzocaine/Menthol (*Bkc) 18 Ea Lozenge PO 1 lozenge PRN PRN Administration Sore Throat Enoxaparin Sodium 40 mg 06/06/22 09:00 06/08/22 08:32 Enoxaparin 40 Mg/0.4 Ml Syringe SUB-Q 40 mg DAILY SUZANNE Administration Fluticasone Propionate 2 spray 06/07/22 09:00 06/08/22 08:31 Fluticasone Propionate 0.05% Na Spr 16 Gm Btl (*Bkc) NASAL 2 spray QAM SUZANNE Administration Home Med 1 each 06/07/22 06:30 06/08/22 06:42 Levothyroxine Sodium 88 Mcg (Tirosint) Tablet PO 1 each DAILY@0630 SUZANNE Administration Loratadine/Pseudoephedrine Sulfate 1 tab 06/08/22 11:25 06/08/22 11:59 Loratadine/Pseudoephedrine (*Crx) 10/240 Mg Tablet Er 24 Hr PO 1 tab QAM SUZANNE Administration Lorazepam 0.5 mg 06/08/22 09:27 06/08/22 11:59 Lorazepam (*Crx) 0.5 Mg Tablet PO 0.5 mg Q6H PRN Administration Anxiety Mor
[2022-06-08 14:00] VITALS: PULSE 73; RESP 20; TEMP 36.2; O2SAT 98
[2022-06-08] MEDS: AMPICILLIN TRIHYDRATE 500 MG CAPSULE PO (18:23)
[2022-06-08 22:00] VITALS: BP 118/68; PULSE 72; RESP 16; TEMP 36.6; O2SAT 98
[2022-06-09] MEDS: ACETAMINOPHEN 500 MG TABLET 1000 MG PO ×3 (00:09→23:23)
[2022-06-09] MEDS: AMPICILLIN TRIHYDRATE 500 MG CAPSULE PO ×5 (00:10→23:25)
[2022-06-09] MEDS: LORazepam (*CRX) 0.5 MG TABLET PO ×3 (00:10→23:23)
[2022-06-09 06:00] VITALS: BP 100/54; PULSE 63; RESP 14; TEMP 36.9; O2SAT 99
[2022-06-09 07:29] LABS: Basophils Percent Auto 0.5 % (0.2-1.2); Eosinophils Absolute Auto 0.3 K/mm3 (0-0.3); Eosinophils Percent Auto 4.9 % (0-4.4); Hematocrit 44.5 % (37.0-47.0); Hemoglobin 14.1 g/dL (12.0-15.0); Immature Granulocyte Absolute 0.03 K/mm3 (0.00-0.031); Immature Granulocyte Percent A 0.5 % (0-0.5); Lymphocytes Absolute Auto 1.69 K/mm3 (0.9-3.2); Lymphocytes Percent Auto 28.5 % (18.3-44.2); Mean Corpuscular HGB Conc 31.7 g/dl (32-36); Mean Corpuscular Hemoglobin 29.2 pg (26-34); Mean Corpuscular Volume 92.1 fl (80-100); Mean Platelet Volume 10.4 fl (7.4-10.4); Monocytes Absolute Auto 0.9 K/mm3 (0.1-0.6); Monocytes Percent Auto 15.2 % (2.6-8.5); Neutrophils Percent Auto 50.4 % (45.5-73.1); Platelet Count Result 241 k/mm3 (150-375); Red Blood Count 4.83 M/mm3 (4.2-5.4); Red Cell Distribution Width 15.5 % (11.5-14.5); White Blood Count 5.9 K/mm3 (4.5-10.0)
[2022-06-09 07:38] LABS: Alanine Aminotransferase 26 U/L (6-35); Albumin Level 4.2 g/dL (3.5-5.1); Alkaline Phosphatase 52 U/L (38-126); Anion Gap 11 mmol/L (8-16); Aspartate Amino Transferase 28 U/L (14-36); Bilirubin,Total 0.3 mg/dL (0.2-1.3); Blood Urea Nitrogen 17 mg/dL (7-17); Calcium 8.9 mg/dL (8.4-10.2); Carbon Dioxide 20 mmol/L (22-30); Chloride 109 mmol/L (98-107); Estimated CRCL calculation 44 ml/min; Estimated Glomerular Filt Rate 33; Glucose 107 mg/dL (65-110); Magnesium 2.1 mg/dL (1.6-2.3); Potassium 3.8 mmol/L (3.4-5.0); Sodium 140 mmol/L (137-145)
[2022-06-09 08:57] LABS: Appearance Urine Slightly Cloudy (Clear); Bilirubin Urine Negative (Negative); Blood Urine 3+ (Negative); Color Urine Yellow (Yellow); Glucose Urine UA Negative (Negative); Ketones Urine Negative (Negative); Leukocyte Esterase Ur 3+ LEU/UL (Negative); Nitrate Urine Negative (Negative); Protein Urine 1+ mg/dL (Negative); Specific Grav Ur 1.015 (1.001-1.035); Urobilinogen Urine 0.2 mg/dL (<2.0)
[2022-06-09 09:02] LABS: Bacteria Urine Trace /hpf; RBC Urine 51-75 /hpf (0-2); Squamous Epithelial Cell Urine Rare /hpf (Few); WBC Urine 21-30 /hpf
[2022-06-09 09:04] LABS: Add Urine Microscopic? YES
[2022-06-09] MEDS: LORATADINE/PSEUDOEPHEDRINE (*CRX) 10/240 MG TABLET ER 24 HR 1 TAB PO (09:53)
[2022-06-09] MEDS: SODIUM BICARBONATE TAB 325 MG TABLET PO ×2 (09:53→17:43)
[2022-06-09] MEDS: ONDANSETRON INJ 4 MG/2 ML VIAL IV PUSH (09:53)
[2022-06-09] MEDS: ENOXAPARIN 40 MG/0.4 ML SYRINGE SUB-Q (09:53)
[2022-06-09] MEDS: FLUTICASONE PROPIONATE 0.05% NA SPR 16 GM BTL (*BKC) 2 SPRAY NASAL (09:53)
[2022-06-09] MEDS: SACCHAROMYCES BOULARDII 250 MG CAPSULE PO ×2 (09:54→17:43)
[2022-06-09] MEDS: HYDROcodone/acetaminophen (*CRX) 5-325 MG TABLET 1 TAB PO (12:38)
--- NOTE | 2022-06-09 13:53 | WPDURCON ---
Assessment and Plan Assessment and plan (1) Ureteral stent present: Code(s): Z96.0 - Presence of urogenital implants Status: Acute Assessment and Plan: Appropriate position on CT scan. (2) Right ureteral stone: Code(s): N20.1 - Calculus of ureter Status: Acute Assessment and Plan: Right distal ureter after lithotripsy (3) UTI (urinary tract infection): Code(s): N39.0 - Urinary tract infection, site not specified Status: Acute Assessment and Plan: Enterococcus. On appropriate antibiotics She require 14 days of p.o. antibiotics total Plan I will speak with Dr. Berkowitz the timing of her procedure to remove her right distal ureteral stones. Urology Consult Note HPI Date Seen: 06/09/22 Requesting Physician: Xiomara Cross DO Primary Care Provider: Mani Rubio MD Consult Narrative Narrative: Danyell Wong is a 56 year old female with a history of renal tubular acidosis and a long history of kidney stones. Earlier this month she underwent a right-sided lithotripsy and a left-sided ureteroscopy. She has stents in place. Her left side looks fairly clear of stones other than parenchymal stones. Her right side shows stone fragments in the distal ureter. She has bilateral stents in appropriate position. She was admitted to the hospital Joey night for fevers. A urine culture shows Enterococcus. We were unaware of her admission until this morning. She is currently feeling improved. Her fever curve has improved. She has stent discomfort. She notes suprapubic discomfort as well as frequency due to the stents. I viewed her CT scan and her KUB. Review of Systems Review of Systems: All systems reviewed & are unremarkable except as noted in HPI and below PMFSH Past Medical History Medical History Anxiety Chronic kidney disease CKD (chronic kidney disease) stage 3, GFR 30-59 ml/min Edema Hypothyroid Kidney stones Nephrocalcinosis JUANA (obstructive sleep apnea) Patient denies being tested for sleep apnea Renal tubular acidosis Ureterolithiasis With history of prior nephrostomy tubes in 2014 Surgical History Surgical History History of breast augmentation History of tonsillectomy S/P ureteral stent placement Family History Family History Father Acute myocardial infarction Tobacco abuse Mother Cerebrovascular accident Sibling Thyroid activity decreased Other Family history of cardiovascular disease Hypertension Social History Social History (Updated 06/06/22 @ 07:26 by Xiomara Cross DO) Social History: She has been since 1982. 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 Gender identity (if verbalized by the patient): Female Spiritual care concerns: No Meds Home Medications and Allergies Home Medications Medication Instructions Recorded Confirmed Type spironolactone 25 mg tablet 25 mg PO DAILY 11/10/19 06/06/22 History cholecalciferol (vitamin D3) 1,250 50,000 unit PO .Twice a month #6 04/11/22 06/06/22 Rx mcg (50,000 unit) capsule caps levothyroxine 112 mcg tablet 88 mcg PO HS 05/22/22 06/06/22 History (Unithroid) sodium bicarbonate See Rx Instructions .Route .COMPLEX 06/06/22 06/06/22 History Allergies Allergy/AdvReac Type Severity Reaction Status Date / Time No Known Allergies Allergy Verified 06/06/22 07:34 Vital Signs Vital Signs - 24 hr 06/08/22 14:00 06/08/22 22:00 06/09/22 06:00 Temperature 97.1 F L 97.8 F 98.4 F Pulse Rate 73 72 63 Respiratory Rate 20 16 14 Blood Pressure 118/68 100/54 L Pulse Oximetry 98
[2022-06-09 14:00] VITALS: BP 124/79; PULSE 75; RESP 16; TEMP 37.2; O2SAT 99
[2022-06-09 15:38] LABS: Osmolality, Urine 158 mOsm/kg (50-1200)
--- NOTE | 2022-06-09 17:45 | P.PNIM_ITS ---
Progress Note: A&P Assessment and Plan (1) UTI (urinary tract infection): Code(s): N39.0 - Urinary tract infection, site not specified Status: Acute Assessment and Plan: * Complicated UTI with presence of bilateral ureteral stents.? * Urology consulted and plans for ureteral stone remove and replacement of stents. * Urine culture with enterococcus species sensitive to ampicillin. * Cefepime and Vancomycin changed to oral ampicillin for a total of 14 days * blood cultures NGTD * Trend urine output * WBC normal at 5.9 * Trend labs * Adjust therapy as indicated by sensitivities (2) CKD (chronic kidney disease) stage 3, GFR 30-59 ml/min: Code(s): N18.30 - Chronic kidney disease, stage 3 unspecified Status: Acute Assessment and Plan: * Creatinine 1.6, BUN 17 currently. Baseline creatinine appears to be 1.5 * Bicarb 20. Continue sodium bicarb tablets * Off IV fluids. * Urine studies Na 43, Urea 83, Cr 30.3 * FENa score is 1.8% looking like an ATN * Avoid nephrotoxic medications * trend labs and UOP * adjust therapy accordingly * Nephrology consulted thank you for your help (3) Renal tubular acidosis: Code(s): N25.89 - Other disorders resulting from impaired renal tubular function Status: Chronic Assessment and Plan: * On sodium bicarb tablets * spironolactone held * Trend labs * monitor renal function (4) Hypothyroid: Qualifiers: Hypothyroidism type: unspecified Qualified Code(s): E03.9 - Hypothyroidism, unspecified Code(s): E03.9 - Hypothyroidism, unspecified Status: Chronic Assessment and Plan: * TSH 26.500, T3 1.27, T4 1.16 * Continue home thyroid supplements. Previous TSH >100 and synthroid was resumed at that time. (5) JUANA (obstructive sleep apnea): Code(s): G47.33 - Obstructive sleep apnea (adult) (pediatric) Status: Acute Assessment and Plan: * Official sleep study has not been obtained * benefit from outpatient polysomnogram on discharge (6) Renal calculi: Code(s): N20.0 - Calculus of kidney Status: Acute Assessment and Plan: * CT of the abd/pel indicated bilateral stone involvement * Stent placed by urology on 05/23/22 * Trend urine output * Antibiotic therapy for possible UTI * Urology consulted and plan for stone removal 06/10 (7) Migraine: Code(s): G43.909 - Migraine, unspecified, not intractable, without status migrainosus Status: Resolved Assessment and Plan: * Resolved at this time (8) Diarrhea: Code(s): R19.7 - Diarrhea, unspecified Status: Acute Assessment and Plan: * accompanied with nausea * Probably related to antibiotics as she endorses it to be shortly after infusion * Changed antibiotics * Banatrol and probiotic on board * Zofran also available * stable, improving. (9) Congestion of upper respiratory tract: Code(s): J39.8 - Other specified diseases of upper respiratory tract Status: Acute Assessment and Plan: * Congestion with cough and drainage * Claritin D added * Trend symptoms * Stable (10) Anxiety: Code(s): F41.9 - Anxiety disorder, unspecified Status: Acute Assessment and Plan: * anxiety about having multiple medical problems * Ativan added as she has been prescribed this in the past * Trend mood * Adjust accordingly * Stable.
--- NOTE | 2022-06-09 17:45 | PM.IMPN ---
Progress Note: A&P Assessment and Plan (1) UTI (urinary tract infection): Code(s): N39.0 - Urinary tract infection, site not specified Status: Acute Assessment and Plan: Complicated UTI with presence of bilateral ureteral stents.? Urology consulted and plans for ureteral stone remove and replacement of stents. Urine culture with enterococcus species sensitive to ampicillin. Cefepime and Vancomycin changed to oral ampicillin for a total of 14 days blood cultures NGTD Trend urine output WBC normal at 5.9 Trend labs Adjust therapy as indicated by sensitivities (2) CKD (chronic kidney disease) stage 3, GFR 30-59 ml/min: Code(s): N18.30 - Chronic kidney disease, stage 3 unspecified Status: Acute Assessment and Plan: Creatinine 1.6, BUN 17 currently. Baseline creatinine appears to be 1.5 Bicarb 20. Continue sodium bicarb tablets Off IV fluids. Urine studies Na 43, Urea 83, Cr 30.3 FENa score is 1.8% looking like an ATN Avoid nephrotoxic medications trend labs and UOP adjust therapy accordingly Nephrology consulted thank you for your help (3) Renal tubular acidosis: Code(s): N25.89 - Other disorders resulting from impaired renal tubular function Status: Chronic Assessment and Plan: On sodium bicarb tablets spironolactone held Trend labs monitor renal function (4) Hypothyroid: Qualifiers: Hypothyroidism type: unspecified Qualified Code(s): E03.9 - Hypothyroidism, unspecified Code(s): E03.9 - Hypothyroidism, unspecified Status: Chronic Assessment and Plan: TSH 26.500, T3 1.27, T4 1.16 Continue home thyroid supplements. Previous TSH >100 and synthroid was resumed at that time. (5) JUANA (obstructive sleep apnea): Code(s): G47.33 - Obstructive sleep apnea (adult) (pediatric) Status: Acute Assessment and Plan: Official sleep study has not been obtained benefit from outpatient polysomnogram on discharge (6) Renal calculi: Code(s): N20.0 - Calculus of kidney Status: Acute Assessment and Plan: CT of the abd/pel indicated bilateral stone involvement Stent placed by urology on 05/23/22 Trend urine output Antibiotic therapy for possible UTI Urology consulted and plan for stone removal 06/10 (7) Migraine: Code(s): G43.909 - Migraine, unspecified, not intractable, without status migrainosus Status: Resolved Assessment and Plan: Resolved at this time (8) Diarrhea: Code(s): R19.7 - Diarrhea, unspecified Status: Acute Assessment and Plan: accompanied with nausea Probably related to antibiotics as she endorses it to be shortly after infusion Changed antibiotics Banatrol and probiotic on board Zofran also available stable, improving. (9) Congestion of upper respiratory tract: Code(s): J39.8 - Other specified diseases of upper respiratory tract Status: Acute Assessment and Plan: Congestion with cough and drainage Claritin D added Trend symptoms Stable (10) Anxiety: Code(s): F41.9 - Anxiety disorder, unspecified Status: Acute Assessment and Plan: anxiety about having multiple medical problems Ativan added as she has been prescribed this in the past Trend mood Adjust accordingly Stable. Time Spent With Patient Time with patient: 25 - 35 minutes Subjective Date/time seen: 06/09/22 17:45 Interval history: Patient is a 56 yo female with nephrolithiasis, CKD stage 3, hypothyroidism, and recent bilateral ureteral stent placement admitted for c/o urinary frequency, dysuria, and fevers. She c/o lower abdominal pressure and urinary frequency. She is having more pain not improved with acetaminophen. No fever, chills, rigors, hematuria, or flank pain. Review of Systems Review of Systems: All systems reviewed & are unremarkabl
--- NOTE | 2022-06-09 18:18 | P.PNNP_ITS ---
Progress Note: A&P Assessment and Plan (1) LAURA (acute kidney injury): Code(s): N17.9 - Acute kidney failure, unspecified Status: Acute Assessment and Plan: * creatinine up a bit from baseline * presumably due to UTI(?) +/- volume depletion * kidney stones could be playing a role (but creatinine was stable before admission) * evaluation to date: * CT of abd/pelvis with no obstruction (stone fragments and stents present) * UA suggestive of UTI * urine electrolytes are not prerenal * s/p trial of IVF hydration * her creatinine improved a little bit today to 1.6. * Will check again in the morning (2) Stage 3b chronic kidney disease: Code(s): N18.32 - Chronic kidney disease, stage 3b Status: Chronic Assessment and Plan: * baseline creatinine runs ~ 1.4 - 1.6mg/dl in the last year * secondary to medullary nephrocalcinosis and recurrent kidney stones * she has never tolerated potassium citrate. She says she wants to try this again as an outpatient. (3) UTI (urinary tract infection): Code(s): N39.0 - Urinary tract infection, site not specified Status: Acute Assessment and Plan: * Pyuria on admission. * Culture shows Enterococcus. * She is on Ampicillin. (4) Renal tubular acidosis: Code(s): N25.89 - Other disorders resulting from impaired renal tubular function Status: Chronic Assessment and Plan: * chronic issue * usually takes baking soda for treatment * on sodium bicarbonate * As an outputs elizabeth will switch to potassium citrate and hopefully she will tolerate this. (5) Nephrolithiasis: Code(s): N20.0 - Calculus of kidney Status: Acute Assessment and Plan: * as noted by history and intervention earlier this month * CT scan of abd/pelvis noted * Urology consulted * I appreciate their input Subjective Date/time seen: 06/09/22 18:18 Interval history: Patient is alert. She has worn out but generally feels better. Drinking lots of fluid. Exam Narrative: General: WD/WN female in NAD Heart: normal S1 and S2; no rub Lungs: clear Abdomen: soft, nontender, nondistended, positive bowel sounds Extremities: no cyanosis or clubbing; no edema Skin: No rash Objective Data Vital Signs Vital Signs: Vital Signs - 24 hr 06/08/22 22:00 06/09/22 06:00 06/09/22 09:00 Temperature 36.6 C 36.9 C Pulse Rate 72 63 Respiratory Rate 16 14 Blood Pressure 118/68 100/54 L Pulse Oximetry 98 99 Oxygen Delivery Room Air 06/09/22 14:00 Temperature 37.2 C Pulse Rate 75 Respiratory Rate 16 Blood Pressure 124/79 Pulse Oximetry 99 Oxygen Delivery Intake/Output Intake/Output: Intake & Output 06/06/22 06/07/22 06/08/22 06/09/22 23:59 23:59 23:59 23:59 Intake Total 6620 3050 2504 2070 Output Total 0 1650 2125 Balance 6620 1400 2504 -55 Meds/Results Medications: Active Medications Generic Name Dose Route Start Last Admin Trade Name Jered PRN Reason Stop Dose Admin Acetaminophen 1,000 mg 06/07/22 06:10 06/09/22 06:39 Acetaminophen 500 Mg Tablet PO 1,000 mg Q
--- NOTE | 2022-06-09 18:18 | PM.PNNEP ---
Progress Note: A&P Assessment and Plan (1) LAURA (acute kidney injury): Code(s): N17.9 - Acute kidney failure, unspecified Status: Acute Assessment and Plan: creatinine up a bit from baseline presumably due to UTI(?) +/- volume depletion kidney stones could be playing a role (but creatinine was stable before admission) evaluation to date: CT of abd/pelvis with no obstruction (stone fragments and stents present) UA suggestive of UTI urine electrolytes are not prerenal s/p trial of IVF hydration her creatinine improved a little bit today to 1.6. Will check again in the morning (2) Stage 3b chronic kidney disease: Code(s): N18.32 - Chronic kidney disease, stage 3b Status: Chronic Assessment and Plan: baseline creatinine runs ~ 1.4 - 1.6mg/dl in the last year secondary to medullary nephrocalcinosis and recurrent kidney stones she has never tolerated potassium citrate. She says she wants to try this again as an outpatient. (3) UTI (urinary tract infection): Code(s): N39.0 - Urinary tract infection, site not specified Status: Acute Assessment and Plan: Pyuria on admission. Culture shows Enterococcus. She is on Ampicillin. (4) Renal tubular acidosis: Code(s): N25.89 - Other disorders resulting from impaired renal tubular function Status: Chronic Assessment and Plan: chronic issue usually takes baking soda for treatment on sodium bicarbonate As an outputs elizabeth will switch to potassium citrate and hopefully she will tolerate this. (5) Nephrolithiasis: Code(s): N20.0 - Calculus of kidney Status: Acute Assessment and Plan: as noted by history and intervention earlier this month CT scan of abd/pelvis noted Urology consulted I appreciate their input Subjective Date/time seen: 06/09/22 18:18 Interval history: Patient is alert. She has worn out but generally feels better. Drinking lots of fluid. Exam Narrative: General: WD/WN female in NAD Heart: normal S1 and S2; no rub Lungs: clear Abdomen: soft, nontender, nondistended, positive bowel sounds Extremities: no cyanosis or clubbing; no edema Skin: No rash Objective Data Vital Signs Vital Signs: Vital Signs - 24 hr 06/08/22 22:00 06/09/22 06:00 06/09/22 09:00 Temperature 36.6 C 36.9 C Pulse Rate 72 63 Respiratory Rate 16 14 Blood Pressure 118/68 100/54 L Pulse Oximetry 98 99 Oxygen Delivery Room Air 06/09/22 14:00 Temperature 37.2 C Pulse Rate 75 Respiratory Rate 16 Blood Pressure 124/79 Pulse Oximetry 99 Oxygen Delivery Intake/Output Intake/Output: Intake & Output 06/06/22 06/07/22 06/08/22 06/09/22 23:59 23:59 23:59 23:59 Intake Total 6620 3050 2504 2070 Output Total 0 1650 2125 Balance 6620 1400 2504 -55 Meds/Results Medications: Active Medications Generic Name Dose Route Start Last Admin Trade Name Freq PRN Reason Stop Dose Admin Acetaminophen 1,000 mg 06/07/22 06:10 06/09/22 06:39 Acetaminophen 500 Mg Tablet PO 1,000 mg Q6H PRN Administration Mild Pain (1-3) or Fever Hydrocodone Bitart/Acetaminophen 1 tab 06/09/22 10:12 06/09/22 12:38 Hydrocodone/Acetaminophen (*Crx) 5-325 Mg Tablet PO 1 tab Q4H PRN Administration Pain Rated 4-6 Ampicillin 500 mg 06/08/22 18:00 06/09/22 17:43 Ampicillin Trihydrate 500 Mg Capsule PO 06/19/22 17:59 500 mg Q6HR SUZANNE Administration Benzocaine 1 lozenge 06/06/22 23:56 06/07/22 00:59 Benzocaine/Menthol (*Bkc) 18 Ea Lozenge PO 1 lozenge PRN PRN Administration Sore Throat Enoxaparin Sodium 40 mg 06/06/22 09:00 06/09/22 09:53 Enoxaparin 40 Mg/0.4 Ml Syringe SUB-Q 40 mg DAILY SUZANNE Administration Fluticasone Propionate 2 spray 06/07/22 09:00 06/09/22 09:53 Fluticasone Propionate 0.05% Na Spr 16 Gm Btl (*Bkc) NASAL 2 spray QAM SUZANNE Administration H
[2022-06-09 20:15] VITALS: PULSE 73; RESP 18; O2SAT 98
[2022-06-09 21:50] VITALS: BP 115/68; PULSE 73; RESP 18; TEMP 36.9; O2SAT 98
[2022-06-10] VITALS (12 sets, daily range): BP systolic 116–158; BP diastolic 66–97; PULSE 63–80; RESP 10–20; TEMP 35.7–37; O2SAT 95–99
[2022-06-10] MEDS: MORPHINE SULFATE (*CRX) 4 MG/ML INJ IV PUSH (04:12)
[2022-06-10] MEDS: AMPICILLIN TRIHYDRATE 500 MG CAPSULE PO ×2 (06:14→20:24)
[2022-06-10] MEDS: SACCHAROMYCES BOULARDII 250 MG CAPSULE PO ×2 (06:19→20:24)
[2022-06-10 06:25] LABS: Hematocrit 44.4 % (37.0-47.0); Hemoglobin 13.9 g/dL (12.0-15.0); Mean Corpuscular HGB Conc 31.3 g/dl (32-36); Mean Corpuscular Hemoglobin 29.2 pg (26-34); Mean Corpuscular Volume 93.3 fl (80-100); Mean Platelet Volume 10.3 fl (7.4-10.4); Platelet Count Result 234 k/mm3 (150-375); Red Blood Count 4.76 M/mm3 (4.2-5.4); Red Cell Distribution Width 15.4 % (11.5-14.5); White Blood Count 7.7 K/mm3 (4.5-10.0)
[2022-06-10 06:39] LABS: Anion Gap 11 mmol/L (8-16); Blood Urea Nitrogen 18 mg/dL (7-17); Calcium 8.8 mg/dL (8.4-10.2); Carbon Dioxide 20 mmol/L (22-30); Chloride 109 mmol/L (98-107); Estimated CRCL calculation 46 ml/min; Estimated Glomerular Filt Rate 36; Glucose 106 mg/dL (65-110); Potassium 3.9 mmol/L (3.4-5.0); Sodium 140 mmol/L (137-145)
[2022-06-10 06:44] LABS: INR 1.1; Prothrombin Time 13.3 Seconds (11.1-14.7)
--- NOTE | 2022-06-10 07:11 | P.PNNP_ITS ---
Progress Note: A&P Assessment and Plan (1) LAURA (acute kidney injury): Code(s): N17.9 - Acute kidney failure, unspecified Status: Acute Assessment and Plan: * creatinine up a bit from baseline * presumably due to UTI(?) +/- volume depletion * evaluation to date: * CT of abd/pelvis with no obstruction (stone fragments and stents present) * UA suggestive of UTI * urine electrolytes are not prerenal * s/p trial of IVF hydration * her creatinine improved a little bit more today to 1.5 * continue to follow the blood work. (2) Stage 3b chronic kidney disease: Code(s): N18.32 - Chronic kidney disease, stage 3b Status: Chronic Assessment and Plan: * baseline creatinine runs ~ 1.4 - 1.6mg/dl in the last year * secondary to medullary nephrocalcinosis and recurrent kidney stones * she has never tolerated potassium citrate. She says she wants to try this again as an outpatient. (3) UTI (urinary tract infection): Code(s): N39.0 - Urinary tract infection, site not specified Status: Acute Assessment and Plan: * Pyuria on admission. * Culture shows Enterococcus. * She is on Ampicillin since 06/08.. (4) Renal tubular acidosis: Code(s): N25.89 - Other disorders resulting from impaired renal tubular function Status: Chronic Assessment and Plan: * chronic issue * usually takes baking soda for treatment * on sodium bicarbonate * As an outputs elizabeth will switch to potassium citrate and hopefully she will tolerate this. (5) Nephrolithiasis: Code(s): N20.0 - Calculus of kidney Status: Acute Assessment and Plan: * as noted by history and intervention earlier this month * CT scan of abd/pelvis noted * Urology consulted * Procedure today. Subjective Date/time seen: 06/10/22 07:11 Interval history: Patient is alert. NPO for urology procedure today. She ate well yesterday. Drinking lots of fluid when not NPO. Exam Narrative: General: WD/WN female in NAD Heart: normal S1 and S2; no rub Lungs: clear bilaterally Abdomen: soft, nontender, nondistended, positive bowel sounds Extremities: no edema Skin: No rash Objective Data Vital Signs Vital Signs: Vital Signs - 24 hr 06/09/22 09:00 06/09/22 14:00 06/09/22 21:50 Temperature 37.2 C 36.9 C Pulse Rate 75 73 Respiratory Rate 16 18 Blood Pressure 124/79 115/68 Pulse Oximetry 99 98 Oxygen Delivery Room Air 06/09/22 20:15 06/10/22 05:58 Temperature 36.2 C L Pulse Rate 73 78 Respiratory Rate 18 18 Blood Pressure 116/79 Pulse Oximetry 98 99 Oxygen Delivery Room Air Intake/Output Intake/Output: Intake & Output 06/07/22 06/08/22 06/09/22 06/10/22 23:59 23:59 23:59 23:59 Intake Total 3050 2504 2070 550 Output Total 1650 2125 3 Balance 1400 2504 -55 547 Meds/Results Medications: Active Medications Generic Name Dose Route Start Last Admin Trade Name Freq PRN Reason Stop Dose Admin Acetaminophen 1,000 mg 06/07/22 06:10 06/09/22 23:23 Acetaminophen 500 Mg Tablet PO 1,000 mg Q6H PRN Adm
--- NOTE | 2022-06-10 07:11 | PM.PNNEP ---
Progress Note: A&P Assessment and Plan (1) LAURA (acute kidney injury): Code(s): N17.9 - Acute kidney failure, unspecified Status: Acute Assessment and Plan: creatinine up a bit from baseline presumably due to UTI(?) +/- volume depletion evaluation to date: CT of abd/pelvis with no obstruction (stone fragments and stents present) UA suggestive of UTI urine electrolytes are not prerenal s/p trial of IVF hydration her creatinine improved a little bit more today to 1.5 continue to follow the blood work. (2) Stage 3b chronic kidney disease: Code(s): N18.32 - Chronic kidney disease, stage 3b Status: Chronic Assessment and Plan: baseline creatinine runs ~ 1.4 - 1.6mg/dl in the last year secondary to medullary nephrocalcinosis and recurrent kidney stones she has never tolerated potassium citrate. She says she wants to try this again as an outpatient. (3) UTI (urinary tract infection): Code(s): N39.0 - Urinary tract infection, site not specified Status: Acute Assessment and Plan: Pyuria on admission. Culture shows Enterococcus. She is on Ampicillin since 06/08.. (4) Renal tubular acidosis: Code(s): N25.89 - Other disorders resulting from impaired renal tubular function Status: Chronic Assessment and Plan: chronic issue usually takes baking soda for treatment on sodium bicarbonate As an outputs elizabeth will switch to potassium citrate and hopefully she will tolerate this. (5) Nephrolithiasis: Code(s): N20.0 - Calculus of kidney Status: Acute Assessment and Plan: as noted by history and intervention earlier this month CT scan of abd/pelvis noted Urology consulted Procedure today. Subjective Date/time seen: 06/10/22 07:11 Interval history: Patient is alert. NPO for urology procedure today. She ate well yesterday. Drinking lots of fluid when not NPO. Exam Narrative: General: WD/WN female in NAD Heart: normal S1 and S2; no rub Lungs: clear bilaterally Abdomen: soft, nontender, nondistended, positive bowel sounds Extremities: no edema Skin: No rash Objective Data Vital Signs Vital Signs: Vital Signs - 24 hr 06/09/22 09:00 06/09/22 14:00 06/09/22 21:50 Temperature 37.2 C 36.9 C Pulse Rate 75 73 Respiratory Rate 16 18 Blood Pressure 124/79 115/68 Pulse Oximetry 99 98 Oxygen Delivery Room Air 06/09/22 20:15 06/10/22 05:58 Temperature 36.2 C L Pulse Rate 73 78 Respiratory Rate 18 18 Blood Pressure 116/79 Pulse Oximetry 98 99 Oxygen Delivery Room Air Intake/Output Intake/Output: Intake & Output 06/07/22 06/08/22 06/09/22 06/10/22 23:59 23:59 23:59 23:59 Intake Total 3050 2504 2070 550 Output Total 1650 2125 3 Balance 1400 2504 -55 547 Meds/Results Medications: Active Medications Generic Name Dose Route Start Last Admin Trade Name Freq PRN Reason Stop Dose Admin Acetaminophen 1,000 mg 06/07/22 06:10 06/09/22 23:23 Acetaminophen 500 Mg Tablet PO 1,000 mg Q6H PRN Administration Mild Pain (1-3) or Fever Hydrocodone Bitart/Acetaminophen 1 tab 06/09/22 10:12 06/09/22 12:38 Hydrocodone/Acetaminophen (*Crx) 5-325 Mg Tablet PO 1 tab Q4H PRN Administration Pain Rated 4-6 Ampicillin 500 mg 06/08/22 18:00 06/10/22 06:14 Ampicillin Trihydrate 500 Mg Capsule PO 06/19/22 17:59 500 mg Q6HR SUZANNE Administration Benzocaine 1 lozenge 06/06/22 23:56 06/07/22 00:59 Benzocaine/Menthol (*Bkc) 18 Ea Lozenge PO 1 lozenge PRN PRN Administration Sore Throat Enoxaparin Sodium 40 mg 06/06/22 09:00 06/09/22 09:53 Enoxaparin 40 Mg/0.4 Ml Syringe SUB-Q 40 mg DAILY SUZANNE Administration Fluticasone Propionate 2 spray 06/07/22 09:00 06/09/22 09:53 Fluticasone Propionate 0.05% Na Spr 16 Gm Btl (*Bkc) NASAL 2 spray QAM SUZANNE Administration Home Med 1 each 05/22
--- NOTE | 2022-06-10 11:10 | P.PNIM_ITS ---
Progress Note: A&P Assessment and Plan (1) UTI (urinary tract infection): Code(s): N39.0 - Urinary tract infection, site not specified Status: Acute Assessment and Plan: * Complicated UTI with presence of bilateral ureteral stents.? * Urology consulted and plans for ureteral stone remove and replacement of stents. * Urine culture with enterococcus species sensitive to ampicillin. * Cefepime and Vancomycin changed to oral ampicillin for a total of 14 days (continue until 06/19/22) * blood cultures negative to date * Trend urine output and CBC. * WBC normal and afebrile. (2) CKD (chronic kidney disease) stage 3, GFR 30-59 ml/min: Qualifiers: Chronic kidney disease stage 3 subtype: stage 3b (GFR 30-44) Qualified Code(s): N18.32 - Chronic kidney disease, stage 3b Code(s): N18.30 - Chronic kidney disease, stage 3 unspecified Status: Acute Assessment and Plan: * Baseline creatinine appears to be 1.5 * Bicarb 20. Continue sodium bicarb tablets * Off IV fluids. * Urine studies Na 43, Urea 83, Cr 30.3 * FENa score is 1.8% looking like an ATN * Avoid nephrotoxic medications * trend labs and UOP * adjust therapy accordingly * Nephrology following and appreciate recommendations. Stable. (3) Renal tubular acidosis: Code(s): N25.89 - Other disorders resulting from impaired renal tubular function Status: Chronic Assessment and Plan: * On sodium bicarb tablets * spironolactone held * Trend labs * monitor renal function (4) Hypothyroid: Qualifiers: Hypothyroidism type: unspecified Qualified Code(s): E03.9 - Hypothyroidism, unspecified Code(s): E03.9 - Hypothyroidism, unspecified Status: Chronic Assessment and Plan: * TSH 26.500, T3 1.27, T4 1.16 * Continue home thyroid supplements. Previous TSH >100 and synthroid was resumed at that time. * Management per PCP outpatient. (5) JUANA (obstructive sleep apnea): Code(s): G47.33 - Obstructive sleep apnea (adult) (pediatric) Status: Acute Assessment and Plan: * Official sleep study has not been obtained * benefit from outpatient polysomnogram on discharge (6) Renal calculi: Code(s): N20.0 - Calculus of kidney Status: Acute Assessment and Plan: * CT of the abd/pel indicated bilateral stone involvement * Stent placed by urology on 05/23/22 * Trend urine output * Antibiotic therapy for possible UTI * Urology consulted and plan for stone removal and stent change scheduled for today 06/10/22. Hold lovenox for procedure. (7) Migraine: Qualifiers: Migraine type: unspecified Status migrainosus presence: without status migrainosus Intractability: not intractable Qualified Code(s): G43.909 - Migraine, unspecified, not intractable, without status migrainosus Code(s): G43.909 - Migraine, unspecified, not intractable, without status migrainosus Status: Resolved Assessment and Plan: * Resolved at this time (8) Diarrhea: Qualifiers: Diarrhea type: unspecified type Qualified Code(s): R19.7 - Diarrhea, unspecified Code(s): R19.7 - Diarrhea, unspecified Status: Acute Assessment and Plan: * accompanied with nausea * Probably related to antibiotics as she endorses it to be shortly after infusion * Changed antibiotics * Banatrol and increase probiotic TID * Zofran also available stable (9) Cong[place]
--- NOTE | 2022-06-10 11:10 | PM.IMPN ---
Progress Note: A&P Assessment and Plan (1) UTI (urinary tract infection): Code(s): N39.0 - Urinary tract infection, site not specified Status: Acute Assessment and Plan: Complicated UTI with presence of bilateral ureteral stents.? Urology consulted and plans for ureteral stone remove and replacement of stents. Urine culture with enterococcus species sensitive to ampicillin. Cefepime and Vancomycin changed to oral ampicillin for a total of 14 days (continue until 06/19/22) blood cultures negative to date Trend urine output and CBC. WBC normal and afebrile. (2) CKD (chronic kidney disease) stage 3, GFR 30-59 ml/min: Qualifiers: Chronic kidney disease stage 3 subtype: stage 3b (GFR 30-44) Qualified Code(s): N18.32 - Chronic kidney disease, stage 3b Code(s): N18.30 - Chronic kidney disease, stage 3 unspecified Status: Acute Assessment and Plan: Baseline creatinine appears to be 1.5 Bicarb 20. Continue sodium bicarb tablets Off IV fluids. Urine studies Na 43, Urea 83, Cr 30.3 FENa score is 1.8% looking like an ATN Avoid nephrotoxic medications trend labs and UOP adjust therapy accordingly Nephrology following and appreciate recommendations. Stable. (3) Renal tubular acidosis: Code(s): N25.89 - Other disorders resulting from impaired renal tubular function Status: Chronic Assessment and Plan: On sodium bicarb tablets spironolactone held Trend labs monitor renal function (4) Hypothyroid: Qualifiers: Hypothyroidism type: unspecified Qualified Code(s): E03.9 - Hypothyroidism, unspecified Code(s): E03.9 - Hypothyroidism, unspecified Status: Chronic Assessment and Plan: TSH 26.500, T3 1.27, T4 1.16 Continue home thyroid supplements. Previous TSH >100 and synthroid was resumed at that time. Management per PCP outpatient. (5) JUANA (obstructive sleep apnea): Code(s): G47.33 - Obstructive sleep apnea (adult) (pediatric) Status: Acute Assessment and Plan: Official sleep study has not been obtained benefit from outpatient polysomnogram on discharge (6) Renal calculi: Code(s): N20.0 - Calculus of kidney Status: Acute Assessment and Plan: CT of the abd/pel indicated bilateral stone involvement Stent placed by urology on 05/23/22 Trend urine output Antibiotic therapy for possible UTI Urology consulted and plan for stone removal and stent change scheduled for today 06/10/22. Hold lovenox for procedure. (7) Migraine: Qualifiers: Migraine type: unspecified Status migrainosus presence: without status migrainosus Intractability: not intractable Qualified Code(s): G43.909 - Migraine, unspecified, not intractable, without status migrainosus Code(s): G43.909 - Migraine, unspecified, not intractable, without status migrainosus Status: Resolved Assessment and Plan: Resolved at this time (8) Diarrhea: Qualifiers: Diarrhea type: unspecified type Qualified Code(s): R19.7 - Diarrhea, unspecified Code(s): R19.7 - Diarrhea, unspecified Status: Acute Assessment and Plan: accompanied with nausea Probably related to antibiotics as she endorses it to be shortly after infusion Changed antibiotics Banatrol and increase probiotic TID Zofran also available stable (9) Congestion of upper respiratory tract: Code(s): J39.8 - Other specified diseases of upper respiratory tract Status: Acute Assessment and Plan: Congestion with cough and drainage Claritin D added Trend symptoms Stable (10) Anxiety: Code(s): F41.9 - Anxiety disorder, unspecified Status: Acute Assessment and Plan: anxiety about having multiple medical problems Ativan added as she has been prescribed this in the past Trend mood Adjust accordingly Stabl
--- NOTE | 2022-06-10 13:28 | WPDHPUPDATE1 ---
History and Physical Update Update Date/Time: 06/10/22 13:28 History and Physical has been reviewed, including an updated exam of the patient. There are NO changes in the patient's condition. Risks, benefits, and alternatives have been discussed and questions answered. Patient agrees to proceed with procedure. Proceed with cysto right retrograde right ureteroscopy with stone extraction possible laser, stent exchange and removal of left ureteral stent
[2022-06-10] MEDS: LACTATED RINGERS 1,000 ML 30 ML IV CONT (14:25)
--- NOTE | 2022-06-10 14:42 | WPDANESEPPF ---
Anes - Initial Pre Proc Eval Procedure: Operation Date: 06/10/22 15:00 Proposed Procedures p Cystoscopy, Bilateral Retrograde Pyelogram, Right Ureteroscopy, Possible Right Stone Extraction, Right Stent Exchange, Left Stent Removal - Rhett Traylor MD Date/Time: 06/10/22 14:42 Surgeon: Xiomara Cross DO Pre Op Diagnosis: UTI, ureteral stents Patient Data Age: 56 Gender: F Height: 1.65 m Weight: 107 kg Last Vital Signs Temp 37.0 C 06/10/22 13:50 Pulse 80 06/10/22 13:50 Resp 15 06/10/22 13:50 BP 119/88 06/10/22 13:50 Pulse Ox 99 06/10/22 13:50 O2 Del Method Room Air 06/10/22 08:00 Allergies Allergy/AdvReac Type Severity Reaction Status Date / Time No Known Allergies Allergy Verified 06/06/22 07:34 Home Medications Medication Instructions Recorded Confirmed Type spironolactone 25 mg tablet 25 mg PO DAILY 11/10/19 06/06/22 History cholecalciferol (vitamin D3) 1,250 50,000 unit PO .Twice a month #6 04/11/22 06/06/22 Rx mcg (50,000 unit) capsule caps levothyroxine 112 mcg tablet 88 mcg PO HS 05/22/22 06/06/22 History (Unithroid) sodium bicarbonate See Rx Instructions .Route .COMPLEX 06/06/22 06/06/22 History Laboratory Tests 06/07/22 06/10/22 06/10/22 12:32 05:44 05:44 WBC 7.7 K/mm3 K/mm3 (4.5-10.0) RBC 4.76 M/mm3 M/mm3 (4.2-5.4) Hgb 13.9 g/dL g/dL (12.0-15.0) Hct 44.4 % % (37.0-47.0) MCV 93.3 fl fl (80-100) MCH 29.2 pg pg (26-34) MCHC 31.3 g/dl L g/dl (32-36) RDW 15.4 % H % (11.5-14.5) Plt Count 234 k/mm3 k/mm3 (150-375) MPV 10.3 fl fl (7.4-10.4) PT 13.3 Seconds Seconds (11.1-14.7) INR 1.1 APTT 30.0 SECONDS SECONDS (22.3-36.8) Sodium Potassium Chloride Carbon Dioxide Anion Gap BUN Creatinine Estim Creat Clear Calc Estimated GFR Glucose Calcium Urine Osmolality 158 mOsm/kg mOsm/kg (50-1200) 06/10/22 05:44 WBC RBC Hgb Hct MCV MCH MCHC RDW Plt Count MPV PT INR APTT Sodium 140 mmol/L mmol/L (137-145) Potassium 3.9 mmol/L mmol/L (3.4-5.0) Chloride 109 mmol/L H mmol/L (98-107) Carbon Dioxide 20 mmol/L L mmol/L (22-30) Anion Gap 11 mmol/L mmol/L (8-16) BUN 18 mg/dL H mg/dL (7-17) Creatinine 1.50 mg/dL H mg/dL (0.7-1.0) Estim Creat Clear Calc 46 ml/min ml/min Estimated GFR 36 L (59 - ) Glucose 106 mg/dL mg/dL (65-110) Calcium 8.8 mg/dL mg/dL (8.4-10.2) Urine Osmolality Patient hx anesthesia problems: none Family hx anesthesia problems: none Results Review: All pre-operative results and documents have been reviewed as part of the pre-operative evaluation. [facility] Past Medical History Medical History Anxiety Chronic kidney disease CKD (chronic kidney disease) stage 3, GFR 30-59 ml/min Edema Hypothyroid Kidney stones Nephrocalcinosis JUANA (obstructive sleep apnea) Patient denies being tested for sleep apnea Renal tubular acidosis Ureterolithiasis With history of prior nephrostomy tubes in 2014 Surgical History Surgical History History of breast augmentation History of tonsillectomy S/P ureteral stent placement Family History Family History Father Acute myocardial infarction Tobacco abuse Mother Cerebrovascular accident Sibling Thyroid activity decreased Other Family history of cardiovascular disease Hypertension Social History Social History (Reviewed 06/09/22 @ 18:27 by Nuria Ramirez
[2022-06-10] MEDS: ONDANSETRON INJ 4 MG/2 ML VIAL IV PUSH ×2 (14:45→17:05)
[2022-06-10] MEDS: ceFAZolin 2 GM/D5W 50 ML 2 GM/50 ML BAG IVPB (15:50)
--- NOTE | 2022-06-10 16:46 | W.PM.PROC2 ---
Procedure Note - Detailed Date of Procedure 06/10/22 Pre-op Diagnosis UTI, ureteral stents, right distal ureteral calculi, right renal calculus Post-op Diagnosis Same Procedure Performed Cystoscopy with removal of left ureteral stent, right ureteroscopy with stone extraction (5-6 ureteral stones), flexible ureteroscopy with holmium laser of right lower pole renal calculus, right retrograde pyelogram, right ureteral stent exchange 4.8 Congolese contour Surgeon Rhett Traylor MD Anesthesia General Description of Procedure Patient is taken to the operative suite correctly identified. Once anesthesia was obtained she was placed in dorsal lithotomy position and prepped and draped usual sterile fashion. Twenty-two Congolese scope inserted to the bladder. The left ureteral orifice was seen with the stent coming out of it. Using a grasper removed the left ureteral stent. The right ureteral stent was then grasped brought out to the meatus. Guidewire was inserted through the stent. A rigid ureteral scope was then placed into the distal ureter. She had several large fragments which we retrieved using an escape basket. Was a total 5-6 ureteral stones. We then took of mini flexible ureteral scope inserted all the way up to the renal pelvis and kidney. All calices were inspected. She has some large stone fragments in the right lower pole. Using a 273 micron fiber we dusted these stones. She does have some parenchymal calcification in the right lower pole calyx also this was not amenable to treatment at this time. Retrograde pyelogram was then performed. 4.8 Congolese contour stent was then placed with the proximal end coiled in the renal pelvis and the distal in the bladder. We left the string attached for the patient to remove the stent next week. She was taken recovery stable condition. Estimated Blood Loss 0 Urine Output 1,000 Drains Yes Packing No Pathology Yes Complications No immediate complications Condition Stable Disposition PACU
[2022-06-10] MEDS: fentaNYL CITRATE INJ (*CRX) 100 MCG/2 ML VIAL 25 MCG IV PUSH ×2 (17:04→17:37)
[2022-06-10] MEDS: diphenhydrAMINE HCl INJ 50 MG/ML VIAL 12.5 MG IV PUSH (18:02)
[2022-06-10] MEDS: SCOPOLAMINE 1.5 MG PATCH TRANSDERM (18:04)
[2022-06-10] MEDS: SODIUM BICARBONATE TAB 325 MG TABLET PO (20:24)
[2022-06-10] MEDS: ACETAMINOPHEN 500 MG TABLET 1000 MG PO (20:28)
[2022-06-11 00:05] VITALS: BP 128/74; PULSE 73; RESP 18; TEMP 36.3; O2SAT 97
[2022-06-11] MEDS: AMPICILLIN TRIHYDRATE 500 MG CAPSULE PO ×5 (00:09→23:54)
[2022-06-11 05:06] VITALS: BP 123/73; PULSE 69; RESP 18; TEMP 36.2; O2SAT 97
[2022-06-11 06:47] LABS: Hematocrit 42.3 % (37.0-47.0); Hemoglobin 13.7 g/dL (12.0-15.0); Mean Corpuscular HGB Conc 32.4 g/dl (32-36); Mean Corpuscular Hemoglobin 29.7 pg (26-34); Mean Corpuscular Volume 91.6 fl (80-100); Mean Platelet Volume 10.4 fl (7.4-10.4); Platelet Count Result 231 k/mm3 (150-375); Red Blood Count 4.62 M/mm3 (4.2-5.4); Red Cell Distribution Width 15.3 % (11.5-14.5)
[2022-06-11 06:56] LABS: Albumin Level 4.1 g/dL (3.5-5.1); Anion Gap 12 mmol/L (8-16); Blood Urea Nitrogen 18 mg/dL (7-17); Calcium 8.3 mg/dL (8.4-10.2); Carbon Dioxide 17 mmol/L (22-30); Chloride 111 mmol/L (98-107); Estimated CRCL calculation 46 ml/min; Estimated Glomerular Filt Rate 36; Glucose 132 mg/dL (65-110); Phosphorus 2.2 mg/dL (2.5-4.5); Potassium 3.7 mmol/L (3.4-5.0); Sodium 140 mmol/L (137-145)
--- NOTE | 2022-06-11 07:32 | WPDANESPN ---
Anes - Prog Note Post-Op Date/Time: 06/11/22 07:32 Cardiovascular status: normal Respiratory status: normal Airway patency: baseline Mental status: baseline Post-Op hydration status: normal Vital Signs: Last Vital Signs Temp 97.1 F L 06/11/22 05:06 Pulse 69 06/11/22 05:06 Resp 18 06/11/22 05:06 BP 123/73 06/11/22 05:06 Pulse Ox 97 06/11/22 05:06 O2 Del Method Room Air 06/10/22 20:00 O2 Flow Rate 8 06/10/22 17:25 Pain Score (VAS): 0 I/O: Intake & Output 06/10/22 06/10/22 06/11/22 15:59 23:59 07:59 Intake Total 0 1100 Output Total 2100 200 Balance -2100 900 Laboratory Tests 06/11/22 06:12 06/11/22 06:12 06/11/22 06/11/22 06:12 06:12 WBC 7.0 RBC 4.62 Hgb 13.7 Hct 42.3 MCV 91.6 MCH 29.7 MCHC 32.4 RDW 15.3 H Plt Count 231 MPV 10.4 Sodium 140 Potassium 3.7 Chloride 111 H Carbon Dioxide 17 L Anion Gap 12 BUN 18 H Creatinine 1.50 H Estim Creat Clear Calc 46 Estimated GFR 36 L Glucose 132 H Calcium 8.3 L Phosphorus 2.2 L Albumin 4.1 Microbiology 06/09/22 08:38 Clean Catch Midstream Urine Culture - Final Patient Feedback: Patient satisfied with anesthetic care.
[2022-06-11 08:00] VITALS: PULSE 69; RESP 18; O2SAT 97
--- NOTE | 2022-06-11 08:09 | WPDUROPN2 ---
Progress Note: A&P Assessment and Plan (1) Right ureteral stone: Code(s): N20.1 - Calculus of ureter Status: Acute Assessment and Plan: Status post left ureteral stent removal, right ureteroscopy with stone extraction of 5 ureteral stones, holmium laser of right renal calculi with stent exchange. Doing well overall. Continue with antibiotics. Patient will remove stent either Thursday or Thursday. Subjective Subjective Date/Time Seen: 06/11/22 08:09 Post Op day: 1 (Cysto with left stent removal, right ureteroscopy with stone extraction, lithotripsy of right renal calculi and right stent exchange) Principal diagnosis: Right ureteral and renal calculus Interval history: Feels slightly better today. Continue with antibiotics. When medically stable can be discharged home with antibiotics. Patient instructed to remove stent on Thursday or Thursday. Review of Systems Review of Systems: All systems reviewed & are unremarkable except as noted in HPI and below Exam Const: General: cooperative and comfortable Resp: Effort & Inspection: normal respiratory effort Cardio: Rate: regular rate Objective Data Vital Signs Vital Signs: Vital Signs - 24 hr 06/10/22 13:50 06/10/22 16:58 06/10/22 17:10 Temperature 37.0 C 36.4 C Pulse Rate 80 70 63 Respiratory Rate 15 12 10 L Blood Pressure 119/88 136/82 152/89 H Pulse Oximetry 99 98 99 Oxygen Delivery Simple Face Mask Simple Face Mask Oxygen Flow Rate 10 8 06/10/22 17:25 06/10/22 17:40 06/10/22 17:55 Temperature Pulse Rate 70 70 69 Respiratory Rate 12 14 14 Blood Pressure 153/97 H 154/95 H 158/89 H Pulse Oximetry 99 95 95 Oxygen Delivery Simple Face Mask Room Air Room Air Oxygen Flow Rate 8 06/10/22 18:10 06/10/22 20:30 06/10/22 20:00 Temperature 36.7 C Pulse Rate 68 68 Respiratory Rate 12 18 Blood Pressure 154/89 H 128/73 Pulse Oximetry 96 97 Oxygen Delivery Room Air Room Air Oxygen Flow Rate 06/11/22 00:05 06/10/22 18:35 06/10/22 18:50 Temperature 36.3 C L 35.7 C L 36.1 C L Pulse Rate 73 65 64 Respiratory Rate 18 20 20 Blood Pressure 128/74 120/76 117/66 Pulse Oximetry 97 97 98 Oxygen Delivery Oxygen Flow Rate 06/10/22 19:20 06/11/22 05:06 Temperature 36.6 C 36.2 C L Pulse Rate 77 69 Respiratory Rate 18 18 Blood Pressure 127/76 123/73 Pulse Oximetry 97 97 Oxygen Delivery Oxygen Flow Rate Intake/Output Intake/Output: Intake & Output 06/08/22 06/09/22 06/10/22 06/11/22 23:59 23:59 23:59 23:59 Intake Total 2504 2070 550 1100 Output Total 2125 2103 200 Balance 2504 55 -1553 900 Meds/Results Medications: Active Medications Generic Name Dose Route Start Last Admin Trade Name Freq PRN Reason Stop Dose Admin Acetaminophen 1,000 mg 06/07/22 06:10 06/10/22 20:28 Acetaminophen 500 Mg Tablet PO 1,000 mg Q6H PRN Administration Mild Pain (1-3) or Fever Hydrocodone Bitart/Acetaminophen 1 tab 06/09/22 10:12 06/09/22 12:38 Hydrocodone/Acetaminophen (*Crx) 5-325 Mg Tablet PO 1 tab Q4H PRN Administration Pain Rated 4-6 Ampicillin 500 mg 06/08/22 18:00 06/11/22 05:35 Ampicillin Trihydrate 500 Mg Capsule PO 06/19/22 17:59 500 mg Q6HR SUZANNE Administration Benzocaine 1 lozenge 06/06/22 23:56 06/07/22 00:59 Benzocaine/Menthol (*Bkc) 18 Ea Lozenge PO 1 lozenge PRN PRN Administration Sore Throat Enoxaparin Sodium 40 mg 06/06/22 09:00 06/09/22 09:53 Enoxaparin 40 Mg/0.4 Ml Syringe SUB-Q 40 mg DAILY SUZANNE Administration Fentanyl Citrate 25 mcg 06/10/22 11:47 06/10/22 17:37 Fentanyl Citrate Inj (*Crx) 100 Mcg/2 Ml Vial IV PUSH 25 mcg Q2M PRN Administration Pain Fluticasone Propionate 2 spray 06/07/22 09:00 06/10/22 18:47 Fluticasone Propionate 0.05% Na Spr 16 Gm Btl (*Bkc) NASAL Not Given QAM [facility] Home Med 1 each 06/07/22 06:30 06/11/22 05:35 Levothyroxine Sodium 88 Mcg (Tirosint) Tablet PO 1 each
[2022-06-11] MEDS: SACCHAROMYCES BOULARDII 250 MG CAPSULE PO ×2 (08:53→18:04)
[2022-06-11] MEDS: SODIUM BICARBONATE TAB 325 MG TABLET PO ×3 (08:53→18:04)
[2022-06-11] MEDS: ENOXAPARIN 40 MG/0.4 ML SYRINGE SUB-Q (08:54)
[2022-06-11] MEDS: FLUTICASONE PROPIONATE 0.05% NA SPR 16 GM BTL (*BKC) 2 SPRAY NASAL (08:54)
[2022-06-11] MEDS: LORATADINE/PSEUDOEPHEDRINE (*CRX) 10/240 MG TABLET ER 24 HR 1 TAB PO (08:56)
--- NOTE | 2022-06-11 08:58 | P.PNNP_ITS ---
Progress Note: A&P Assessment and Plan (1) LAURA (acute kidney injury): Code(s): N17.9 - Acute kidney failure, unspecified Status: Acute Assessment and Plan: * creatinine Baseline is 1.4-1.6. * presumably due to UTI(?) +/- volume depletion * evaluation to date: * CT of abd/pelvis with no obstruction (stone fragments and stents present) * UA suggestive of UTI * urine electrolytes are not prerenal * s/p trial of IVF hydration * her creatinine seems to be stabilizing at 1.5. This is at her baseline. * continue to follow the blood work. (2) Stage 3b chronic kidney disease: Code(s): N18.32 - Chronic kidney disease, stage 3b Status: Chronic Assessment and Plan: * baseline creatinine runs ~ 1.4 - 1.6mg/dl in the last year * secondary to medullary nephrocalcinosis and recurrent kidney stones * she has never tolerated potassium citrate. She says she wants to try this again as an outpatient. * If discharge please have patient get a renal panel done in a week and call me for the results. (3) UTI (urinary tract infection): Code(s): N39.0 - Urinary tract infection, site not specified Status: Acute Assessment and Plan: * Pyuria on admission. * Culture shows Enterococcus. * She is on Ampicillin since 06/08. * if sent home she can go on standard doses of amoxicillin. No adjustment necessary for gfr above 30. (4) Renal tubular acidosis: Code(s): N25.89 - Other disorders resulting from impaired renal tubular function Status: Chronic Assessment and Plan: * chronic issue * usually takes baking soda for treatment * on sodium bicarbonate * As an outputs elizabeth will switch to potassium citrate and hopefully she will tolerate this. (5) Nephrolithiasis: Code(s): N20.0 - Calculus of kidney Status: Acute Assessment and Plan: * as noted by history and intervention earlier this month * CT scan of abd/pelvis noted * Urology consulted * Procedure done yesterday.. Subjective Date/time seen: 06/11/22 08:58 Interval history: Patient is alert. She had surgery yesterday. Stones were removed from the distal ureter. Exam Narrative: General: WD/WN female in NAD Heart: normal S1 and S2; no rub Lungs: clear to auscultation Abdomen: soft, nontender, nondistended, positive bowel sounds Extremities: no edema Skin: No rash or subcu nodules Objective Data Vital Signs Vital Signs: Vital Signs - 24 hr 06/10/22 13:50 06/10/22 16:58 06/10/22 17:10 Temperature 37.0 C 36.4 C Pulse Rate 80 70 63 Respiratory Rate 15 12 10 L Blood Pressure 119/88 136/82 152/89 H Pulse Oximetry 99 98 99 Oxygen Delivery Simple Face Mask Simple Face Mask Oxygen Flow Rate 10 8 06/10/22 17:25 06/10/22 17:40 06/10/22 17:55 Temperature Pulse Rate 70 70 69 Respiratory Rate 12 14 14 Blood Pressure 153/97 H 154/95 H 158/89 H Pulse Oximetry 99 95 95 Oxygen Delivery Simple Face Mask Room Air Room Air Oxygen Flow Rate 8 06/10/22 18:10 06/10/22 20:30 06/10/22 20:00 Temperature 36.7 C Pulse Rate 68 68 Respiratory Rate 12 18 Blood Pressure 154/89 H 128/73 Pulse Oximetry 96 97 Oxy
--- NOTE | 2022-06-11 08:58 | PM.PNNEP ---
Progress Note: A&P Assessment and Plan (1) LAURA (acute kidney injury): Code(s): N17.9 - Acute kidney failure, unspecified Status: Acute Assessment and Plan: creatinine Baseline is 1.4-1.6. presumably due to UTI(?) +/- volume depletion evaluation to date: CT of abd/pelvis with no obstruction (stone fragments and stents present) UA suggestive of UTI urine electrolytes are not prerenal s/p trial of IVF hydration her creatinine seems to be stabilizing at 1.5. This is at her baseline. continue to follow the blood work. (2) Stage 3b chronic kidney disease: Code(s): N18.32 - Chronic kidney disease, stage 3b Status: Chronic Assessment and Plan: baseline creatinine runs ~ 1.4 - 1.6mg/dl in the last year secondary to medullary nephrocalcinosis and recurrent kidney stones she has never tolerated potassium citrate. She says she wants to try this again as an outpatient. If discharge please have patient get a renal panel done in a week and call me for the results. (3) UTI (urinary tract infection): Code(s): N39.0 - Urinary tract infection, site not specified Status: Acute Assessment and Plan: Pyuria on admission. Culture shows Enterococcus. She is on Ampicillin since 06/08. if sent home she can go on standard doses of amoxicillin. No adjustment necessary for gfr above 30. (4) Renal tubular acidosis: Code(s): N25.89 - Other disorders resulting from impaired renal tubular function Status: Chronic Assessment and Plan: chronic issue usually takes baking soda for treatment on sodium bicarbonate As an outputs elizabeth will switch to potassium citrate and hopefully she will tolerate this. (5) Nephrolithiasis: Code(s): N20.0 - Calculus of kidney Status: Acute Assessment and Plan: as noted by history and intervention earlier this month CT scan of abd/pelvis noted Urology consulted Procedure done yesterday.. Subjective Date/time seen: 06/11/22 08:58 Interval history: Patient is alert. She had surgery yesterday. Stones were removed from the distal ureter. Exam Narrative: General: WD/WN female in NAD Heart: normal S1 and S2; no rub Lungs: clear to auscultation Abdomen: soft, nontender, nondistended, positive bowel sounds Extremities: no edema Skin: No rash or subcu nodules Objective Data Vital Signs Vital Signs: Vital Signs - 24 hr 06/10/22 13:50 06/10/22 16:58 06/10/22 17:10 Temperature 37.0 C 36.4 C Pulse Rate 80 70 63 Respiratory Rate 15 12 10 L Blood Pressure 119/88 136/82 152/89 H Pulse Oximetry 99 98 99 Oxygen Delivery Simple Face Mask Simple Face Mask Oxygen Flow Rate 10 8 06/10/22 17:25 06/10/22 17:40 06/10/22 17:55 Temperature Pulse Rate 70 70 69 Respiratory Rate 12 14 14 Blood Pressure 153/97 H 154/95 H 158/89 H Pulse Oximetry 99 95 95 Oxygen Delivery Simple Face Mask Room Air Room Air Oxygen Flow Rate 8 06/10/22 18:10 06/10/22 20:30 06/10/22 20:00 Temperature 36.7 C Pulse Rate 68 68 Respiratory Rate 12 18 Blood Pressure 154/89 H 128/73 Pulse Oximetry 96 97 Oxygen Delivery Room Air Room Air Oxygen Flow Rate 06/11/22 00:05 06/10/22 18:35 06/10/22 18:50 Temperature 36.3 C L 35.7 C L 36.1 C L Pulse Rate 73 65 64 Respiratory Rate 18 20 20 Blood Pressure 128/74 120/76 117/66 Pulse Oximetry 97 97 98 Oxygen Delivery Oxygen Flow Rate 06/10/22 19:20 06/11/22 05:06 Temperature 36.6 C 36.2 C L Pulse Rate 77 69 Respiratory Rate 18 18 Blood Pressure 127/76 123/73 Pulse Oximetry 97 97 Oxygen Delivery Oxygen Flow Rate Intake/Output Intake/Output: Intake & Output 06/08/22 06/09/22 06/10/22 06/11/22 23:59 23:59 23:59 23:59 Intake Total 2504 2070 550 1100 Output Total 8045 2103 200 Balance 1395 -50 -1361 078 Meds/Results Medications: Active Medications Generic Name Dose
[2022-06-11] MEDS: LORazepam (*CRX) 0.5 MG TABLET PO (09:02)
--- NOTE | 2022-06-11 11:45 | PM.IMPN ---
Progress Note: A&P Assessment and Plan (1) UTI (urinary tract infection): Code(s): N39.0 - Urinary tract infection, site not specified Status: Acute Assessment and Plan: Complicated UTI with presence of bilateral ureteral stents.? Urology consulted and plans for ureteral stone remove and replacement of stents 06/10/22 Post op Day 1 Urine culture with enterococcus species sensitive to ampicillin. Cefepime and Vancomycin changed to oral ampicillin for a total of 14 days (continue until 06/19/22) blood cultures negative to date Trend urine output and CBC. WBC normal and afebrile. (2) CKD (chronic kidney disease) stage 3, GFR 30-59 ml/min: Qualifiers: Chronic kidney disease stage 3 subtype: stage 3b (GFR 30-44) Qualified Code(s): N18.32 - Chronic kidney disease, stage 3b Code(s): N18.30 - Chronic kidney disease, stage 3 unspecified Status: Acute Assessment and Plan: Current BUN/Cr 18/1.50 Baseline creatinine appears to be 1.5 Bicarb 20. Continue sodium bicarb tablets Off IV fluids. Urine studies Na 43, Urea 83, Cr 30.3 FENa score is 1.8% looking like an ATN Avoid nephrotoxic medications trend labs and UOP adjust therapy accordingly Nephrology following and appreciate recommendations. Stable. (3) Renal tubular acidosis: Code(s): N25.89 - Other disorders resulting from impaired renal tubular function Status: Chronic Assessment and Plan: On sodium bicarb tablets spironolactone held Trend labs monitor renal function (4) Hypothyroid: Qualifiers: Hypothyroidism type: unspecified Qualified Code(s): E03.9 - Hypothyroidism, unspecified Code(s): E03.9 - Hypothyroidism, unspecified Status: Chronic Assessment and Plan: TSH 26.500, T3 1.27, T4 1.16 Continue home thyroid supplements. Previous TSH >100 and synthroid was resumed at that time. Management per PCP outpatient. (5) JUANA (obstructive sleep apnea): Code(s): G47.33 - Obstructive sleep apnea (adult) (pediatric) Status: Acute Assessment and Plan: Official sleep study has not been obtained benefit from outpatient polysomnogram on discharge (6) Renal calculi: Code(s): N20.0 - Calculus of kidney Status: Acute Assessment and Plan: CT of the abd/pel indicated bilateral stone involvement Stent placed by urology on 05/23/22, replaced on 06/10/22 Trend urine output Antibiotic therapy continued for UTI Urology consulted and plan for stone removal and stent change performed on 06/10/22. Hold lovenox for procedure. (7) Migraine: Qualifiers: Migraine type: unspecified Status migrainosus presence: without status migrainosus Intractability: not intractable Qualified Code(s): G43.909 - Migraine, unspecified, not intractable, without status migrainosus Code(s): G43.909 - Migraine, unspecified, not intractable, without status migrainosus Status: Resolved Assessment and Plan: Resolved at this time (8) Diarrhea: Qualifiers: Diarrhea type: unspecified type Qualified Code(s): R19.7 - Diarrhea, unspecified Code(s): R19.7 - Diarrhea, unspecified Status: Acute Assessment and Plan: accompanied with nausea Probably related to antibiotics as she endorses it to be shortly after infusion Changed antibiotics Banatrol and increase probiotic TID Zofran also available stable (9) Congestion of upper respiratory tract: Code(s): J39.8 - Other specified diseases of upper respiratory tract Status: Acute Assessment and Plan: Congestion with cough and drainage Claritin D added Trend symptoms Stable (10) Anxiety: Code(s): F41.9 - Anxiety disorder, unspecified Status: Acute Assessment and Plan: anxiety about having multiple medical problems Ativan added
--- NOTE | 2022-06-11 11:45 | P.PNIM_ITS ---
Progress Note: A&P Assessment and Plan (1) UTI (urinary tract infection): Code(s): N39.0 - Urinary tract infection, site not specified Status: Acute Assessment and Plan: * Complicated UTI with presence of bilateral ureteral stents.? * Urology consulted and plans for ureteral stone remove and replacement of stents 06/10/22 * Post op Day 1 * Urine culture with enterococcus species sensitive to ampicillin. * Cefepime and Vancomycin changed to oral ampicillin for a total of 14 days (continue until 06/19/22) * blood cultures negative to date * Trend urine output and CBC. * WBC normal and afebrile. (2) CKD (chronic kidney disease) stage 3, GFR 30-59 ml/min: Qualifiers: Chronic kidney disease stage 3 subtype: stage 3b (GFR 30-44) Qualified Code(s): N18.32 - Chronic kidney disease, stage 3b Code(s): N18.30 - Chronic kidney disease, stage 3 unspecified Status: Acute Assessment and Plan: * Current BUN/Cr 18/1.50 * Baseline creatinine appears to be 1.5 * Bicarb 20. Continue sodium bicarb tablets * Off IV fluids. * Urine studies Na 43, Urea 83, Cr 30.3 * FENa score is 1.8% looking like an ATN * Avoid nephrotoxic medications * trend labs and UOP * adjust therapy accordingly * Nephrology following and appreciate recommendations. * Stable. (3) Renal tubular acidosis: Code(s): N25.89 - Other disorders resulting from impaired renal tubular function Status: Chronic Assessment and Plan: * On sodium bicarb tablets * spironolactone held * Trend labs * monitor renal function (4) Hypothyroid: Qualifiers: Hypothyroidism type: unspecified Qualified Code(s): E03.9 - Hypothyroidism, unspecified Code(s): E03.9 - Hypothyroidism, unspecified Status: Chronic Assessment and Plan: * TSH 26.500, T3 1.27, T4 1.16 * Continue home thyroid supplements. Previous TSH >100 and synthroid was resumed at that time. * Management per PCP outpatient. (5) JUANA (obstructive sleep apnea): Code(s): G47.33 - Obstructive sleep apnea (adult) (pediatric) Status: Acute Assessment and Plan: * Official sleep study has not been obtained * benefit from outpatient polysomnogram on discharge (6) Renal calculi: Code(s): N20.0 - Calculus of kidney Status: Acute Assessment and Plan: * CT of the abd/pel indicated bilateral stone involvement * Stent placed by urology on 05/23/22, replaced on 06/10/22 * Trend urine output * Antibiotic therapy continued for UTI * Urology consulted and plan for stone removal and stent change performed on 06/10/22. Hold lovenox for procedure. (7) Migraine: Qualifiers: Migraine type: unspecified Status migrainosus presence: without status migrainosus Intractability: not intractable Qualified Code(s): G43.909 - Migraine, unspecified, not intractable, without status migrainosus Code(s): G43.909 - Migraine, unspecified, not intractable, without status migrainosus Status: Resolved Assessment and Plan: * Resolved at this time (8) Diarrhea: Qualifiers: Diarrhea type: unspecified type Qualified Code(s): R19.7 - Diarrhea, unspecified Code(s): R19.7 - Diarrhea, unspecified Status: Acute Assessment and Plan: * accompanied with nausea * Probably related to antibiotics as she endorses it to be shortly after infusion
[2022-06-11 14:11] VITALS: BP 110/58; PULSE 62; RESP 16; TEMP 36.4; O2SAT 98
[2022-06-11] MEDS: ONDANSETRON INJ 4 MG/2 ML VIAL IV PUSH (18:08)
[2022-06-11] MEDS: ACETAMINOPHEN 500 MG TABLET 1000 MG PO (18:08)
[2022-06-11 22:09] VITALS: BP 111/70; PULSE 60; RESP 18; TEMP 37.1; O2SAT 99
[2022-06-12] MEDS: AMPICILLIN TRIHYDRATE 500 MG CAPSULE PO ×4 (05:39→23:49)
[2022-06-12 06:00] VITALS: BP 108/67; PULSE 55; RESP 17; TEMP 36.8; O2SAT 98
[2022-06-12 06:26] LABS: Hematocrit 42.7 % (37.0-47.0); Hemoglobin 13.6 g/dL (12.0-15.0); Mean Corpuscular HGB Conc 31.9 g/dl (32-36); Mean Platelet Volume 10.5 fl (7.4-10.4); Platelet Count Result 228 k/mm3 (150-375); Red Blood Count 4.69 M/mm3 (4.2-5.4); Red Cell Distribution Width 15.3 % (11.5-14.5); White Blood Count 7.1 K/mm3 (4.5-10.0)
[2022-06-12 06:42] LABS: Anion Gap 10 mmol/L (8-16); Blood Urea Nitrogen 14 mg/dL (7-17); Calcium 8.3 mg/dL (8.4-10.2); Carbon Dioxide 21 mmol/L (22-30); Chloride 112 mmol/L (98-107); Estimated CRCL calculation 44 ml/min; Estimated Glomerular Filt Rate 33; Glucose 107 mg/dL (65-110); Phosphorus 2.8 mg/dL (2.5-4.5); Potassium 3.7 mmol/L (3.4-5.0); Sodium 143 mmol/L (137-145)
--- NOTE | 2022-06-12 07:55 | P.PNNP_ITS ---
Progress Note: A&P Assessment and Plan (1) LAUAR (acute kidney injury): Code(s): N17.9 - Acute kidney failure, unspecified Status: Acute Assessment and Plan: * creatinine Baseline is 1.4-1.6. * presumably due to UTI(?) +/- volume depletion * evaluation to date: * CT of abd/pelvis with no obstruction (stone fragments and stents present) * UA suggestive of UTI * urine electrolytes are not prerenal * s/p trial of IVF hydration * her creatinine is at baseline. * discussed with patient. try otc potassium citrate starting at 1 bid after meals and inc from there. to be done as an outpt after amox is done. * continue to follow the blood work. (2) Stage 3b chronic kidney disease: Code(s): N18.32 - Chronic kidney disease, stage 3b Status: Chronic Assessment and Plan: * baseline creatinine runs ~ 1.4 - 1.6mg/dl in the last year * secondary to medullary nephrocalcinosis and recurrent kidney stones * she has never tolerated potassium citrate. She says she wants to try this again as an outpatient. * If discharge please have patient get a renal panel done in a week and call me for the results. (3) UTI (urinary tract infection): Code(s): N39.0 - Urinary tract infection, site not specified Status: Acute Assessment and Plan: * Pyuria on admission. * Culture shows Enterococcus. * She is on Ampicillin since 06/08. * if sent home she can go on standard doses of amoxicillin. No adjustment necessary for gfr above 30. (4) Renal tubular acidosis: Code(s): N25.89 - Other disorders resulting from impaired renal tubular function Status: Chronic Assessment and Plan: * chronic issue * usually takes baking soda for treatment * on sodium bicarbonate * will try tiny dose of potassium citrate and hopefully she will tolerate this. pt asking to change once off the antibiotic. (5) Nephrolithiasis: Code(s): N20.0 - Calculus of kidney Status: Acute Assessment and Plan: * as noted by history and intervention earlier this month * CT scan of abd/pelvis noted * Urology consulted * Procedure done yesterday.. Subjective Date/time seen: 06/12/22 07:55 Interval history: Patient is alert. She had surgery Thursday. She says she is she is afraid that she pulled on the string attached to her stent. Nursing has contacted Urology. Exam Narrative: General: WD/WN female in NAD Heart: normal S1 and S2; no rub o gallop Lungs: clear Abdomen: soft, nontender, nondistended, positive bowel sounds Extremities: no edema Skin: No rash Objective Data Vital Signs Vital Signs: Vital Signs - 24 hr 06/11/22 08:00 06/11/22 14:11 06/11/22 22:09 Temperature 36.4 C L 37.1 C Pulse Rate 69 62 60 Respiratory Rate 18 16 18 Blood Pressure 110/58 L 111/70 Pulse Oximetry 97 98 99 Oxygen Delivery Room Air 06/11/22 20:00 06/12/22 06:00 Temperature 36.8 C Pulse Rate 55 L Respiratory Rate 17 Blood Pressure 108/67 Pulse Oximetry 98 Oxygen Delivery Room Air Intake/Output Intake/Output: Intake & Output 06/09/22 06/10/22 06/11/22 06/12/22 23:59 23:59 23:59 23:59 Intake Total 2643.922.9271
--- NOTE | 2022-06-12 07:55 | PM.PNNEP ---
Progress Note: A&P Assessment and Plan (1) LAURA (acute kidney injury): Code(s): N17.9 - Acute kidney failure, unspecified Status: Acute Assessment and Plan: creatinine Baseline is 1.4-1.6. presumably due to UTI(?) +/- volume depletion evaluation to date: CT of abd/pelvis with no obstruction (stone fragments and stents present) UA suggestive of UTI urine electrolytes are not prerenal s/p trial of IVF hydration her creatinine is at baseline. discussed with patient. try otc potassium citrate starting at 1 bid after meals and inc from there. to be done as an outpt after amox is done. continue to follow the blood work. (2) Stage 3b chronic kidney disease: Code(s): N18.32 - Chronic kidney disease, stage 3b Status: Chronic Assessment and Plan: baseline creatinine runs ~ 1.4 - 1.6mg/dl in the last year secondary to medullary nephrocalcinosis and recurrent kidney stones she has never tolerated potassium citrate. She says she wants to try this again as an outpatient. If discharge please have patient get a renal panel done in a week and call me for the results. (3) UTI (urinary tract infection): Code(s): N39.0 - Urinary tract infection, site not specified Status: Acute Assessment and Plan: Pyuria on admission. Culture shows Enterococcus. She is on Ampicillin since 06/08. if sent home she can go on standard doses of amoxicillin. No adjustment necessary for gfr above 30. (4) Renal tubular acidosis: Code(s): N25.89 - Other disorders resulting from impaired renal tubular function Status: Chronic Assessment and Plan: chronic issue usually takes baking soda for treatment on sodium bicarbonate will try tiny dose of potassium citrate and hopefully she will tolerate this. pt asking to change once off the antibiotic. (5) Nephrolithiasis: Code(s): N20.0 - Calculus of kidney Status: Acute Assessment and Plan: as noted by history and intervention earlier this month CT scan of abd/pelvis noted Urology consulted Procedure done yesterday.. Subjective Date/time seen: 06/12/22 07:55 Interval history: Patient is alert. She had surgery Thursday. She says she is she is afraid that she pulled on the string attached to her stent. Nursing has contacted Urology. Exam Narrative: General: WD/WN female in NAD Heart: normal S1 and S2; no rub o gallop Lungs: clear Abdomen: soft, nontender, nondistended, positive bowel sounds Extremities: no edema Skin: No rash Objective Data Vital Signs Vital Signs: Vital Signs - 24 hr 06/11/22 08:00 06/11/22 14:11 06/11/22 22:09 Temperature 36.4 C L 37.1 C Pulse Rate 69 62 60 Respiratory Rate 18 16 18 Blood Pressure 110/58 L 111/70 Pulse Oximetry 97 98 99 Oxygen Delivery Room Air 06/11/22 20:00 06/12/22 06:00 Temperature 36.8 C Pulse Rate 55 L Respiratory Rate 17 Blood Pressure 108/67 Pulse Oximetry 98 Oxygen Delivery Room Air Intake/Output Intake/Output: Intake & Output 06/09/22 06/10/22 06/11/22 06/12/22 23:59 23:59 23:59 23:59 Intake Total 2070 550 2190 Output Total 2125 2103 1100 500 Balance -55 -1553 1090 -500 Meds/Results Medications: Active Medications Generic Name Dose Route Start Last Admin Trade Name Freq PRN Reason Stop Dose Admin Acetaminophen 1,000 mg 06/07/22 06:10 06/11/22 18:08 Acetaminophen 500 Mg Tablet PO 1,000 mg Q6H PRN Administration Mild Pain (1-3) or Fever Hydrocodone Bitart/Acetaminophen 1 tab 06/09/22 10:12 06/09/22 12:38 Hydrocodone/Acetaminophen (*Crx) 5-325 Mg Tablet PO 1 tab Q4H PRN Administration Pain Rated 4-6 Ampicillin 500 mg 06/08/22 18:00 06/12/22 05:39 Ampicillin Trihydrate 500 Mg Capsule PO 06/19/22 17:59 500 mg Q6HR SUZANNE Administration Benzocaine 1 lozenge 06/06/22 23:56 06/07/22 00:59 Benzoc
[2022-06-12 08:00] VITALS: PULSE 55; RESP 17; O2SAT 98
[2022-06-12] MEDS: SACCHAROMYCES BOULARDII 250 MG CAPSULE PO ×2 (09:10→18:11)
[2022-06-12] MEDS: SODIUM BICARBONATE TAB 325 MG TABLET PO ×3 (09:10→18:11)
[2022-06-12] MEDS: FLUTICASONE PROPIONATE 0.05% NA SPR 16 GM BTL (*BKC) 2 SPRAY NASAL (09:10)
[2022-06-12] MEDS: ENOXAPARIN 40 MG/0.4 ML SYRINGE SUB-Q (09:11)
--- NOTE | 2022-06-12 10:45 | P.PNIM_ITS ---
Progress Note: A&P Assessment and Plan (1) UTI (urinary tract infection): Code(s): N39.0 - Urinary tract infection, site not specified Status: Acute Assessment and Plan: * Complicated UTI with presence of bilateral ureteral stents.? * Urology consulted and plans for ureteral stone remove and replacement of stents 06/10/22 * Stent removed today due to the patient almost pulling it out and possibly dislodging it * Post op Day 2 * Urine culture with enterococcus species sensitive to ampicillin. * Cefepime and Vancomycin changed to oral ampicillin for a total of 14 days (continue until 06/19/22) * blood cultures negative to date * Trend urine output and CBC. * WBC normal and afebrile. (2) CKD (chronic kidney disease) stage 3, GFR 30-59 ml/min: Qualifiers: Chronic kidney disease stage 3 subtype: stage 3b (GFR 30-44) Qualified Code(s): N18.32 - Chronic kidney disease, stage 3b Code(s): N18.30 - Chronic kidney disease, stage 3 unspecified Status: Acute Assessment and Plan: * Current BUN/Cr 14/1.60 * Baseline creatinine appears to be 1.5 * Bicarb 20. Continue sodium bicarb tablets * Off IV fluids. * Urine studies Na 43, Urea 83, Cr 30.3 * FENa score is 1.8% looking like an ATN * Avoid nephrotoxic medications * trend labs and UOP * adjust therapy accordingly * Nephrology following and appreciate recommendations. * Stable. (3) Renal tubular acidosis: Code(s): N25.89 - Other disorders resulting from impaired renal tubular function Status: Chronic Assessment and Plan: * On sodium bicarb tablets * spironolactone held * Trend labs * monitor renal function (4) Hypothyroid: Qualifiers: Hypothyroidism type: unspecified Qualified Code(s): E03.9 - Hypothyroidism, unspecified Code(s): E03.9 - Hypothyroidism, unspecified Status: Chronic Assessment and Plan: * TSH 26.500, T3 1.27, T4 1.16 * Continue home thyroid supplements. Previous TSH >100 and synthroid was resumed at that time. * Management per PCP outpatient. (5) JUANA (obstructive sleep apnea): Code(s): G47.33 - Obstructive sleep apnea (adult) (pediatric) Status: Acute Assessment and Plan: * Official sleep study has not been obtained * benefit from outpatient polysomnogram on discharge (6) Renal calculi: Code(s): N20.0 - Calculus of kidney Status: Acute Assessment and Plan: * CT of the abd/pel indicated bilateral stone involvement * Stent placed by urology on 05/23/22, replaced on 06/10/22, removed 06/12/22 * Xray still shows multiple stones bilaterally * Trend urine output * Antibiotic therapy continued for UTI * Urology consulted and plan for stone removal and stent change performed on 06/10/22. Hold lovenox for procedure. (7) Migraine: Qualifiers: Migraine type: unspecified Status migrainosus presence: without status migrainosus Intractability: not intractable Qualified Code(s): G43.909 - Migraine, unspecified, not intractable, without status migrainosus Code(s): G43.909 - Migraine, unspecified, not intractable, without status migrainosus Status: Resolved Assessment and Plan: * Resolved at this time (8) Diarrhea: Qualifiers: Diarrhea type: unspecified type Qualified Code(s): R19.7 - Diarrhea, unspecified Code(s): R19.7 - Diarrhea, unspecified Stat
--- NOTE | 2022-06-12 10:45 | PM.IMPN ---
Progress Note: A&P Assessment and Plan (1) UTI (urinary tract infection): Code(s): N39.0 - Urinary tract infection, site not specified Status: Acute Assessment and Plan: Complicated UTI with presence of bilateral ureteral stents.? Urology consulted and plans for ureteral stone remove and replacement of stents 06/10/22 Stent removed today due to the patient almost pulling it out and possibly dislodging it Post op Day 2 Urine culture with enterococcus species sensitive to ampicillin. Cefepime and Vancomycin changed to oral ampicillin for a total of 14 days (continue until 06/19/22) blood cultures negative to date Trend urine output and CBC. WBC normal and afebrile. (2) CKD (chronic kidney disease) stage 3, GFR 30-59 ml/min: Qualifiers: Chronic kidney disease stage 3 subtype: stage 3b (GFR 30-44) Qualified Code(s): N18.32 - Chronic kidney disease, stage 3b Code(s): N18.30 - Chronic kidney disease, stage 3 unspecified Status: Acute Assessment and Plan: Current BUN/Cr 14/1.60 Baseline creatinine appears to be 1.5 Bicarb 20. Continue sodium bicarb tablets Off IV fluids. Urine studies Na 43, Urea 83, Cr 30.3 FENa score is 1.8% looking like an ATN Avoid nephrotoxic medications trend labs and UOP adjust therapy accordingly Nephrology following and appreciate recommendations. Stable. (3) Renal tubular acidosis: Code(s): N25.89 - Other disorders resulting from impaired renal tubular function Status: Chronic Assessment and Plan: On sodium bicarb tablets spironolactone held Trend labs monitor renal function (4) Hypothyroid: Qualifiers: Hypothyroidism type: unspecified Qualified Code(s): E03.9 - Hypothyroidism, unspecified Code(s): E03.9 - Hypothyroidism, unspecified Status: Chronic Assessment and Plan: TSH 26.500, T3 1.27, T4 1.16 Continue home thyroid supplements. Previous TSH >100 and synthroid was resumed at that time. Management per PCP outpatient. (5) JUANA (obstructive sleep apnea): Code(s): G47.33 - Obstructive sleep apnea (adult) (pediatric) Status: Acute Assessment and Plan: Official sleep study has not been obtained benefit from outpatient polysomnogram on discharge (6) Renal calculi: Code(s): N20.0 - Calculus of kidney Status: Acute Assessment and Plan: CT of the abd/pel indicated bilateral stone involvement Stent placed by urology on 05/23/22, replaced on 06/10/22, removed 06/12/22 Xray still shows multiple stones bilaterally Trend urine output Antibiotic therapy continued for UTI Urology consulted and plan for stone removal and stent change performed on 06/10/22. Hold lovenox for procedure. (7) Migraine: Qualifiers: Migraine type: unspecified Status migrainosus presence: without status migrainosus Intractability: not intractable Qualified Code(s): G43.909 - Migraine, unspecified, not intractable, without status migrainosus Code(s): G43.909 - Migraine, unspecified, not intractable, without status migrainosus Status: Resolved Assessment and Plan: Resolved at this time (8) Diarrhea: Qualifiers: Diarrhea type: unspecified type Qualified Code(s): R19.7 - Diarrhea, unspecified Code(s): R19.7 - Diarrhea, unspecified Status: Acute Assessment and Plan: accompanied with nausea Probably related to antibiotics as she endorses it to be shortly after infusion Changed antibiotics Banatrol and increase probiotic TID Zofran also available stable (9) Congestion of upper respiratory tract: Code(s): J39.8 - Other specified diseases of upper respiratory tract Status: Acute Assessment and Plan: Congestion with cough and drainage Claritin D added Trend symptoms Stable (10) Anxiety: Code(s
[2022-06-12 14:10] VITALS: BP 116/68; PULSE 67; RESP 16; TEMP 36.4; O2SAT 96
[2022-06-12] MEDS: ACETAMINOPHEN 500 MG TABLET 1000 MG PO (15:35)
[2022-06-12] MEDS: ONDANSETRON INJ 4 MG/2 ML VIAL IV PUSH (15:36)
--- NOTE | 2022-06-12 15:42 | WPDUROPN2 ---
Progress Note: A&P Assessment and Plan (1) Right ureteral stone: Code(s): N20.1 - Calculus of ureter Status: Acute Assessment and Plan: KUB shows 5mm proximal ureterals stone. After viewing the repeat KUB, the patient's dislodged stent, Dr. Traylor has advised me to pull her stent at the bedside. I remvoed it without difficulty, the patient tolerated it well. She will f/u in one month with a ELVA in the office with Dr. Traylor. Subjective Subjective Date/Time Seen: 06/12/22 15:42 POD #2 Cystoscopy with removal of left ureteral stent, right ureteroscopy with stone extraction (5-6 ureteral stones), flexible ureteroscopy with holmium laser of right lower pole renal calculus, right retrograde pyelogram, right ureteral stent exchange 4.8 Citizen Of [place] contour. Patient was complaining of possibly tugging at her stent that is taped to her abdomen with a string and having some pain and fearing that it may have been slightly pulled out. The hospitalist contacted us with repeat KUB results that shows: Right internal ureteral stent with distal aspect of the stent beyond the inferior margin of the radiograph and likely through the urethra. Post Op day: 2 Review of Systems Cardiovascular: Cardiovascular: Denies chest pain Respiratory: Respiratory: Reports no additional respiratory complaints Gastrointestinal: Gastrointestinal: Reports abdominal pain, Denies nausea and Denies vomiting Genitourinary: Genitourinary: Denies dysuria, Reports pelvic pain and Reports flank pain Exam Const: General: cooperative Cardio: Rate: regular rate GI: GI Palp: Yes Soft to palpation and Yes Tenderness to palpation present (GI) Back/Spine/Pelvis: Back: CVA tenderness Extrem: Right lower extremity: no edema Left lower extremity: no edema Objective Data Vital Signs Vital Signs: Vital Signs - 24 hr 06/11/22 22:09 06/11/22 20:00 06/12/22 06:00 Temperature 98.7 F 98.3 F Pulse Rate 60 55 L Respiratory Rate 18 17 Blood Pressure 111/70 108/67 Pulse Oximetry 99 98 Oxygen Delivery Room Air 06/12/22 08:00 06/12/22 14:10 Temperature 97.6 F Pulse Rate 55 L 67 Respiratory Rate 17 16 Blood Pressure 116/68 Pulse Oximetry 98 96 Oxygen Delivery Room Air Intake/Output Intake/Output: Intake & Output 06/09/22 06/10/22 06/11/22 06/12/22 23:59 23:59 23:59 23:59 Intake Total 2070 550 2190 360 Output Total 2581 2104 1100 500 Balance -55 -1553 1090 -140 Meds/Results Medications: Active Medications Generic Name Dose Route Start Last Admin Trade Name Freq PRN Reason Stop Dose Admin Acetaminophen 1,000 mg 06/07/22 06:10 06/12/22 15:35 Acetaminophen 500 Mg Tablet PO 1,000 mg Q6H PRN Administration Mild Pain (1-3) or Fever Hydrocodone Bitart/Acetaminophen 1 tab 06/09/22 10:12 06/09/22 12:38 Hydrocodone/Acetaminophen (*Crx) 5-325 Mg Tablet PO 1 tab Q4H PRN Administration Pain Rated 4-6 Ampicillin 500 mg 06/08/22 18:00 06/12/22 11:59 Ampicillin Trihydrate 500 Mg Capsule PO 06/19/22 17:59 500 mg Q6HR SUZANNE Administration Benzocaine 1 lozenge 06/06/22 23:56 06/07/22 00:59 Benzocaine/Menthol (*Bkc) 18 Ea Lozenge PO 1 lozenge PRN PRN Administration Sore Throat Enoxaparin Sodium 40 mg 06/06/22 09:00 06/12/22 09:11 Enoxaparin 40 Mg/0.4 Ml Syringe SUB-Q 40 mg DAILY SUZANNE Administration Fentanyl Citrate 25 mcg 06/10/22 11:47 06/10/22 17:37 Fentanyl Citrate Inj (*Crx) 100 Mcg/2 Ml Vial IV PUSH 25 mcg Q2M PRN Administration Pain Fluticasone Propionate 2 spray 06/07/22 09:00 06/12/22 09:10 Fluticasone Propionate 0.05% Na Spr 16 Gm Btl (*Bkc) NASAL 2 spray QAM SUZANNE Administration Home Med 1 each 06/07/22 06:30 06/12/22 05:39 Levothyroxine Sodium 88 Mcg (Tirosint) Tablet PO 1 each DAILY@0630 SUZANNE Administration Loratadine/Pseudoephedrine Sulfate 1 tab 06/08/22 11:25 06/12/22 08:43 Loratadine/Pseudoephedrine (*Crx)
[2022-06-12 21:45] VITALS: BP 119/71; PULSE 62; RESP 18; TEMP 36.2; O2SAT 99
[2022-06-13] MEDS: AMPICILLIN TRIHYDRATE 500 MG CAPSULE PO (05:52)
[2022-06-13 05:57] VITALS: BP 124/75; PULSE 66; RESP 18; TEMP 36.2; O2SAT 97
[2022-06-13 07:26] LABS: Hemoglobin 14.5 g/dL (12.0-15.0); Mean Corpuscular HGB Conc 32.2 g/dl (32-36); Mean Corpuscular Hemoglobin 29.7 pg (26-34); Mean Corpuscular Volume 92.2 fl (80-100); Mean Platelet Volume 10.4 fl (7.4-10.4); Platelet Count Result 271 k/mm3 (150-375); Red Blood Count 4.88 M/mm3 (4.2-5.4); Red Cell Distribution Width 15.6 % (11.5-14.5); White Blood Count 8.5 K/mm3 (4.5-10.0)
[2022-06-13 07:45] LABS: Anion Gap 11 mmol/L (8-16); Blood Urea Nitrogen 13 mg/dL (7-17); Calcium 8.7 mg/dL (8.4-10.2); Carbon Dioxide 19 mmol/L (22-30); Chloride 112 mmol/L (98-107); Estimated CRCL calculation 50 ml/min; Estimated Glomerular Filt Rate 39; Glucose 113 mg/dL (65-110); Potassium 3.7 mmol/L (3.4-5.0); Sodium 142 mmol/L (137-145)
[2022-06-13] MEDS: FLUTICASONE PROPIONATE 0.05% NA SPR 16 GM BTL (*BKC) 2 SPRAY NASAL (08:51)
[2022-06-13] MEDS: ONDANSETRON INJ 4 MG/2 ML VIAL IV PUSH (08:51)
[2022-06-13] MEDS: SACCHAROMYCES BOULARDII 250 MG CAPSULE PO ×2 (08:51→16:32)
[2022-06-13] MEDS: ENOXAPARIN 40 MG/0.4 ML SYRINGE SUB-Q (08:51)
[2022-06-13] MEDS: SODIUM BICARBONATE TAB 325 MG TABLET PO ×3 (08:51→16:32)
--- NOTE | 2022-06-13 09:15 | PM.IMPN ---
Progress Note: A&P Assessment and Plan (1) UTI (urinary tract infection): Code(s): N39.0 - Urinary tract infection, site not specified Status: Acute Assessment and Plan: Complicated UTI with presence of bilateral ureteral stents.? Urology consulted and plans for ureteral stone remove and replacement of stents 06/10/22 Stent removed today due to the patient almost pulling it out and possibly dislodging it Post op Day 3 Urine culture with enterococcus species sensitive to ampicillin. Changed antibiotic to augmentin blood cultures negative to date Trend urine output and CBC. WBC normal and afebrile. (2) CKD (chronic kidney disease) stage 3, GFR 30-59 ml/min: Qualifiers: Chronic kidney disease stage 3 subtype: stage 3b (GFR 30-44) Qualified Code(s): N18.32 - Chronic kidney disease, stage 3b Code(s): N18.30 - Chronic kidney disease, stage 3 unspecified Status: Acute Assessment and Plan: Current BUN/Cr 13/1.40 Baseline creatinine appears to be 1.5 Bicarb 20. Continue sodium bicarb tablets Off IV fluids. Urine studies Na 43, Urea 83, Cr 30.3 FENa score is 1.8% looking like an ATN Avoid nephrotoxic medications trend labs and UOP adjust therapy accordingly Nephrology following and appreciate recommendations. Stable. (3) Renal tubular acidosis: Code(s): N25.89 - Other disorders resulting from impaired renal tubular function Status: Chronic Assessment and Plan: On sodium bicarb tablets spironolactone held Trend labs monitor renal function (4) Hypothyroid: Qualifiers: Hypothyroidism type: unspecified Qualified Code(s): E03.9 - Hypothyroidism, unspecified Code(s): E03.9 - Hypothyroidism, unspecified Status: Chronic Assessment and Plan: TSH 26.500, T3 1.27, T4 1.16 Continue home thyroid supplements. Previous TSH >100 and synthroid was resumed at that time. Management per PCP outpatient. (5) JUANA (obstructive sleep apnea): Code(s): G47.33 - Obstructive sleep apnea (adult) (pediatric) Status: Acute Assessment and Plan: Official sleep study has not been obtained benefit from outpatient polysomnogram on discharge (6) Renal calculi: Code(s): N20.0 - Calculus of kidney Status: Acute Assessment and Plan: CT of the abd/pel indicated bilateral stone involvement Stent placed by urology on 05/23/22, replaced on 06/10/22, removed 06/12/22 Xray still shows multiple stones bilaterally Trend urine output Antibiotic therapy continued for UTI Urology consulted and plan for stone removal and stent change performed on 06/10/22. Hold lovenox for procedure. (7) Migraine: Qualifiers: Intractability: not intractable Migraine type: unspecified Status migrainosus presence: without status migrainosus Qualified Code(s): G43.909 - Migraine, unspecified, not intractable, without status migrainosus Code(s): G43.909 - Migraine, unspecified, not intractable, without status migrainosus Status: Resolved Assessment and Plan: Resolved at this time (8) Diarrhea: Qualifiers: Diarrhea type: unspecified type Qualified Code(s): R19.7 - Diarrhea, unspecified Code(s): R19.7 - Diarrhea, unspecified Status: Acute Assessment and Plan: accompanied with nausea Probably related to antibiotics as she endorses it to be shortly after infusion Changed antibiotics Banatrol and increase probiotic TID Zofran also available stable (9) Congestion of upper respiratory tract: Code(s): J39.8 - Other specified diseases of upper respiratory tract Status: Acute Assessment and Plan: Congestion with cough and drainage Claritin D added Trend symptoms Stable (10) Anxiety: Code(s): F41.9 - Anxiety disorder, unspecified Status: Acute
--- NOTE | 2022-06-13 09:15 | P.PNIM_ITS ---
Progress Note: A&P Assessment and Plan (1) UTI (urinary tract infection): Code(s): N39.0 - Urinary tract infection, site not specified Status: Acute Assessment and Plan: * Complicated UTI with presence of bilateral ureteral stents.? * Urology consulted and plans for ureteral stone remove and replacement of stents 06/10/22 * Stent removed today due to the patient almost pulling it out and possibly dislodging it * Post op Day 3 * Urine culture with enterococcus species sensitive to ampicillin. * Changed antibiotic to augmentin * blood cultures negative to date * Trend urine output and CBC. * WBC normal and afebrile. (2) CKD (chronic kidney disease) stage 3, GFR 30-59 ml/min: Qualifiers: Chronic kidney disease stage 3 subtype: stage 3b (GFR 30-44) Qualified Code(s): N18.32 - Chronic kidney disease, stage 3b Code(s): N18.30 - Chronic kidney disease, stage 3 unspecified Status: Acute Assessment and Plan: * Current BUN/Cr 13/1.40 * Baseline creatinine appears to be 1.5 * Bicarb 20. Continue sodium bicarb tablets * Off IV fluids. * Urine studies Na 43, Urea 83, Cr 30.3 * FENa score is 1.8% looking like an ATN * Avoid nephrotoxic medications * trend labs and UOP * adjust therapy accordingly * Nephrology following and appreciate recommendations. * Stable. (3) Renal tubular acidosis: Code(s): N25.89 - Other disorders resulting from impaired renal tubular function Status: Chronic Assessment and Plan: * On sodium bicarb tablets * spironolactone held * Trend labs * monitor renal function (4) Hypothyroid: Qualifiers: Hypothyroidism type: unspecified Qualified Code(s): E03.9 - Hypothyroidism, unspecified Code(s): E03.9 - Hypothyroidism, unspecified Status: Chronic Assessment and Plan: * TSH 26.500, T3 1.27, T4 1.16 * Continue home thyroid supplements. Previous TSH >100 and synthroid was resumed at that time. * Management per PCP outpatient. (5) JUANA (obstructive sleep apnea): Code(s): G47.33 - Obstructive sleep apnea (adult) (pediatric) Status: Acute Assessment and Plan: * Official sleep study has not been obtained * benefit from outpatient polysomnogram on discharge (6) Renal calculi: Code(s): N20.0 - Calculus of kidney Status: Acute Assessment and Plan: * CT of the abd/pel indicated bilateral stone involvement * Stent placed by urology on 05/23/22, replaced on 06/10/22, removed 06/12/22 * Xray still shows multiple stones bilaterally * Trend urine output * Antibiotic therapy continued for UTI * Urology consulted and plan for stone removal and stent change performed on 06/10/22. Hold lovenox for procedure. (7) Migraine: Qualifiers: Intractability: not intractable Migraine type: unspecified Status migrainosus presence: without status migrainosus Qualified Code(s): G43.909 - Migraine, unspecified, not intractable, without status migrainosus Code(s): G43.909 - Migraine, unspecified, not intractable, without status migrainosus Status: Resolved Assessment and Plan: * Resolved at this time (8) Diarrhea: Qualifiers: Diarrhea type: unspecified type Qualified Code(s): R19.7 - Diarrhea, unspecified Code(s): R19.7 - Diarrhea, unspecified Status: Acute Assessment and Plan: * accompanied with nause
--- NOTE | 2022-06-13 09:45 | PCNWS ---
Weekly nutritional screen. Patient is tolerating current diet with adequate intake: good appetite >75% of meals. No concerning weight loss reported. Per EMR, 7lbs gradual wt loss, 4 months. Receives banatrol plus supplement for diarrhea, which is pt states has improved. No nutritional needs at this time.
[2022-06-13] MEDS: METOCLOPRAMIDE HCL INJ 10 MG/2 ML VIAL IV PUSH (09:50)
--- NOTE | 2022-06-13 11:17 | P.PNNP_ITS ---
Progress Note: A&P Assessment and Plan (1) LAURA (acute kidney injury): Code(s): N17.9 - Acute kidney failure, unspecified Status: Acute Assessment and Plan: * creatinine Baseline is 1.4-1.6. * AK eye due to hydration issues, UTI, and possibly partial obstruction before the stent was placed. * Now creatinine is baseline. (2) Stage 3b chronic kidney disease: Code(s): N18.32 - Chronic kidney disease, stage 3b Status: Chronic Assessment and Plan: * baseline creatinine runs ~ 1.4 - 1.6mg/dl in the last year * secondary to medullary nephrocalcinosis and recurrent kidney stones * she has never tolerated potassium citrate. She says she wants to try this ag ain as an outpatient. * Will have her wait until she is off the antibiotics . Then we can start the potassium citrate. In the meantime she will continue her home made lemonade 1 qt per day, and her sodium bicarbonate ( baking soda ) 1/4tsp per day. (3) UTI (urinary tract infection): Code(s): N39.0 - Urinary tract infection, site not specified Status: Acute Assessment and Plan: * Pyuria on admission. * Culture shows Enterococcus. * She is on Ampicillin since 06/08. * She can go on standard doses of amoxicillin. No adjustment necessary for gfr above 30. (4) Renal tubular acidosis: Code(s): N25.89 - Other disorders resulting from impaired renal tubular function Status: Chronic Assessment and Plan: * chronic issue * usually takes baking soda for treatment * on sodium bicarbonate * CO2 mildly low still. She will continue as above. * will try tiny dose of potassium citrate and hopefully she will tolerate this. pt asking to change once off the antibiotic. (5) Nephrolithiasis: Code(s): N20.0 - Calculus of kidney Status: Acute Assessment and Plan: * as noted by history and intervention earlier this month * CT scan of abd/pelvis noted * Urology consulted * Procedure done yesterday.. Subjective Date/time seen: 06/13/22 11:17 Interval history: in the room with patient. eager for discharge. Patient is alert. She had surgery Thursday. stent was pulled out yesteday Exam Narrative: General: WD/WN female in NAD Heart: normal S1 and S2; no rub o gallop Lungs: clear Abdomen: soft, nontender, nondistended, positive bowel sounds Extremities: no edema Skin: No rash or sq nodules Objective Data Vital Signs Vital Signs: Vital Signs - 24 hr 06/12/22 14:10 06/12/22 20:00 06/12/22 21:45 Temperature 36.4 C 36.2 C L Pulse Rate 67 62 Respiratory Rate 16 18 Blood Pressure 116/68 119/71 Pulse Oximetry 96 99 Oxygen Delivery Room Air 06/13/22 05:57 Temperature 36.2 C L Pulse Rate 66 Respiratory Rate 18 Blood Pressure 124/75 Pulse Oximetry 97 Oxygen Delivery Intake/Output Intake/Output: Intake & Output 06/10/22 06/11/22 06/12/22 06/13/22 23:59 23:59 23:59 23:59 Intake Total 550 2190 1480 1190 Output Total 2103 1100 800 800 Balance -1553 1090 680 390 Meds/Results Medications: Active Medications Generic Name Dose Rout
--- NOTE | 2022-06-13 11:17 | PM.PNNEP ---
Progress Note: A&P Assessment and Plan (1) LAURA (acute kidney injury): Code(s): N17.9 - Acute kidney failure, unspecified Status: Acute Assessment and Plan: creatinine Baseline is 1.4-1.6. AK eye due to hydration issues, UTI, and possibly partial obstruction before the stent was placed. Now creatinine is baseline. (2) Stage 3b chronic kidney disease: Code(s): N18.32 - Chronic kidney disease, stage 3b Status: Chronic Assessment and Plan: baseline creatinine runs ~ 1.4 - 1.6mg/dl in the last year secondary to medullary nephrocalcinosis and recurrent kidney stones she has never tolerated potassium citrate. She says she wants to try this again as an outpatient. Will have her wait until she is off the antibiotics . Then we can start the potassium citrate. In the meantime she will continue her home made lemonade 1 qt per day, and her sodium bicarbonate ( baking soda ) 1/4tsp per day. (3) UTI (urinary tract infection): Code(s): N39.0 - Urinary tract infection, site not specified Status: Acute Assessment and Plan: Pyuria on admission. Culture shows Enterococcus. She is on Ampicillin since 06/08. She can go on standard doses of amoxicillin. No adjustment necessary for gfr above 30. (4) Renal tubular acidosis: Code(s): N25.89 - Other disorders resulting from impaired renal tubular function Status: Chronic Assessment and Plan: chronic issue usually takes baking soda for treatment on sodium bicarbonate CO2 mildly low still. She will continue as above. will try tiny dose of potassium citrate and hopefully she will tolerate this. pt asking to change once off the antibiotic. (5) Nephrolithiasis: Code(s): N20.0 - Calculus of kidney Status: Acute Assessment and Plan: as noted by history and intervention earlier this month CT scan of abd/pelvis noted Urology consulted Procedure done yesterday.. Subjective Date/time seen: 06/13/22 11:17 Interval history: in the room with patient. eager for discharge. Patient is alert. She had surgery Thursday. stent was pulled out yesteday Exam Narrative: General: WD/WN female in NAD Heart: normal S1 and S2; no rub o gallop Lungs: clear Abdomen: soft, nontender, nondistended, positive bowel sounds Extremities: no edema Skin: No rash or sq nodules Objective Data Vital Signs Vital Signs: Vital Signs - 24 hr 06/12/22 14:10 06/12/22 20:00 06/12/22 21:45 Temperature 36.4 C 36.2 C L Pulse Rate 67 62 Respiratory Rate 16 18 Blood Pressure 116/68 119/71 Pulse Oximetry 96 99 Oxygen Delivery Room Air 06/13/22 05:57 Temperature 36.2 C L Pulse Rate 66 Respiratory Rate 18 Blood Pressure 124/75 Pulse Oximetry 97 Oxygen Delivery Intake/Output Intake/Output: Intake & Output 06/10/22 06/11/22 06/12/22 06/13/22 23:59 23:59 23:59 23:59 Intake Total 550 2190 1480 1190 Output Total 2103 1100 800 800 Balance -1553 1090 680 390 Meds/Results Medications: Active Medications Generic Name Dose Route Start Last Admin Trade Name Freq PRN Reason Stop Dose Admin Acetaminophen 1,000 mg 06/07/22 06:10 06/12/22 15:35 Acetaminophen 500 Mg Tablet PO 1,000 mg Q6H PRN Administration Mild Pain (1-3) or Fever Hydrocodone Bitart/Acetaminophen 1 tab 06/09/22 10:12 06/09/22 12:38 Hydrocodone/Acetaminophen (*Crx) 5-325 Mg Tablet PO 1 tab Q4H PRN Administration Pain Rated 4-6 Ampicillin 500 mg 06/08/22 18:00 06/13/22 05:52 Ampicillin Trihydrate 500 Mg Capsule PO 06/19/22 17:59 500 mg Q6HR SUZANNE Administration Benzocaine 1 lozenge 06/06/22 23:56 06/07/22 00:59 Benzocaine/Menthol (*Bkc) 18 Ea Lozenge PO 1 lozenge PRN PRN Administration Sore Throat Enoxaparin Sodium 40 mg 06/06/22 09:00 06/13/22 08:51 Enoxaparin 40 Mg/0.4 Ml Syringe SUB-Q 40 mg
[2022-06-13 13:14] VITALS: BP 130/66; PULSE 59; RESP 16; TEMP 36.9; O2SAT 98
--- NOTE | 2022-06-13 14:58 | PCNSR ---
On 06/13/22, the student, Joni Gaston, provided care and completed [facility] on this patient. I have reviewed the student's documentation and agree with the findings.
[2022-06-13] MEDS: ACETAMINOPHEN 500 MG TABLET 1000 MG PO (15:09)
[2022-06-13] MEDS: FAMOTIDINE 20 MG/2 ML VIAL IV PUSH ×2 (15:10→20:06)
[2022-06-13] MEDS: LORazepam (*CRX) 0.5 MG TABLET PO (16:32)
[2022-06-13] MEDS: AMOXICILLIN/CLAVULANATE K 875-125 MG TAB 1 TABLET PO (20:06)
[2022-06-13 22:00] VITALS: BP 117/71; PULSE 64; RESP 18; TEMP 36.2; O2SAT 98
[2022-06-14] MEDS: LORazepam (*CRX) 0.5 MG TABLET PO ×2 (05:43→12:23)
[2022-06-14 06:00] VITALS: BP 133/74; PULSE 83; RESP 18; TEMP 35.9; O2SAT 97
[2022-06-14 06:52] LABS: Hematocrit 43.7 % (37.0-47.0); Hemoglobin 13.9 g/dL (12.0-15.0); Mean Corpuscular HGB Conc 31.8 g/dl (32-36); Mean Corpuscular Hemoglobin 29.1 pg (26-34); Mean Corpuscular Volume 91.6 fl (80-100); Mean Platelet Volume 10.4 fl (7.4-10.4); Platelet Count Result 265 k/mm3 (150-375); Red Blood Count 4.77 M/mm3 (4.2-5.4); Red Cell Distribution Width 15.2 % (11.5-14.5); White Blood Count 7.4 K/mm3 (4.5-10.0)
[2022-06-14 07:05] LABS: Anion Gap 10 mmol/L (8-16); Blood Urea Nitrogen 11 mg/dL (7-17); Calcium 8.6 mg/dL (8.4-10.2); Carbon Dioxide 23 mmol/L (22-30); Chloride 110 mmol/L (98-107); Estimated CRCL calculation 50 ml/min; Estimated Glomerular Filt Rate 39; Glucose 111 mg/dL (65-110); Potassium 3.7 mmol/L (3.4-5.0); Sodium 143 mmol/L (137-145)
[2022-06-14] MEDS: AMOXICILLIN/CLAVULANATE K 875-125 MG TAB 1 TABLET PO (08:36)
[2022-06-14] MEDS: LORATADINE/PSEUDOEPHEDRINE (*CRX) 10/240 MG TABLET ER 24 HR 1 TAB PO (08:36)
[2022-06-14] MEDS: SODIUM BICARBONATE TAB 325 MG TABLET PO ×3 (08:36→17:23)
[2022-06-14] MEDS: ENOXAPARIN 40 MG/0.4 ML SYRINGE SUB-Q (08:36)
[2022-06-14] MEDS: SACCHAROMYCES BOULARDII 250 MG CAPSULE PO ×2 (08:36→17:23)
[2022-06-14] MEDS: FLUTICASONE PROPIONATE 0.05% NA SPR 16 GM BTL (*BKC) 2 SPRAY NASAL (08:37)
--- NOTE | 2022-06-14 12:00 | P.PNNP_ITS ---
Progress Note: A&P Assessment and Plan (1) LAURA (acute kidney injury): Code(s): N17.9 - Acute kidney failure, unspecified Status: Acute Assessment and Plan: * creatinine Baseline is 1.4-1.6. * LAURA due to hydration issues, UTI, and possibly partial obstruction before the stent was placed. * Now creatinine is baseline at 1.4. (2) Stage 3b chronic kidney disease: Code(s): N18.32 - Chronic kidney disease, stage 3b Status: Chronic Assessment and Plan: * baseline creatinine runs ~ 1.4 - 1.6mg/dl in the last year * secondary to medullary nephrocalcinosis and recurrent kidney stones * she has never tolerated potassium citrate. She says she wants to try this again as an outpatient. * will start after antibiotics are done (3) UTI (urinary tract infection): Code(s): N39.0 - Urinary tract infection, site not specified Status: Acute Assessment and Plan: * Pyuria on admission. * Culture shows Enterococcus. * She is on Ampicillin since 06/08. * She can go on standard doses of amoxicillin. No adjustment necessary for gfr above 30. (4) Renal tubular acidosis: Code(s): N25.89 - Other disorders resulting from impaired renal tubular function Status: Chronic Assessment and Plan: * chronic issue * usually takes baking soda for treatment * on sodium bicarbonate * CO2 is now improved (5) Nephrolithiasis: Code(s): N20.0 - Calculus of kidney Status: Acute Assessment and Plan: * as noted by history and intervention earlier this month * CT scan of abd/pelvis noted * Urology consulted * Procedure done yesterday.. Subjective Date/time seen: 06/14/22 12:00 Interval history: Patient feels better today. She had nausea yesterday. She thinks it was the antibiotics. She talked with JOHN Zavala who suggested taking it after meals. Exam Narrative: General: WD/WN female in NAD Heart: normal S1 and S2; no rub o gallop Lungs: clear bilaterally Abdomen: soft, nontender, nondistended, positive bowel sounds Extremities: no edema or cyanosis Skin: No rash or sq nodules Objective Data Vital Signs Vital Signs: Vital Signs - 24 hr 06/13/22 13:14 06/13/22 20:00 06/13/22 22:00 Temperature 36.9 C 36.2 C L Pulse Rate 59 L 64 Respiratory Rate 16 18 Blood Pressure 130/66 117/71 Pulse Oximetry 98 98 Oxygen Delivery Room Air 06/14/22 06:00 06/14/22 08:00 Temperature 35.9 C L Pulse Rate 83 Respiratory Rate 18 Blood Pressure 133/74 Pulse Oximetry 97 Oxygen Delivery Room Air Intake/Output Intake/Output: Intake & Output 06/11/22 06/12/22 06/13/22 06/14/22 23:59 23:59 23:59 23:59 Intake Total 2190 1480 1980 750 Output Total 1100 800 800 Balance 3984 074 6129 750 Meds/Results Medications: Active Medications Generic Name Dose Route Start Last Admin Trade Name Freq PRN Reason Stop Dose Admin Acetaminophen 1,000 mg 06/07/22 06:10 06/13/22 15:09 Acetaminophen 500 Mg Tablet PO 1,000 mg Q6H PRN Administration Mild Pain (1-3) or Fever Hydrocodone Bitart/Acetaminophen
--- NOTE | 2022-06-14 12:00 | PM.PNNEP ---
Progress Note: A&P Assessment and Plan (1) LAURA (acute kidney injury): Code(s): N17.9 - Acute kidney failure, unspecified Status: Acute Assessment and Plan: creatinine Baseline is 1.4-1.6. LAURA due to hydration issues, UTI, and possibly partial obstruction before the stent was placed. Now creatinine is baseline at 1.4. (2) Stage 3b chronic kidney disease: Code(s): N18.32 - Chronic kidney disease, stage 3b Status: Chronic Assessment and Plan: baseline creatinine runs ~ 1.4 - 1.6mg/dl in the last year secondary to medullary nephrocalcinosis and recurrent kidney stones she has never tolerated potassium citrate. She says she wants to try this again as an outpatient. will start after antibiotics are done (3) UTI (urinary tract infection): Code(s): N39.0 - Urinary tract infection, site not specified Status: Acute Assessment and Plan: Pyuria on admission. Culture shows Enterococcus. She is on Ampicillin since 06/08. She can go on standard doses of amoxicillin. No adjustment necessary for gfr above 30. (4) Renal tubular acidosis: Code(s): N25.89 - Other disorders resulting from impaired renal tubular function Status: Chronic Assessment and Plan: chronic issue usually takes baking soda for treatment on sodium bicarbonate CO2 is now improved (5) Nephrolithiasis: Code(s): N20.0 - Calculus of kidney Status: Acute Assessment and Plan: as noted by history and intervention earlier this month CT scan of abd/pelvis noted Urology consulted Procedure done yesterday.. Subjective Date/time seen: 06/14/22 12:00 Interval history: Patient feels better today. She had nausea yesterday. She thinks it was the antibiotics. She talked with JOHN Zavala who suggested taking it after meals. Exam Narrative: General: WD/WN female in NAD Heart: normal S1 and S2; no rub o gallop Lungs: clear bilaterally Abdomen: soft, nontender, nondistended, positive bowel sounds Extremities: no edema or cyanosis Skin: No rash or sq nodules Objective Data Vital Signs Vital Signs: Vital Signs - 24 hr 06/13/22 13:14 06/13/22 20:00 06/13/22 22:00 Temperature 36.9 C 36.2 C L Pulse Rate 59 L 64 Respiratory Rate 16 18 Blood Pressure 130/66 117/71 Pulse Oximetry 98 98 Oxygen Delivery Room Air 06/14/22 06:00 06/14/22 08:00 Temperature 35.9 C L Pulse Rate 83 Respiratory Rate 18 Blood Pressure 133/74 Pulse Oximetry 97 Oxygen Delivery Room Air Intake/Output Intake/Output: Intake & Output 06/11/22 06/12/22 06/13/22 06/14/22 23:59 23:59 23:59 23:59 Intake Total 2190 1480 1980 750 Output Total 1100 800 800 Balance 8000 689 1867 750 Meds/Results Medications: Active Medications Generic Name Dose Route Start Last Admin Trade Name Freq PRN Reason Stop Dose Admin Acetaminophen 1,000 mg 06/07/22 06:10 06/13/22 15:09 Acetaminophen 500 Mg Tablet PO 1,000 mg Q6H PRN Administration Mild Pain (1-3) or Fever Hydrocodone Bitart/Acetaminophen 1 tab 06/09/22 10:12 06/09/22 12:38 Hydrocodone/Acetaminophen (*Crx) 5-325 Mg Tablet PO 1 tab Q4H PRN Administration Pain Rated 4-6 Amoxicillin/Clavulanate Potassium 1 tablet 06/13/22 21:00 06/14/22 08:36 Amoxicillin/Clavulanate K 875-125 Mg Tab PO 1 tablet Q12HR SUZANNE Administration Benzocaine 1 lozenge 06/06/22 23:56 06/07/22 00:59 Benzocaine/Menthol (*Bkc) 18 Ea Lozenge PO 1 lozenge PRN PRN Administration Sore Throat Enoxaparin Sodium 40 mg 06/06/22 09:00 06/14/22 08:36 Enoxaparin 40 Mg/0.4 Ml Syringe SUB-Q 40 mg DAILY SUZANNE Administration Famotidine 20 mg 06/13/22 13:05 06/13/22 20:06 Famotidine 20 Mg/2 Ml Vial IV PUSH 20 mg Q12HR SUZANNE Administration Fentanyl Citrate 25 mcg 06/10/22 11:47 06/10/22 17:37 Fentanyl Citrate Inj (*Crx) 100 Mcg/2 Ml Vial
[2022-06-14 13:15] LABS: Appearance Urine Clear (Clear); Bilirubin Urine Negative (Negative); Blood Urine 1+ (Negative); Color Urine Yellow (Yellow); Glucose Urine UA Negative (Negative); Ketones Urine Negative (Negative); Leukocyte Esterase Ur 1+ LEU/UL (Negative); Nitrate Urine Negative (Negative); Protein Urine Trace mg/dL (Negative); Specific Grav Ur 1.015 (1.001-1.035); Urobilinogen Urine 0.2 mg/dL (<2.0)
[2022-06-14 13:28] LABS: Bacteria Urine Trace /hpf; Mucus Urine Rare /lpf; Squamous Epithelial Cell Urine Occasional /hpf (Few)
[2022-06-14 14:00] VITALS: BP 111/72; PULSE 65; RESP 20; TEMP 37.3; O2SAT 98
[2022-06-14 14:03] LABS: Add Urine Microscopic? YES
--- NOTE | 2022-06-14 14:30 | PM.DS ---
DS: Admitting Diagnosis Discharge Date 06/14/22 1430 Admitting Diagnosis UTI, Bilateral Nephropathy DS: Discharge Diagnosis Discharge Diagnosis (1) UTI (urinary tract infection): Code(s): N39.0 - Urinary tract infection, site not specified Status: Acute Assessment and Plan: Complicated UTI with presence of bilateral ureteral stents.? Urology consulted and plans for ureteral stone remove and replacement of stents 06/10/22 Stent removed today due to the patient almost pulling it out and possibly dislodging it Post op Day 3 Urine culture with enterococcus species sensitive to ampicillin. Cefepime and Vancomycin changed to oral ampicillin for a total of 14 days (continue until 06/19/22) blood cultures negative to date Trend urine output and CBC. WBC normal and afebrile. (2) CKD (chronic kidney disease) stage 3, GFR 30-59 ml/min: Qualifiers: Chronic kidney disease stage 3 subtype: stage 3b (GFR 30-44) Qualified Code(s): N18.32 - Chronic kidney disease, stage 3b Code(s): N18.30 - Chronic kidney disease, stage 3 unspecified Status: Acute Assessment and Plan: Current BUN/Cr 13/1.40 Baseline creatinine appears to be 1.5 Bicarb 20. Continue sodium bicarb tablets Off IV fluids. Urine studies Na 43, Urea 83, Cr 30.3 FENa score is 1.8% looking like an ATN Avoid nephrotoxic medications trend labs and UOP adjust therapy accordingly Nephrology following and appreciate recommendations. Stable. (3) Renal tubular acidosis: Code(s): N25.89 - Other disorders resulting from impaired renal tubular function Status: Chronic Assessment and Plan: On sodium bicarb tablets spironolactone held Trend labs monitor renal function (4) Hypothyroid: Qualifiers: Hypothyroidism type: unspecified Qualified Code(s): E03.9 - Hypothyroidism, unspecified Code(s): E03.9 - Hypothyroidism, unspecified Status: Chronic Assessment and Plan: TSH 26.500, T3 1.27, T4 1.16 Continue home thyroid supplements. Previous TSH >100 and synthroid was resumed at that time. Management per PCP outpatient. (5) JUANA (obstructive sleep apnea): Code(s): G47.33 - Obstructive sleep apnea (adult) (pediatric) Status: Acute Assessment and Plan: Official sleep study has not been obtained benefit from outpatient polysomnogram on discharge (6) Renal calculi: Code(s): N20.0 - Calculus of kidney Status: Acute Assessment and Plan: CT of the abd/pel indicated bilateral stone involvement Stent placed by urology on 05/23/22, replaced on 06/10/22, removed 06/12/22 Xray still shows multiple stones bilaterally Trend urine output Antibiotic therapy continued for UTI Urology consulted and plan for stone removal and stent change performed on 06/10/22. Hold lovenox for procedure. (7) Migraine: Qualifiers: Intractability: not intractable Migraine type: unspecified Status migrainosus presence: without status migrainosus Qualified Code(s): G43.909 - Migraine, unspecified, not intractable, without status migrainosus Code(s): G43.909 - Migraine, unspecified, not intractable, without status migrainosus Status: Resolved Assessment and Plan: Resolved at this time (8) Diarrhea: Qualifiers: Diarrhea type: unspecified type Qualified Code(s): R19.7 - Diarrhea, unspecified Code(s): R19.7 - Diarrhea, unspecified Status: Acute Assessment and Plan: accompanied with nausea Probably related to antibiotics as she endorses it to be shortly after infusion Changed antibiotics Banatrol and increase probiotic TID Zofran also available stable (9) Congestion of upper respiratory tract: Code(s): J39.8 - Other specified diseases of upper respiratory tract Status: Acute Assessment and Plan:
--- NOTE | 2022-06-14 14:30 | P.DS_ITS ---
DS: Admitting Diagnosis Discharge Date 06/14/22 1430 Admitting Diagnosis UTI, Bilateral Nephropathy DS: Discharge Diagnosis Discharge Diagnosis (1) UTI (urinary tract infection): Code(s): N39.0 - Urinary tract infection, site not specified Status: Acute Assessment and Plan: * Complicated UTI with presence of bilateral ureteral stents.? * Urology consulted and plans for ureteral stone remove and replacement of stents 06/10/22 * Stent removed today due to the patient almost pulling it out and possibly dislodging it * Post op Day 3 * Urine culture with enterococcus species sensitive to ampicillin. * Cefepime and Vancomycin changed to oral ampicillin for a total of 14 days (continue until 06/19/22) * blood cultures negative to date * Trend urine output and CBC. * WBC normal and afebrile. (2) CKD (chronic kidney disease) stage 3, GFR 30-59 ml/min: Qualifiers: Chronic kidney disease stage 3 subtype: stage 3b (GFR 30-44) Qualified Code(s): N18.32 - Chronic kidney disease, stage 3b Code(s): N18.30 - Chronic kidney disease, stage 3 unspecified Status: Acute Assessment and Plan: * Current BUN/Cr 13/1.40 * Baseline creatinine appears to be 1.5 * Bicarb 20. Continue sodium bicarb tablets * Off IV fluids. * Urine studies Na 43, Urea 83, Cr 30.3 * FENa score is 1.8% looking like an ATN * Avoid nephrotoxic medications * trend labs and UOP * adjust therapy accordingly * Nephrology following and appreciate recommendations. * Stable. (3) Renal tubular acidosis: Code(s): N25.89 - Other disorders resulting from impaired renal tubular function Status: Chronic Assessment and Plan: * On sodium bicarb tablets * spironolactone held * Trend labs * monitor renal function (4) Hypothyroid: Qualifiers: Hypothyroidism type: unspecified Qualified Code(s): E03.9 - Hypothyroidism, unspecified Code(s): E03.9 - Hypothyroidism, unspecified Status: Chronic Assessment and Plan: * TSH 26.500, T3 1.27, T4 1.16 * Continue home thyroid supplements. Previous TSH >100 and synthroid was resumed at that time. * Management per PCP outpatient. (5) JUANA (obstructive sleep apnea): Code(s): G47.33 - Obstructive sleep apnea (adult) (pediatric) Status: Acute Assessment and Plan: * Official sleep study has not been obtained * benefit from outpatient polysomnogram on discharge (6) Renal calculi: Code(s): N20.0 - Calculus of kidney Status: Acute Assessment and Plan: * CT of the abd/pel indicated bilateral stone involvement * Stent placed by urology on 05/23/22, replaced on 06/10/22, removed 06/12/22 * Xray still shows multiple stones bilaterally * Trend urine output * Antibiotic therapy continued for UTI * Urology consulted and plan for stone removal and stent change performed on 06/10/22. Hold lovenox for procedure. (7) Migraine: Qualifiers: Intractability: not intractable Migraine type: unspecified Status migrainosus presence: without status migrainosus Qualified Code(s): G43.909 - Migraine, unspecified, not intractable, without status migrainosus Code(s): G43.909 - Migraine, unspecified, not intractable, without status migrainosus Status: Resolved Assessment and Plan: * Resolved at this time (8) Diarrhea: Qualifiers: Diarrhea type:
== END 2022-06-14 18:03 | disposition home or self-care (01) | DRG 660 ==
LOC: ANHED 06-06 01:15 → ANH3MEDSUR 06-06 08:44
PROVIDERS: Internal Medicine Nephrology; Nurse Practitioner Family; Urology; Admitting Provider Internal Medicine; Emergency Provider Emergency Medicine; PCP Family Medicine; Visit Provider Nurse Practitioner
PROC: 0T768DZ Dilation of Right Ureter with Intraluminal Device, Via Natural or Artificial Opening Endoscopic (ICD-10-PCS; CPT 52352; principal; 2022-06-10 15:00)
DX: N39.0 Urinary tract infection, site not specified (principal); N17.9 Acute kidney failure, unspecified; N20.2 Calculus of kidney with calculus of ureter; J39.8 Other specified diseases of upper respiratory tract; B95.2 Enterococcus as the cause of diseases classified elsewhere; Z96.0 Presence of urogenital implants; F32.A Depression, unspecified; F41.9 Anxiety disorder, unspecified; E03.9 Hypothyroidism, unspecified; G47.33 Obstructive sleep apnea (adult) (pediatric); N18.32 Chronic kidney disease, stage 3b; N25.89 Other disorders resulting from impaired renal tubular function; G43.909 Migraine, unspecified, not intractable, without status migrainosus; R19.7 Diarrhea, unspecified; R11.2 Nausea with vomiting, unspecified; Z79.899 Other long term (current) drug therapy
CPT/HCPCS: 36415; 74018; 74420; 80048; 80053; 80069; 81001; 82365; 82570; 83605; 83735; 83880; 83935; 84100; 84145; 84300; 84439; 84443; 84480; 84540; 85025; 85027; 85610; 85730; 87040; 87077; 87086; 87186; 88300; 93005; 96365; 96375; 99285; A9270; C1769; C2617; J0131; J0690; J0692; J1100; J1200; J1650; J1885; J2250; J2270; J2405; J2543; J2704; J2765; J3010; J3370; J7030; J7120; Q9966

== ENCOUNTER 2022-06-26 08:40 | Outpatient (CLI) | payer OTHER, SELFPAY ==
--- NOTE | ~2022-06-26 | XR_ITS ---
EXAMINATION: XR abdomen/kub 1V INDICATION: Left ureteral stone TECHNIQUE: Supine views of the abdomen were obtained on 2 radiographs. COMPARISON: 06/13/2022 FINDINGS: Bilateral medullary nephrocalcinosis is again noted. There are unchanged stones of the kidn eys measuring up to 17 mm on the left. No stones are identified along the expected courses of the ure ters or within the urinary bladder. There are phleboliths of the pelvis. The visualized lung bases ar e clear. IMPRESSION: 1. Stable bilateral nephrolithiasis and bilateral medullary nephrocalcinosis. Reviewed, dictated and finalized at location B.
== END 2022-06-26 08:41 | disposition home or self-care (01) ==
LOC: ANHIMG 08:41
PROVIDERS: PCP Family Medicine; Visit Provider Urology
DX: N20.1 Calculus of ureter (principal)
CPT/HCPCS: 74018

== ENCOUNTER 2022-06-28 21:52 | Observation (INO) | payer OTHER, SELFPAY ==
--- NOTE | ~2022-06-28 | CT_ITS ---
EXAMINATION: CT abdomen pelvis w con DATE: 06/29/2022 00:12 INDICATION: Left flank pain. Hematuria. History of UTI. TECHNIQUE: Computed tomography (CT) of the abdomen and pelvis was performed with 100 cc Omnipaque 350 intravenous contrast. The dose-length product was 1521.76 mGy-cm. Automated exposure control and ite rative reconstruction technique were employed. COMPARISON: CT dated 06/04/2022. FINDINGS: Interval development of patchy bibasilar infiltrates, some of which have a nodular appearan ce in the right lower lobe, image 12 and 5. Findings most likely pneumonia. Heart size normal. No sig nificant pleural or pericardial effusion. Heart size normal. Fatty infiltration of the liver. There i s a small subcentimeter hypodensity of the right hepatic lobe, most likely benign. The spleen, pancre as, adrenal glands are unremarkable. There is mild hydronephrosis bilaterally. There is a 2 mm distal left ureteral stone just proximal to the UVJ. There is bilateral renal atrophy. There are coarse medullary calcifications bilaterally. The spleen, pancreas, adrenal glands are unremarkable. Gallbladder is present. Small fat-containing u mbilical hernia. Nonobstructive bowel pattern. IMPRESSION: 1. Distal left ureteral stone measuring 2 mm just proximal to the UVJ. Mild bilateral hydronephrosis. 2: Coarse medullary calcifications bilaterally with renal atrophy, compatible with medullary nephroca lcinosis. 3: Interval development of patchy bilateral infiltrates of the lower lungs, some of which have a nod ular configuration. These are likely infectious/inflammatory, although follow-up examination recommen ded to ensure resolution. Reviewed, dictated and finalized at location A. IMPRESSION: 1. Distal left ureteral stone measuring 2 mm just proximal to the UVJ. Mild naresh ateral hydronephrosis. 2: Coarse medullary calcifications bilaterally with renal atrophy, compatible w ith medullary nephrocalcinosis. 3: Interval development of patchy bilateral infiltrates of the lower lungs, so me of which have a nodular configuration. These are likely infectious/inflammat ory, although follow-up examination recommended to ensure resolution.
--- NOTE | ~2022-06-28 | XR_ITS ---
EXAMINATION: XR stent kub - surgery DATE: 06/29/2022 09:50 INDICATION: Left internal ureteral stent placement TECHNIQUE: Fluoroscopic images from a left internal ureteral stent placement are submitted for review . 8 seconds of fluoroscopy time. 3 fluoroscopic images. FINDINGS: There is a left double-J internal ureteral stent projecting in expected position, with proximal Freer loop at the level of the renal pelvis and distal loop in the pelvis within the bladder lumen. IMPRESSION: 1. Left internal ureteral stent placement. Please refer to real-time procedural findings for detail s. Reviewed, dictated and finalized at location A. IMPRESSION: 1. Left internal ureteral stent placement. Please refer to real-time procedur al findings for details.
[2022-06-28 22:16] LABS: Add Urine Microscopic? YES; Appearance Urine Clear (Clear); Bacteria Urine Trace /hpf; Bilirubin Urine Negative (Negative); Blood Urine Negative (Negative); Color Urine Amber (Yellow); Glucose Urine UA Negative (Negative); Ketones Urine Negative (Negative); Leukocyte Esterase Ur 1+ LEU/UL (Negative); Mucus Urine Rare /lpf; Nitrate Urine Negative (Negative); Protein Urine Negative (Negative); Specific Grav Ur 1.008 (1.001-1.035); Squamous Epithelial Cell Urine Occasional /hpf (Few); Urobilinogen Urine Negative mg/dL (<2.0)
[2022-06-28 22:32] VITALS: BP 130/80; PULSE 67; RESP 18; TEMP 36.8; O2SAT 99
[2022-06-28 23:22] LABS: Basophils Percent Auto 0.4 % (0.2-1.2); Eosinophils Absolute Auto 0.3 K/mm3 (0-0.3); Eosinophils Percent Auto 2.5 % (0-4.4); Hemoglobin 13.6 g/dL (12.0-15.0); Immature Granulocyte Absolute 0.05 K/mm3 (0.00-0.031); Immature Granulocyte Percent A 0.4 % (0-0.5); Lymphocytes Absolute Auto 2.04 K/mm3 (0.9-3.2); Mean Corpuscular HGB Conc 32.4 g/dl (32-36); Mean Corpuscular Hemoglobin 29.3 pg (26-34); Mean Corpuscular Volume 90.5 fl (80-100); Mean Platelet Volume 9.9 fl (7.4-10.4); Monocytes Absolute Auto 1.2 K/mm3 (0.1-0.6); Monocytes Percent Auto 10.7 % (2.6-8.5); Neutrophils Absolute Auto 7.7 K/mm3 (1.3-6.7); Platelet Count Result 295 k/mm3 (150-375); Red Blood Count 4.64 M/mm3 (4.2-5.4); Red Cell Distribution Width 14.3 % (11.5-14.5); White Blood Count 11.3 K/mm3 (4.5-10.0)
[2022-06-28 23:27] VITALS: BP 129/85; PULSE 61; RESP 16; O2SAT 99
--- NOTE | 2022-06-28 23:27 | ED.FEMALEGU ---
HPI - Female Genitourinary General Chief complaint: Urogenital-Female <SO Montiel Last Filed: 06/29/22 02:39> Stated complaint: L Flank pain, feels unwell <SO Montiel Last Filed: 06/29/22 02:39> Time Seen by Provider: 06/28/22 23:14 <SO Montiel Last Filed: 06/29/22 02:39> History of Present Illness HPI Narrative: 56-year-old female here for evaluation of left flank pain, subjective fevers at home for the past 2 days. Patient has a history of kidney stones with stent placement in addition to renal tubular acidosis; she was recently hospitalized at [facility] at the end of May for 9 days due to complicated UTI in the setting of stents, underwent urologic consultation, had her ureteral stents replaced and subsequently removed. She was discharged, was feeling improved, but about 3 days ago she began to develop some urinary symptoms including urgency and frequency. She saw her primary care doctor yesterday who diagnosed her with UTI, put her on Macrobid, the patient denies improvement of her symptoms. Tonight she developed some left flank pain and subjective fevers which caused her to come to the ED. Denies any nausea, vomiting, cough, chest pain or shortness of breath, upper respiratory symptoms. <SO Montiel Last Filed: 06/29/22 02:39> Related Data Home medications: Home Medications Medication Instructions Recorded Confirmed spironolactone 25 mg tablet 25 mg PO DAILY 11/10/19 06/23/22 levothyroxine 112 mcg tablet 88 mcg PO HS 05/22/22 06/23/22 (Unithroid) sodium bicarbonate See Rx Instructions .Route .COMPLEX 06/06/22 06/23/22 <SO Montiel Last Filed: 06/29/22 02:39> Allergies/Adverse reactions: Allergies Allergy/AdvReac Type Severity Reaction Status Date / Time No Known Allergies Allergy Verified 06/29/22 03:25 <OS Montiel Last Filed: 06/29/22 02:39> Review of Systems Review of Systems: Gen.: Denies fevers or chills Eyes: Denies eye pain or visual change ENT: Denies congestion Respiratory: Denies shortness of breath or cough CV: Denies chest pain or palpitations GI: Denies abdominal pain nausea, emesis or diarrhea denies burning, urgency, frequency or hematuria Musculoskeletal: Denies back pain or muscle pain Neuro: Denies numbness, tingling, weakness or focal weakness Skin: Denies rash Except as documented, all other systems reviewed and negative <Corin Lee PA-C - Last Filed: 06/29/22 02:39> [facility] Past Medical History Medical History: Medical History Anxiety BMI 39.0-39.9,adult Chronic kidney disease CKD (chronic kidney disease) stage 3, GFR 30-59 ml/min Edema Hypothyroid Kidney stones Nephrocalcinosis JUANA (obstructive sleep apnea) Patient denies being tested for sleep apnea Renal tubular acidosis Ureterolithiasis With history of prior nephrostomy tubes in 2014 <Corin Lee PA-C - Last Filed: 06/29/22 02:39> Surgical History Surgical History: Surgical History History of breast augmentation History of tonsillectomy S/P ureteral stent placement <Corin Lee PA-C - Last Filed: 06/29/22 02:39> Family History Family History: Family History Father Acute myocardial infarction Tobacco abuse Mother Cerebrovascular accident Sibling Thyroid activity decreased Other Family history of cardiovascular disease Hypertension <Corin Lee PA-C - Last Filed: 06/29/22 02:39> Social History Social History: Social History Social History: She has been since 1982. Smoking status: Never smoker Second hand tobacco smoke exposure:
[2022-06-28 23:35] LABS: Alanine Aminotransferase 33 U/L (6-35); Albumin Level 4.5 g/dL (3.5-5.1); Alkaline Phosphatase 62 U/L (38-126); Anion Gap 10 mmol/L (8-16); Aspartate Amino Transferase 34 U/L (14-36); Bilirubin,Total 0.5 mg/dL (0.2-1.3); Blood Urea Nitrogen 13 mg/dL (7-17); Calcium 9.3 mg/dL (8.4-10.2); Carbon Dioxide 22 mmol/L (22-30); Chloride 108 mmol/L (98-107); Estimated CRCL calculation 49 ml/min; Estimated Glomerular Filt Rate 39; Glucose 123 mg/dL (65-110); Potassium 3.5 mmol/L (3.4-5.0); Sodium 140 mmol/L (137-145)
[2022-06-29] VITALS (11 sets, daily range): BP systolic 104–142; BP diastolic 53–79; PULSE 55–90; RESP 11–20; TEMP 35.7–37.1; O2SAT 94–100; BMI 39.5
[2022-06-29] MEDS: SODIUM CHLORIDE 0.9% IV 1,000 ML 999 ML IV CONT (01:28)
[2022-06-29] MEDS: ONDANSETRON INJ 4 MG/2 ML VIAL IV PUSH (01:28)
--- NOTE | 2022-06-29 03:06 | ADMGEN ---
This patient, Danyell Wong, was admitted to Medical Room 342-01. Patient/family oriented to hospital policies and general routines including ID bracelet, bed and alarms, visiting hours, pain management, procedures, bathroom and other care routines, personal items, smoking policy, room service/diet, and visiting hours. Information on how to activate the Rapid Response Team has been discussed. Patient/Family are encouraged to report perceived risks to care and to ask questions if they do not understand what they are told or what they should do.
--- NOTE | 2022-06-29 07:29 | WPDANESEPP ---
Anes - Eval Pre Procedure Procedure: Cysto, left stent placement Date/Time: 06/29/22 07:29 Surgeon: Dr. Vaughan Preop Diagnosis: Left Ureteral Calculus Pre Op Diagnosis: kidney stone, uti Patient Data Age: 56 Gender: F Height: 1.65 m Weight: 107.8 kg Last Vital Signs Temp 97.9 F 06/29/22 04:37 Pulse 55 L 06/29/22 04:37 Resp 18 06/29/22 04:37 BP 104/53 L 06/29/22 04:37 Pulse Ox 97 06/29/22 04:37 O2 Del Method Room Air 06/28/22 22:32 Allergies Allergy/AdvReac Type Severity Reaction Status Date / Time No Known Allergies Allergy Verified 06/29/22 03:25 Home Medications Medication Instructions Recorded Confirmed Type spironolactone 25 mg tablet 25 mg PO DAILY 11/10/19 06/29/22 History cholecalciferol (vitamin D3) 1,250 50,000 unit PO .Twice a month #6 04/11/22 06/29/22 Rx mcg (50,000 unit) capsule caps sodium bicarbonate See Rx Instructions .Route .COMPLEX 06/06/22 06/29/22 History levothyroxine 88 mcg capsule 88 mcg PO DAILY 06/29/22 06/29/22 History (Tirosint) lorazepam 0.5 mg tablet 0.5 mg PO TID PRN Anxiety 06/29/22 06/29/22 History Laboratory Tests 06/28/22 06/28/22 06/28/22 22:03 23:11 23:11 WBC 11.3 K/mm3 H K/mm3 (4.5-10.0) RBC 4.64 M/mm3 M/mm3 (4.2-5.4) Hgb 13.6 g/dL g/dL (12.0-15.0) Hct 42.0 % % (37.0-47.0) MCV 90.5 fl fl (80-100) MCH 29.3 pg pg (26-34) MCHC 32.4 g/dl g/dl (32-36) RDW 14.3 % % (11.5-14.5) Plt Count 295 k/mm3 k/mm3 (150-375) MPV 9.9 fl fl (7.4-10.4) Immature Gran % (Auto) 0.4 % % (0-0.5) Neut % (Auto) 68.0 % % (45.5-73.1) Lymph % (Auto) 18.0 % L % (18.3-44.2) Hickman % (Auto) 10.7 % H % (2.6-8.5) Eos % (Auto) 2.5 % % (0-4.4) Baso % (Auto) 0.4 % % (0.2-1.2) Lymph # (Auto) 2.04 K/mm3 K/mm3 (0.9-3.2) Hickman # (Auto) 1.2 K/mm3 H K/mm3 (0.1-0.6) Eos # (Auto) 0.3 K/mm3 K/mm3 (0-0.3) Baso # (Auto) 0.0 K/mm3 K/mm3 (0.0-0.1) Abs Immat Gran (auto) 0.05 K/mm3 H K/mm3 (0.00-0.031) Absolute Neuts (auto) 7.7 K/mm3 H K/mm3 (1.3-6.7) Absolute Nucleated RBC 0.0 K/mm3 K/mm3 (0.0-0.012) Nucleated RBC % 0.0 % % (0.0-0.2) Sodium 140 mmol/L mmol/L (137-145) Potassium 3.5 mmol/L mmol/L (3.4-5.0) Chloride 108 mmol/L H mmol/L (98-107) Carbon Dioxide 22 mmol/L mmol/L (22-30) Anion Gap 10 mmol/L mmol/L (8-16) BUN 13 mg/dL mg/dL (7-17) Creatinine 1.40 mg/dL H mg/dL (0.7-1.0) Estim Creat Clear Calc 49 ml/min ml/min Estimated GFR 39 L (59 - ) Glucose 123 mg/dL H mg/dL (65-110) Calcium 9.3 mg/dL mg/dL (8.4-10.2) Total Bilirubin 0.5 mg/dL mg/dL (0.2-1.3) AST 34 U/L U/L (14-36) ALT 33 U/L U/L (6-35) Alkaline Phosphatase 62 U/L U/L (38-126) Total Protein 8.0 g/dL g/dL (6.3-8.2) Albumin 4.5 g/dL g/dL (3.5-5.1) Urine Color Priscila (Yellow) Urine Appearance Clear (Clear) Urine pH 7.0 (5.0-9.0) Ur Specific [place] 1.008 (1.001-1.035) Urine Protein Negative mg/dL mg/dL (Negative) Urine Glucose (UA) Negative mg/dL mg/dL (Negative) Urine Ketones Negative mg/dL mg/dL (Negative) Ur Blood (Man) Negative (Negative) Urine Nitrate Negative (Negative) Urine Bilirubin Negative (Negative) Urine Urobilinogen Negative mg/dL mg/dL (<2.0) Leukocyte Esterase Rfl 1+ ANNAMARIA/UL H ANNAMARIA/UL (Negative) Urine RBC 3-5 /hpf H /hpf (0-2) Urine WBC 7-9 /hpf H /hpf Ur Squamous Epith Cells Occasional /hpf /hpf (Few) Urine Bacteria Trace /hpf /hpf Hyaline Ilia
--- NOTE | 2022-06-29 08:44 | PM.IMHP ---
H&P: HPI History of Present Illness Date/Time: 06/29/22 08:44 Chief Complaint: L flank pain Narrative: 56yo F w long history of nephrolithiasis presents to ER w c/o of worsening L sided flank pain intermittent for approximately 1 week. She went to the urologist office on Thursday with given antibiotics for UTI and sent home. The following day she came to the hospital with complaint of feeling sick with chills worsening left flank pain. Urine culture in the ER appears to be with infection and on CT imaging there was concern for 2 mm stone at the UVJ. admission is recommended for treatment Review of Systems Review of Systems: All systems reviewed & are unremarkable except as noted in HPI and below PMFSH Past Medical History Medical History Anxiety BMI 39.0-39.9,adult Chronic kidney disease CKD (chronic kidney disease) stage 3, GFR 30-59 ml/min Edema Hypothyroid Kidney stones Nephrocalcinosis JUANA (obstructive sleep apnea) Patient denies being tested for sleep apnea Renal tubular acidosis Ureterolithiasis With history of prior nephrostomy tubes in 2014 Surgical History Surgical History History of breast augmentation History of tonsillectomy S/P ureteral stent placement Jun 10, 2022 bilateral stent exchange. right stone extraction. stent dislodged prior to discharge and removed on . Family History Family History Father Acute myocardial infarction Tobacco abuse Mother Cerebrovascular accident Sibling Thyroid activity decreased Other Family history of cardiovascular disease Hypertension Social History Social History Social History: She has been since 1982. 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[employer] Gender identity (if verbalized by the patient): Female Spiritual care concerns: No Meds Home Medications and Allergies Home Medications Medication Instructions Recorded Confirmed Type spironolactone 25 mg tablet 25 mg PO DAILY 11/10/19 06/29/22 History cholecalciferol (vitamin D3) 1,250 50,000 unit PO .Twice a month #6 04/11/22 06/29/22 Rx mcg (50,000 unit) capsule caps sodium bicarbonate See Rx Instructions .Route .COMPLEX 06/06/22 06/29/22 History levothyroxine 88 mcg capsule 88 mcg PO DAILY 06/29/22 06/29/22 History (Tirosint) lorazepam 0.5 mg tablet 0.5 mg PO TID PRN Anxiety 06/29/22 06/29/22 History Allergies Allergy/AdvReac Type Severity Reaction Status Date / Time No Known Allergies Allergy Verified 06/29/22 03:25 Vital Signs Vital Signs - 24 hr 06/28/22 22:32 06/28/22 23:27 06/29/22 01:34 Temperature 98.3 F Pulse Rate 67 61 62 Respiratory Rate 18 16 16 Blood Pressure 130/80 129/85 125/79 Pulse Oximetry 99 99 98 Oxygen Delivery Room Air 06/29/22 02:48 06/29/22 03:07 06/29/22 04:37 Temperature 97.7 F 97.9 F Pulse Rate 55 L 58 L 55 L Respiratory Rate 18 20 18 Blood Pressure 142/70 H 104/53 L Pulse Oximetry 98 100 97 Oxygen Delivery Exam Const: General: comfortable and no acute distress HENMT: Face/Nose/Sinus: Normal nares present Mouth: Yes moist mucous membranes Eyes: General: appearance normal, both eyes and all related structures Sclera: sclerae normal EOM: EOMs intact bilaterally Neck: Neck: supple and no JVD Carotids: no bruits Skin: General skin exam: normal color and no rashes or lesions noted Neuro: Speech: normal speech Motor exam (neuro): Normal motor muscle tone present throughout Extrem: General: normal to inspection, no edema and no pedal edema Psych: Affect: Anxious affect present Thought cont
--- NOTE | 2022-06-29 08:56 | WPDURCON ---
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 - Plan for left ureteral stent placememt, retrograde pyelogram, possible stone extraction. - Continue antibiotics with tailoring to PO after cultures return. Urology Consult Note HPI Date Seen: 06/29/22 Requesting Physician: Dario Castillo MD Primary Care Provider: Mani Rubio MD Consult Narrative Narrative: Danyell Wong is a 56 year old female with a history of medullary calcinosis and nephrolithiasis with recent history of URS/LL by Dr. Traylor and stent exchange due to previous infection who presents with left flank discomfort and signs of infection. Noted to have UTI by PCP and started on antibiotics, but continued to have flank pain and presented to ED. CT [facility] noted left hydronephrosis with a possible 2mm stone in the distal ureter. WBC 11, UA with signs of infection. Patient received ceftriaxone in ED and admitted overnight. Having some discomfort and mild CVA tenderness. [facility] Past Medical History Medical History Anxiety BMI 39.0-39.9,adult Chronic kidney disease CKD (chronic kidney disease) stage 3, GFR 30-59 ml/min Edema Hypothyroid Kidney stones Nephrocalcinosis JUANA (obstructive sleep apnea) Patient denies being tested for sleep apnea Renal tubular acidosis Ureterolithiasis With history of prior nephrostomy tubes in 2014 Surgical History Surgical History History of breast augmentation History of tonsillectomy S/P ureteral stent placement Jun 10, 2022 bilateral stent exchange. right stone extraction. stent dislodged prior to discharge and removed on . Family History Family History Father Acute myocardial infarction Tobacco abuse Mother Cerebrovascular accident Sibling Thyroid activity decreased Other Family history of cardiovascular disease Hypertension Social History Social History Social History: She has been since 1982. 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[employer] Gender identity (if verbalized by the patient): Female Spiritual care concerns: No Meds Home Medications and Allergies Home Medications Medication Instructions Recorded Confirmed Type spironolactone 25 mg tablet 25 mg PO DAILY 11/10/19 06/29/22 History cholecalciferol (vitamin D3) 1,250 50,000 unit PO .Twice a month #6 04/11/22 06/29/22 Rx mcg (50,000 unit) capsule caps sodium bicarbonate See Rx Instructions .Route .COMPLEX 06/06/22 06/29/22 History levothyroxine 88 mcg capsule 88 mcg PO DAILY 06/29/22 06/29/22 History (Tirosint) lorazepam 0.5 mg tablet 0.5 mg PO TID PRN Anxiety 06/29/22 06/29/22 History Allergies Allergy/AdvReac Type Severity Reaction Status Date / Time No Known Allergies Allergy Verified 06/29/22 03:25 Vital Signs Vital Signs - 24 hr 06/28/22 22:32 06/28/22 23:27 06/29/22 01:34 Temperature 36.8 C Pulse Rate 67 61 62 Respiratory Rate 18 16 16 Blood Pressure 130/80 129/85 125/79 Pulse Oximetry 99 99 98 Oxygen Delivery Room Air 06/29/22 02:48 06/29/22 03:07 06/29/22 04:37 Temperature 36.5 C 36.6 C Pulse Rate 55 L 58 L 55 L Respiratory Rate 18 20 18 Blood Pressure 142/70 H 104/53 L Pulse Oximetry 98 100 97 Oxygen Delivery Exam Const:
--- NOTE | 2022-06-29 08:57 | PC.NURSE ---
to surgery via bed
--- NOTE | 2022-06-29 09:02 | P.PNAN_ITS ---
Anes - Eval Final PreProcedure Day of Procedure 06/29/22 09:02 Patient weight: obese Heart: regular rate and rhythm Lungs: clear to auscultation and normal air movement Airway: Mallampati scale class II Neurological: alert and oriented Last oral intake: >/= 8 hours ASA classification: III Emergent: yes Anesthetic plan: proceed Anesthesia type and monitoring: general LMA Results Review: All pre-operative results and documents have been reviewed as part of the pre- operative evaluation. Informed Consent: The patient's anesthetic plan and its attendant risks and benefits were discussed with the patient/family/POA. Questions were solicited and answers provided to the satisfaction of the patient/family/POA.
[2022-06-29] MEDS: LIDOCAINE HCL 2% GEL UROJET 10 ML PKG MUCOUS MEM (09:33)
--- NOTE | 2022-06-29 09:49 | P.OP_ITS ---
Procedure Note - Detailed Date of Procedure 06/29/22 Pre-op Diagnosis kidney stone, uti Post-op Diagnosis Other (UTI; no stone noted) Procedure Performed Cystoscopy, diagnostic ureteroscopy, left ureteral stent placement, intraoperative interpretation of fluoroscopy (<60 min) Surgeon Antonette Vaughan MD Anesthesia General Indications 56F with history of stone and UTI presented with left flank pain and UTI, CT scan with read noting 2mm distal ureteral stone, though upon further inspection and personal interpretation and radiologist opinion, this could be a phlebolith outside of the ureter. However, due to patient's history and clinical picture plan for OR for possible ureteroscopy, possible stent. Findings - No stone found, though likely chronic hydronephrosis noted. Stent placed and left on a string . Description of Procedure The patient was brought back to the operating theatre. After the induction of excellent anesthesia, a surgical time out was performed, and we verified the patient identification, site, laterality, and procedure. Patient received pre- operative antibiotics with ceftriaxone prior to the case. The patient was placed in the dorsal lithotomy position. The genital area was prepped and draped in the usual, sterile fashion. We introduced a 22 Fr rigid cystoscope easily into the bladder. The patient does have a large cystocele. The urethra was noted to be unremarkable. The bladder was emptied. The scope was re-inserted. Cystoscopy did not reveal any tumors, masses, stones, trabeculations, or diverticuli. The left ureteral orifice was identified. We did not shoot a retrograde pyelogram. A bentson guidewire was placed into the catheter and advanced to the renal pelvis using fluoroscopy. We then obtained the semi rigid ureteroscope, and placed this into the bladder and subsequently into the left ureter. We were able to take the ureteroscope all the way up to the renal pelvis - no stones, strictures, or other abnormalities were noted. Therefore, the ureteroscopy was then removed. A 4.8F double-J stent was then placed under direct vision with a curl observed in the kidney and in the bladder.. We did leave a string on the stent. The bladder was emptied. The patient was then awoken without event, transferred to the recovery cart and transported to the PACU in good condition. Implants Left 4.8F double J multilength ureteral stent Estimated Blood Loss 0 Urine Output 100 Complications None Condition Stable Disposition PACU (- Plan will be to have the patient remove the stent on her own in 3 days ( no stone was seen in the OR). Otherwise, continue antibiotics for patient's infection. Follow up as scheduled previously with Dr. Traylor / [place])
[2022-06-29] MEDS: LACTATED RINGERS 1,000 ML 30 ML IV CONT (09:55)
--- NOTE | 2022-06-29 10:50 | PC.NURSE ---
pt returned from surgery, able to ambulate to bathroom without difficulty, doing well, no complaints voiced at this time
[2022-06-29] MEDS: TAMSULOSIN HCL 0.4 MG CAPSULE PO (11:11)
[2022-06-29] MEDS: SODIUM CHLORIDE 0.9% IV 1,000 ML 125 ML IV CONT (11:11)
[2022-06-29] MEDS: KETOROLAC 30 MG/ML VIAL (*BKC) IV PUSH (20:26)
[2022-06-30] MEDS: KETOROLAC 30 MG/ML VIAL (*BKC) IV PUSH (02:35)
[2022-06-30 05:29] VITALS: BP 131/70; PULSE 74; RESP 18; TEMP 36.9; O2SAT 98
--- NOTE | 2022-06-30 09:45 | WPDANESPN ---
Anes - Prog Note Post-Op Date/Time: 06/30/22 09:45 Cardiovascular status: normal Respiratory status: normal Airway patency: baseline Mental status: baseline Post-Op hydration status: normal Vital Signs: Last Vital Signs Temp 36.9 C 06/30/22 05:29 Pulse 74 06/30/22 05:29 Resp 18 06/30/22 05:29 BP 131/70 06/30/22 05:29 Pulse Ox 98 06/30/22 05:29 O2 Del Method Room Air 06/29/22 10:20 O2 Flow Rate 6 06/29/22 10:05 Pain Score (VAS): 09/30 I/O: Intake & Output 06/29/22 06/30/22 06/30/22 23:59 07:59 15:59 Intake Total 1690 300 Output Total 1600 450 Balance 90 -150 Laboratory Tests 06/28/22 23:11 06/28/22 23:11 Microbiology 06/28/22 22:03 Urine Clean Catch Urine Culture - Final Post-procedural complaints: none Patient Feedback: Patient satisfied with anesthetic care.
[2022-06-30 15:15] VITALS: BP 124/54; PULSE 63; RESP 16; TEMP 36.6
--- NOTE | 2022-06-30 17:29 | PM.DS ---
DS: Admitting Diagnosis Discharge Date 06/30/22 Admitting Diagnosis 1) BMI 39.0-39.9,adult: ?Code(s): Z68.39 - Body mass index [BMI] 39.0-39.9, adult ?Status:?Acute (2) Stage 3b chronic kidney disease: ?Code(s): N18.32 - Chronic kidney disease, stage 3b ?Status:?Chronic (3) UTI (urinary tract infection): ?Code(s): N39.0 - Urinary tract infection, site not specified ?Status:?Acute (4) Left ureteral calculus: ?Code(s): N20.1 - Calculus of ureter ?Status:?Acute (5) Renal tubular acidosis: ?Code(s): N25.89 - Other disorders resulting from impaired renal tubular function ?Status:?Chronic DS: Discharge Diagnosis Discharge Diagnosis (1) Phlebolith: Code(s): I87.8 - Other specified disorders of veins Status: Acute (2) Anxiety: Code(s): F41.9 - Anxiety disorder, unspecified Status: Acute (3) Stage 3b chronic kidney disease: Code(s): N18.32 - Chronic kidney disease, stage 3b Status: Chronic (4) Ureteral stent present: Code(s): Z96.0 - Presence of urogenital implants Status: Acute (5) Hypothyroid: Qualifiers: Hypothyroidism type: unspecified Qualified Code(s): E03.9 - Hypothyroidism, unspecified Code(s): E03.9 - Hypothyroidism, unspecified Status: Chronic (6) JUANA (obstructive sleep apnea): Code(s): G47.33 - Obstructive sleep apnea (adult) (pediatric) Status: Acute (7) Migraine: Qualifiers: Migraine type: unspecified Status migrainosus presence: without status migrainosus Intractability: not intractable Qualified Code(s): G43.909 - Migraine, unspecified, not intractable, without status migrainosus Code(s): G43.909 - Migraine, unspecified, not intractable, without status migrainosus Status: Resolved (8) UTI (urinary tract infection): Code(s): N39.0 - Urinary tract infection, site not specified Status: Acute DS: Summary Hospital Course Reason for hospitalization: Chief Complaint: L flank pain Narrative: 56yo F w long history of nephrolithiasis presents to ER w c/o of worsening L sided flank pain? intermittent for approximately 1 week.? She went to the urologist office on Thursday with given antibiotics for UTI and sent home.? The following day she came to the hospital with complaint of feeling sick with chills worsening left flank pain.? Urine culture in the ER appears to be with infection and on CT imaging there was concern for 2 mm stone at the UVJ. admission is recommended for treatment Hospital Course: patient admitted to the hospital with possible left ureterolithiasis. Urology was consulted and patient was taken for cystoscopy, diagnostic ureteroscopy. no stone was found within the ureter and patient was diagnosed with phlebolith. left ureteral stent was placed with string and patient advised to remove it after 3 days. During procedure patient was noted to have a large cystocele. She has been given documentation explaining this with indications to follow-up with her urologist. Patient reports that she feels very confident she passed a stone in that she has a urinary tract infection. Previous urinary cultures have been reviewed of the several in the medical record only 2 were positive both with Enterococcus. Patient has received 2 days of Rocephin in the hospital. She will be given another 3 days of cefdinir at discharge. Additionally, she will be given ampicillin for 5 days to cover any enterococcal infection that she might have. She is discharged home in stable condition. Status at Discharge Cognitive/behavioral status at discharge: At baseline Functional status at discharge: independent ambulation Time Spent with Patient Time attestation: Total time spent providing and/or coordinating discharge services: Exam Const: General: comfortable and no acute distress HENMT: Face/Nose/Sinus: Normal nares present Mouth: Yes moist mucous me
[2022-06-30] MEDS: cefTRIAXone 1 GM VIAL IM (19:49)
[2022-06-30] MEDS: LIDOCAINE HCL 1% LOCAL INJ 20 ML VIAL 2.1 ML INFILTRATE (19:50)
== END 2022-06-30 20:02 | disposition home or self-care (01) ==
LOC: ANHED 06-29 02:39 → ANH3MED 06-29 03:29
PROVIDERS: Urology; Admitting Provider Internal Medicine; Emergency Provider Preventive Medicine Aerospace Medicine; PCP Family Medicine; Visit Provider Hospitalist
PROC: (CPT 52352; principal; 2022-06-29 09:00)
DX: I87.8 Other specified disorders of veins (principal); N13.30 Unspecified hydronephrosis; N39.0 Urinary tract infection, site not specified; N81.10 Cystocele, unspecified; N25.89 Other disorders resulting from impaired renal tubular function; N18.32 Chronic kidney disease, stage 3b; G43.909 Migraine, unspecified, not intractable, without status migrainosus; G47.33 Obstructive sleep apnea (adult) (pediatric); E03.9 Hypothyroidism, unspecified; F41.9 Anxiety disorder, unspecified; E66.9 Obesity, unspecified; Z68.39 Body mass index [BMI] 39.0-39.9, adult
CPT/HCPCS: 52332; 36415; 74177; 80053; 81001; 85025; 87086; 87088; 96361; 96365; 96375; 99285; A9270; C1769; C2617; G0378; J0696; J1100; J1885; J2250; J2405; J2704; J3010; J7030; J7120; Q9967

== ENCOUNTER 2022-07-01 02:26 | Emergency (ER) | payer OTHER, SELFPAY ==
[2022-07-01 02:32] VITALS: BP 159/81; PULSE 64; RESP 16; O2SAT 98
[2022-07-01] MEDS: FAMOTIDINE 20 MG TABLET PO (02:53)
[2022-07-01] MEDS: diphenhydrAMINE HCl CAP 25 MG CAPSULE 50 MG PO (02:53)
--- NOTE | 2022-07-01 03:30 | ED.GENADULT ---
HPI - General Adult General Chief complaint: Unspecified Stated complaint: Flushed, allergic reaction? Time Seen by Provider: 07/01/22 02:33 History of Present Illness HPI narrative: This is a 56-year-old female, recently discharged with kidney stone status post stent placement, who presents emergency department with concern for allergic reaction to medication approximately 6 hours prior to arrival Patient prior to discharge she was given an IV dose of medication (type unknown) to which she felt mild swelling of the eyelids, tingling of the lips and generalized feelings of anxiety. She states her symptoms have improved, however she is concerned and wishes to be evaluated. She has no other complaints today. Related Data Home Medications Medication Instructions Recorded Confirmed spironolactone 25 mg tablet 25 mg PO DAILY 11/10/19 06/29/22 sodium bicarbonate See Rx Instructions .Route .COMPLEX 06/06/22 06/29/22 levothyroxine 88 mcg capsule 88 mcg PO DAILY 06/29/22 06/29/22 (Tirosint) lorazepam 0.5 mg tablet 0.5 mg PO TID PRN Anxiety 06/29/22 06/29/22 Allergies Allergy/AdvReac Type Severity Reaction Status Date / Time No Known Allergies Allergy Verified 06/29/22 03:25 Review of Systems Review of Systems: CONSTITUTIONAL: Denies fever, chills, or sweats. EYES: Denies visual changes, redness, or discharge. ENT: Tingling of the lips and swelling of the eye lids (improved) denies rhinorrhea, congestion, sore throat, or otalgia. CARDIOVASCULAR: Denies chest pain, palpitations, or edema. RESPIRATORY: Denies cough or dyspnea. GASTROINTESTINAL: Denies abdominal pain, nausea, vomiting, or diarrhea. GENITOURINARY: Denies dysuria or hematuria. SKIN: Denies rash or itching. MUSCULOSKELETAL: Denies back pain, joint pain, or myalgia. NEUROLOGIC: Denies headache, numbness, dizziness, or weakness. PSYCHIATRIC: Denies anxiety or depression. [facility] Past Medical History Medical History Anxiety BMI 39.0-39.9,adult Chronic kidney disease CKD (chronic kidney disease) stage 3, GFR 30-59 ml/min Edema Hypothyroid Kidney stones Nephrocalcinosis JUANA (obstructive sleep apnea) Patient denies being tested for sleep apnea Renal tubular acidosis Ureterolithiasis With history of prior nephrostomy tubes in 2014 Surgical History Surgical History History of breast augmentation History of tonsillectomy S/P ureteral stent placement Jun 10, 2022 bilateral stent exchange. right stone extraction. stent dislodged prior to discharge and removed on . Family History Family History Father Acute myocardial infarction Tobacco abuse Mother Cerebrovascular accident Sibling Thyroid activity decreased Other Family history of cardiovascular disease Hypertension Social History Social History Social History: She has been since 1982. 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 Appears anxious HEAD: Normocephalic, atraumatic. EYES: PERRLA and EOMI. ENT: Nares clear, no rhinorrhea or epistaxis. Mucous membranes moist. Oropharynx without tonsillar hypertrophy exudate or other lesions. No significant swelling noted NECK: Supple. No adenopathy or masses. No carotid bruits or JVD CHEST: Clear to auscultation. No respiratory distress. No wheezes rales or rhonchi HEART: Regular rate and rhythm. No murmur heard. Normal peripheral pulses. ABDOMEN: Soft, nonten
[2022-07-01 04:41] VITALS: PULSE 72; RESP 18; O2SAT 96
== END 2022-07-01 04:47 | disposition home or self-care (01) ==
PROVIDERS: Emergency Provider Preventive Medicine Aerospace Medicine; PCP Family Medicine
DX: R20.2 Paresthesia of skin (principal); F41.9 Anxiety disorder, unspecified; R22.0 Localized swelling, mass and lump, head; T36.1X5A Adverse effect of cephalosporins and other beta-lactam antibiotics, initial encounter; E03.9 Hypothyroidism, unspecified; Z87.442 Personal history of urinary calculi; N18.30 Chronic kidney disease, stage 3 unspecified; Z96.0 Presence of urogenital implants
CPT/HCPCS: 99283; A9270

== ENCOUNTER 2022-08-01 13:16 | Emergency (ER) | payer OTHER, SELFPAY ==
--- NOTE | ~2022-08-01 | CT_ITS ---
EXAMINATION: CT abdomen pelvis wo con DATE: 08/01/2022 16:40 INDICATION: Left flank pain. TECHNIQUE: Computed tomography (CT) of the abdomen and pelvis was performed without intravenous contr ast. Automated exposure control and iterative reconstruction technique were employed. The dose-length product was 1387.33 mGy-cm. COMPARISON: CT abdomen and pelvis 06/28/2022 FINDINGS: The visualized portions of the lung bases demonstrate mild atelectasis. No pleural effusion . The heart size is normal. No pericardial effusion. There is diffuse hepatic steatosis. The gallblad carine, spleen, pancreas, and adrenal glands are normal. There is mild atrophy of the kidneys, left wors e than right. There is medullary nephrocalcinosis bilaterally. There are stones in the kidneys measur ing up to 13 mm on the left. There are no dilated loops of bowel. The appendix or appendiceal remnant is normal. There is an umbilical hernia containing fat. There are no pathologically enlarged lymph n odes. There is no free intraperitoneal fluid. IMPRESSION: 1. Bilateral medullary nephrocalcinosis and nonobstructing kidney stones. 2. Mild atrophy of the kidneys, left worse than right. 3. Umbilical hernia containing fat. Reviewed, dictated and finalized at location A. 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
[2022-08-01 13:18] VITALS: BP 165/67; PULSE 70; RESP 20; TEMP 36.8; O2SAT 98
[2022-08-01 13:51] LABS: Basophils Absolute Auto 0.1 K/mm3 (0.0-0.1); Basophils Percent Auto 0.6 % (0.2-1.2); Eosinophils Absolute Auto 0.3 K/mm3 (0-0.3); Eosinophils Percent Auto 2.3 % (0-4.4); Hematocrit 44.3 % (37.0-47.0); Immature Granulocyte Absolute 0.06 K/mm3 (0.00-0.031); Immature Granulocyte Percent A 0.6 % (0-0.5); Lymphocytes Absolute Auto 2.27 K/mm3 (0.9-3.2); Lymphocytes Percent Auto 21.3 % (18.3-44.2); Mean Corpuscular HGB Conc 31.6 g/dl (32-36); Mean Corpuscular Hemoglobin 29.3 pg (26-34); Mean Corpuscular Volume 92.7 fl (80-100); Mean Platelet Volume 9.8 fl (7.4-10.4); Monocytes Percent Auto 9.6 % (2.6-8.5); Neutrophils Percent Auto 65.6 % (45.5-73.1); Platelet Count Result 344 k/mm3 (150-375); Red Blood Count 4.78 M/mm3 (4.2-5.4); Red Cell Distribution Width 13.5 % (11.5-14.5); White Blood Count 10.7 K/mm3 (4.5-10.0)
[2022-08-01 13:55] LABS: Appearance Urine Clear (Clear); Bilirubin Urine Negative (Negative); Blood Urine Trace-intact (Negative); Color Urine Yellow (Yellow); Glucose Urine UA Negative (Negative); Ketones Urine Negative (Negative); Leukocyte Esterase Ur 1+ LEU/UL (Negative); Nitrate Urine Positive (Negative); Protein Urine Negative (Negative); Urobilinogen Urine 0.2 mg/dL (<2.0); pH Urine 6.5 (5.0-9.0)
[2022-08-01 14:04] LABS: Alanine Aminotransferase 33 U/L (6-35); Albumin Level 4.8 g/dL (3.5-5.1); Alkaline Phosphatase 64 U/L (38-126); Anion Gap 17 mmol/L (8-16); Aspartate Amino Transferase 32 U/L (14-36); Bilirubin,Total 0.4 mg/dL (0.2-1.3); Blood Urea Nitrogen 18 mg/dL (7-17); Calcium 9.4 mg/dL (8.4-10.2); Carbon Dioxide 19 mmol/L (22-30); Chloride 106 mmol/L (98-107); Estimated CRCL calculation 46 ml/min; Estimated Glomerular Filt Rate 36; Glucose 101 mg/dL (65-110); Sodium 142 mmol/L (137-145)
[2022-08-01 14:13] LABS: RBC Urine 0-2 /hpf (0-2); Squamous Epithelial Cell Urine Rare /hpf (Few)
[2022-08-01 14:32] LABS: Add Urine Microscopic? YES
--- NOTE | 2022-08-01 16:20 | ED.ABDPAIN ---
HPI - Abdominal Pain General Chief Complaint: Abdominal Pain Stated Complaint: left sided pressure and pain abd/flank Time Seen by Provider: 08/01/22 15:58 Source: patient, RN notes reviewed and old records reviewed Mode of arrival: ambulatory Limitations: no limitations History of Present Illness HPI narrative: This is a 57 year old female who presents for evaluation of left flank pain. Patient has been having dysuria for a few days so she was seen by urologist. She had given a urine sample and she was started on levaquin after culture results returned on Thursday. She developed intermittent left flank pain radiating to her left groin last night. She describes pain has dull ache. She had nausea and she reports t max 99F on Thursday. She also reports chills. She reports she still does not feel well. She rates pain 4/10. Related Data Home Medications Medication Instructions Recorded Confirmed spironolactone 25 mg tablet 25 mg PO DAILY 11/10/19 06/29/22 sodium bicarbonate See Rx Instructions .Route .COMPLEX 06/06/22 06/29/22 levothyroxine 88 mcg capsule 88 mcg PO DAILY 06/29/22 06/29/22 (Tirosint) lorazepam 0.5 mg tablet 0.5 mg PO TID PRN Anxiety 06/29/22 06/29/22 Allergies Allergy/AdvReac Type Severity Reaction Status Date / Time rocephin Allergy Mild Rash Uncoded 08/01/22 16:22 Review of Systems Review of Systems: All systems reviewed & are unremarkable except as noted in HPI and below Constitutional: Constitutional: Reports chills and Reports fatigue Gastrointestinal: Gastrointestinal: Reports abdominal pain and Reports nausea Genitourinary: Genitourinary: Reports dysuria and Reports flank pain [facility] Past Medical History Medical History Anxiety BMI 39.0-39.9,adult Chronic kidney disease CKD (chronic kidney disease) stage 3, GFR 30-59 ml/min Edema Hypothyroid Kidney stones Nephrocalcinosis JUANA (obstructive sleep apnea) Patient denies being tested for sleep apnea Renal tubular acidosis Ureterolithiasis With history of prior nephrostomy tubes in 2014 Surgical History Surgical History History of breast augmentation History of tonsillectomy S/P ureteral stent placement Jun 10, 2022 bilateral stent exchange. right stone extraction. stent dislodged prior to discharge and removed on . Family History Family History Father Acute myocardial infarction Tobacco abuse Mother Cerebrovascular accident Sibling Thyroid activity decreased Other Family history of cardiovascular disease Hypertension Social History Social History Social History: She has been since 1982. 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[employer] Gender identity (if verbalized by the patient): Female Spiritual care concerns: No Exam Const: General: no acute distress and alert Nutritional Appearance: well nourished Orientation/consciousness: patient oriented x3 HENMT: Head: normal to inspection Eyes: EOM: EOMs intact bilaterally Chest: Chest palpation & inspection: normal inspection of the chest Resp: Effort & Inspection: normal respiratory effort Auscultation: clear to auscultation bilaterally Cardio: Rate: regular rate Rhythm: regular rhythm Heart sounds: no murmurs GI: GI Palp: Yes Soft to palpation, No Tenderness to palpation present (GI), No Guarding due to palpation present (GI) and No Rigid due to palpation Auscultation: normal bowel sounds : General: Yes no CVA tenderness Back/Spine/Pelvis: Back: no CVA tenderness Skin: General skin exam: normal color Rashes: no rashes
[2022-08-01] MEDS: levoFLOXacin 500 MG/D5W 100 ML 500 MG/100 ML BAG 100 MG IVPB (16:48)
== END 2022-08-01 18:36 | disposition home or self-care (01) ==
PROVIDERS: Emergency Provider General Practice; PCP Family Medicine
DX: E83.59 Other disorders of calcium metabolism (principal); N29 Other disorders of kidney and ureter in diseases classified elsewhere; N39.0 Urinary tract infection, site not specified; N18.30 Chronic kidney disease, stage 3 unspecified; E03.9 Hypothyroidism, unspecified; Z87.442 Personal history of urinary calculi; G47.33 Obstructive sleep apnea (adult) (pediatric); N26.1 Atrophy of kidney (terminal); K42.9 Umbilical hernia without obstruction or gangrene
CPT/HCPCS: 36415; 74176; 80053; 81001; 85025; 87086; 87088; 96365; 99284; J1956

== ENCOUNTER 2022-09-15 11:24 | Emergency (ER) | payer OTHER, SELFPAY ==
--- NOTE | ~2022-09-15 | XR_ITS ---
EXAMINATION: XR chest 2V DATE: 09/15/2022 12:17 INDICATION: Shortness of breath and chest pressure TECHNIQUE: PA and lateral views of the chest were obtained. COMPARISON: Chest radiograph dated 05/17/2022 FINDINGS: The lungs remain clear with no focal airspace opacities, pulmonary edema, pleural effusion or pneumot horax. The cardiomediastinal silhouette is normal. Doppler calcification at the periphery of bilatera l breast implants. IMPRESSION: 1. No acute cardiopulmonary disease. Reviewed, dictated and finalized at location A. 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
[2022-09-15 11:28] VITALS: BP 156/71; PULSE 67; RESP 14; TEMP 36.7; O2SAT 100
[2022-09-15 11:39] VITALS: BP 170/81; PULSE 67; RESP 12; O2SAT 98
--- NOTE | 2022-09-15 11:40 | ECG_ITS ---
Measurements Intervals [place] Rate: 72 P: 60 [place]: 189 QRS: 82 QRSD: 65 T: 57 QT: 366 QTc: 401 Interpretive Statements SINUS RHYTHM WITH OCCASIONAL VENTRICULAR PREMATURE COMPLEXES BASELINE ARTIFACT LOW QRS VOLTAGE IN PRECORDIAL LEADS MINIMAL Q-WAVES INFERIOR LEADS BORDERLINE ECG COMPARED TO ECG 06/06/2022 00:24:23 NO SIGNIFICANT CHANGES Electronically Signed On 09-15-2022 16:59:18 DESIGN CONSULTANT by Guero Wheeler M.D.
[2022-09-15 12:05] LABS: Basophils Absolute Auto 0.1 K/mm3 (0.0-0.1); Basophils Percent Auto 0.5 % (0.2-1.2); Eosinophils Absolute Auto 0.2 K/mm3 (0-0.3); Eosinophils Percent Auto 1.6 % (0-4.4); Hematocrit 45.5 % (37.0-47.0); Hemoglobin 14.2 g/dL (12.0-15.0); Immature Granulocyte Absolute 0.11 K/mm3 (0.00-0.031); Lymphocytes Absolute Auto 1.73 K/mm3 (0.9-3.2); Lymphocytes Percent Auto 15.6 % (18.3-44.2); Mean Corpuscular HGB Conc 31.2 g/dl (32-36); Mean Corpuscular Hemoglobin 28.6 pg (26-34); Mean Corpuscular Volume 91.5 fl (80-100); Mean Platelet Volume 9.4 fl (7.4-10.4); Monocytes Absolute Auto 0.8 K/mm3 (0.1-0.6); Monocytes Percent Auto 7.1 % (2.6-8.5); Neutrophils Absolute Auto 8.2 K/mm3 (1.3-6.7); Neutrophils Percent Auto 74.2 % (45.5-73.1); Platelet Count Result 337 k/mm3 (150-375); Red Blood Count 4.97 M/mm3 (4.2-5.4); Red Cell Distribution Width 13.5 % (11.5-14.5); White Blood Count 11.1 K/mm3 (4.5-10.0)
[2022-09-15 12:11] LABS: Alanine Aminotransferase 29 U/L (6-35); Albumin Level 4.7 g/dL (3.5-5.1); Alkaline Phosphatase 73 U/L (38-126); Anion Gap 12 mmol/L (8-16); Aspartate Amino Transferase 30 U/L (14-36); Bilirubin,Total 0.4 mg/dL (0.2-1.3); Blood Urea Nitrogen 16 mg/dL (7-17); Calcium 9.2 mg/dL (8.4-10.2); Carbon Dioxide 17 mmol/L (22-30); Chloride 113 mmol/L (98-107); Estimated CRCL calculation 53 ml/min; Estimated Glomerular Filt Rate 42; Glucose 112 mg/dL (65-110); Potassium 4.3 mmol/L (3.4-5.0); Sodium 142 mmol/L (137-145)
--- NOTE | 2022-09-15 12:13 | ED.GENADULT ---
HPI - General Adult General Chief complaint: Shortness of Breath/Dyspnea Stated complaint: chest discomfort, new med trimethoprim Time Seen by Provider: 09/15/22 11:57 History of Present Illness HPI narrative: 57-year-old female history of CKD, hypothyroid, persistent UTIs presented with shortness of breath. Per patient, she was in her usual state of health until yesterday last night when she slowly started feeling short of breath, was intermittently made worse with ambulation. She continued to have shortness of breath today so decided to present to the ED for further evaluation. She denied chest pain, nausea, vomiting, radiation, fevers, chills, sick contacts, abdominal pain, dysuria, diarrhea, hemoptysis. Past medical history: CKD, hypothyroid Past surgical history: ureteral stent placement Medications: Levothyroxine, spironolactone Allergies: No known drug allergies Social: Denies smoking, alcohol, recreational drugs Related Data Home Medications Medication Instructions Recorded Confirmed spironolactone 25 mg tablet 25 mg PO DAILY 11/10/19 08/18/22 sodium bicarbonate See Rx Instructions .Route .COMPLEX 06/06/22 08/18/22 levothyroxine 88 mcg capsule 88 mcg PO DAILY 06/29/22 08/18/22 (Tirosint) lorazepam 0.5 mg tablet 0.5 mg PO TID PRN Anxiety 06/29/22 08/18/22 Allergies Allergy/AdvReac Type Severity Reaction Status Date / Time rocephin AdvReac Mild Fever Uncoded 08/18/22 10:06 Review of Systems Review of Systems: See HPI [facility] Past Medical History Medical History Anxiety BMI 39.0-39.9,adult Chronic kidney disease CKD (chronic kidney disease) stage 3, GFR 30-59 ml/min Edema Hypothyroid Kidney stones Nephrocalcinosis JUANA (obstructive sleep apnea) Patient denies being tested for sleep apnea Renal tubular acidosis Ureterolithiasis With history of prior nephrostomy tubes in 2014 Surgical History Surgical History History of breast augmentation History of tonsillectomy S/P ureteral stent placement Jun 10, 2022 bilateral stent exchange. right stone extraction. stent dislodged prior to discharge and removed on . Family History Family History Father Acute myocardial infarction Tobacco abuse Mother Cerebrovascular accident Sibling Thyroid activity decreased Other Family history of cardiovascular disease Hypertension Social History Social History Social History: She has been since 1982. 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[employer] Gender identity (if verbalized by the patient): Female Spiritual care concerns: No Comments See HPI Exam Narrative: APPEARANCE: Alert, calm and cooperative, no acute distress, phonating, sitting comfortably during visit, elevated BMI HEAD: atraumatic EYES: Pupils equal round an reactive to light, extra ocular movements intact, no conjunctival injection NOSE: Normal no drainage NECK: Supple, without meningismus RESPIRATORY: Lungs clear to auscultation bilaterally, no wheezes/rales/rhonchi, breathing comfortably and saturating 100% on ambient air CARDIOVASCULAR: Regular rate and rhythm, no visible jugular venous distension, POCUS LV EF with grossly preserved ejection fraction, no evidence of right heart strain, no pericardial effusion, IVC collapsib
[2022-09-15 12:28] VITALS: BP 132/72; PULSE 64; RESP 13; O2SAT 98
[2022-09-15 13:24] VITALS: BP 144/82; PULSE 70; RESP 15; O2SAT 98
[2022-09-15 13:37] LABS: Influenza A QL RT-PCR Negative (Negative); Influenza B QL RT-PCR Negative (Negative); RSV RNA, RT-PCR Negative (Negative); SARS-CoV-2 RNA PCR Negative
[2022-09-15 13:42] LABS: D Dimer 0.38 ug/mL (<0.48)
[2022-09-15 15:21] VITALS: BP 138/81; PULSE 63; RESP 18; O2SAT 100
== END 2022-09-15 15:24 | disposition home or self-care (01) ==
PROVIDERS: Emergency Medicine; Emergency Provider Emergency Medicine; PCP Family Medicine
DX: R06.00 Dyspnea, unspecified (principal); Z20.822 Contact with and (suspected) exposure to COVID-19; N18.9 Chronic kidney disease, unspecified; E03.9 Hypothyroidism, unspecified; Z87.442 Personal history of urinary calculi; I49.3 Ventricular premature depolarization
CPT/HCPCS: 36415; 71046; 80053; 85025; 85380; 87637; 93005; 99284

== ENCOUNTER 2022-10-10 14:03 | Outpatient (CLI) | payer OTHER, SELFPAY ==
--- NOTE | ~2022-10-10 | XR_ITS ---
XR abdomen/kub 1V DATE: 10/10/2022 14:30 INDICATION: Kidney stones/nephrocalcinosis TECHNIQUE: AP projection, 2 views COMPARISON: 06/26/2022 KUB FINDINGS: There are extensive bilateral nephrocalcinosis and nephrolithiasis appears relatively stabl e since 06/26/2022. No calcification overlying the ureters is evident. Associated as are intact. No bowel obstruction. IMPRESSION: Probably stable extensive bilateral nephrocalcinosis and nephrolithiasis since 06/26/2020 Reviewed, dictated and finalized at Location A. Reviewed, dictated and finalized at location B. GRATED SPECIALIST IMPRESSION: Probably stable extensive bilateral nephrocalcinosis and nephrolith iasis since 06/26/2020
== END 2022-10-10 14:04 | disposition home or self-care (01) ==
LOC: ANHIMG 14:06
PROVIDERS: PCP Family Medicine; Visit Provider Internal Medicine Nephrology
DX: N20.0 Calculus of kidney (principal)
CPT/HCPCS: 74018

== ENCOUNTER 2022-11-23 23:07 | Emergency (ER) | payer OTHER, SELFPAY ==
--- NOTE | ~2022-11-23 | CT_ITS ---
EXAMINATION: CT brain wo con DATE: 11/24/2022 02:13 INDICATION: Frontal headache, nausea and vomiting TECHNIQUE: Computed tomography (CT) of the head was performed without intravenous contrast. The mA wa s adjusted according to patient size. Iterative reconstruction technique was employed. Exam dose: 60 5.33 mGy-cm total exam DLP. COMPARISON: None FINDINGS: No intracranial mass lesion or hemorrhage or cerebrovascular accident. No midline shift or mass effect. Normal ventricular size. No subdural or epidural hematoma. There is an isolated opacified posterolateral left ethmoid air cell. Included paranasal sinuses and t he mastoid air cells are normally developed and aerated otherwise. No fracture or bone destruction of the cranial vault. IMPRESSION: No significant abnormality Reviewed, dictated and finalized at Location A. Reviewed, dictated and finalized at location B. D ARTILLERY OFFICER IMPRESSION: No significant abnormality
[2022-11-23 23:23] VITALS: BP 164/84; PULSE 72; RESP 18; TEMP 36.8; O2SAT 100
[2022-11-24 01:17] VITALS: BP 161/81; PULSE 63; RESP 14; TEMP 36.9; O2SAT 98
[2022-11-24] MEDS: diphenhydrAMINE HCl INJ 50 MG/ML VIAL IV PUSH (01:44)
[2022-11-24] MEDS: PROCHLORPERAZINE EDISYLATE 10 MG/2 ML VIAL IV PUSH (01:44)
[2022-11-24] MEDS: SODIUM CHLORIDE 0.9% IV 1,000 ML 999 ML IV CONT (01:46)
--- NOTE | 2022-11-24 01:47 | ED.GENADULT ---
HPI - General Adult General Chief complaint: Headache Stated complaint: n/v, BAILEY Time Seen by Provider: 11/24/22 01:28 History of Present Illness HPI narrative: Patient 57-year-old female who presents to emergency department with chief complaint of headache. The patient reports that she has been treated for hypothyroidism has just patient's recent patient states that today she started having headache that she is taking Tylenol sometimes for patient reports she had an episode of vomiting denies focal neurological deficits but does report that she has had some photophobia. Patient reports she does not typically have headaches this bad considers this a migraine Related Data Home Medications Medication Instructions Recorded Confirmed sodium bicarbonate See Rx Instructions .Route .COMPLEX 06/06/22 11/12/22 levothyroxine 88 mcg capsule 88 mcg PO DAILY 06/29/22 11/12/22 (Tirosint) WF-[id number] citrate 10 mg-100 ml PO 11/12/22 11/12/22 mg-85 mg/5 mL oral liquid cephalexin 250 mg capsule 250 mg PO Q12H 11/12/22 11/12/22 Allergies Allergy/AdvReac Type Severity Reaction Status Date / Time rocephin AdvReac Mild Fever Uncoded 11/23/22 23:27 Review of Systems Review of Systems: A 10 system review of systems was completed on the patient and is negative except for what is stated in the HPI. Nursing and ancillary documentation was reviewed. [facility] Past Medical History Medical History Anxiety BMI 39.0-39.9,adult Chronic kidney disease CKD (chronic kidney disease) stage 3, GFR 30-59 ml/min Edema Hypothyroid Kidney stones Nephrocalcinosis JUANA (obstructive sleep apnea) Patient denies being tested for sleep apnea Renal tubular acidosis Ureterolithiasis With history of prior nephrostomy tubes in 2014 Surgical History Surgical History History of breast augmentation History of tonsillectomy S/P ureteral stent placement Jun 10, 2022 bilateral stent exchange. right stone extraction. stent dislodged prior to discharge and removed on . Family History Family History Father Acute myocardial infarction Tobacco abuse Mother Cerebrovascular accident Sibling Thyroid activity decreased Other Family history of cardiovascular disease Hypertension Social History Social History Social History: She has been since 1982. 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 HEAD: Normocephalic, atraumatic. EYES: PERRLA and EOMI. ENT: Nares clear, no rhinorrhea or epistaxis. Mucous membranes moist. NECK: Supple. CHEST: Clear to auscultation. No respiratory distress. HEART: Regular rate and rhythm. No murmur heard. Normal peripheral pulses. ABDOMEN: Soft, nontender, nondistended, normal active bowel sounds. EXTREMITIES: Normal range of motion. No edema. SKIN: Warm, dry, no rash. NEURO: No focal deficits. Alert and oriented x3. PSYCH: Normal mood and affect. Course Course Emergency Course: Differential diagnosis incl
[2022-11-24 01:57] LABS: Basophils Absolute Auto 0.1 K/mm3 (0.0-0.1); Basophils Percent Auto 0.4 % (0.2-1.2); Eosinophils Absolute Auto 0.3 K/mm3 (0-0.3); Eosinophils Percent Auto 2.2 % (0-4.4); Hematocrit 42.2 % (37.0-47.0); Hemoglobin 13.6 g/dL (12.0-15.0); Immature Granulocyte Absolute 0.07 K/mm3 (0.00-0.031); Immature Granulocyte Percent A 0.6 % (0-0.5); Lymphocytes Percent Auto 21.3 % (18.3-44.2); Mean Corpuscular HGB Conc 32.2 g/dl (32-36); Mean Corpuscular Hemoglobin 27.6 pg (26-34); Mean Corpuscular Volume 85.8 fl (80-100); Mean Platelet Volume 10.7 fl (7.4-10.4); Monocytes Absolute Auto 1.4 K/mm3 (0.1-0.6); Monocytes Percent Auto 11.5 % (2.6-8.5); Neutrophils Absolute Auto 7.8 K/mm3 (1.3-6.7); Platelet Count Result 395 k/mm3 (150-375); Red Blood Count 4.92 M/mm3 (4.2-5.4); Red Cell Distribution Width 14.5 % (11.5-14.5); White Blood Count 12.2 K/mm3 (4.5-10.0)
[2022-11-24 02:05] LABS: Appearance Urine Clear (Clear); Bacteria Urine None Seen /hpf; Bilirubin Urine Negative (Negative); Blood Urine Negative (Negative); Color Urine Yellow (Yellow); Glucose Urine UA Negative (Negative); Ketones Urine Negative (Negative); Leukocyte Esterase Ur 1+ LEU/UL (Negative); Nitrate Urine Negative (Negative); Non Pathogenic Casts 0-2; Protein Urine Trace mg/dL (Negative); RBC Urine 0-2 /hpf (0-2); Specific Grav Ur 1.011 (1.001-1.035); Squamous Epithelial Cell Urine None seen /hpf (Few); Urobilinogen Urine 0.2 mg/dL (<2.0); pH Urine 6.5 (5.0-9.0)
[2022-11-24 02:23] LABS: Add Urine Microscopic? YES
[2022-11-24 02:30] VITALS: BP 155/74; PULSE 80; RESP 19; O2SAT 97
[2022-11-24 03:06] LABS: Alanine Aminotransferase 37 U/L (6-35); Albumin Level 4.2 g/dL (3.5-5.1); Alkaline Phosphatase 55 U/L (38-126); Anion Gap 6 mmol/L (8-16); Aspartate Amino Transferase 34 U/L (14-36); Bilirubin,Total 0.6 mg/dL (0.2-1.3); Blood Urea Nitrogen 17 mg/dL (7-17); Calcium 8.5 mg/dL (8.4-10.2); Carbon Dioxide 20 mmol/L (22-30); Chloride 111 mmol/L (98-107); Estimated CRCL calculation 53 ml/min; Estimated Glomerular Filt Rate 42; Glucose 109 mg/dL (65-110); Magnesium 1.9 mg/dL (1.6-2.3); Sodium 137 mmol/L (137-145)
[2022-11-24 03:55] VITALS: BP 160/88; PULSE 64; RESP 19; O2SAT 98
== END 2022-11-24 03:55 | disposition home or self-care (01) ==
PROVIDERS: Emergency Provider Emergency Medicine; PCP Family Medicine
DX: N39.0 Urinary tract infection, site not specified (principal); R51.9 Headache, unspecified; F41.9 Anxiety disorder, unspecified; N18.30 Chronic kidney disease, stage 3 unspecified; E03.9 Hypothyroidism, unspecified; Z87.442 Personal history of urinary calculi; G47.30 Sleep apnea, unspecified
CPT/HCPCS: 36415; 70450; 80053; 81001; 83735; 85025; 87086; 96361; 96374; 96375; 99285; J0780; J1200; J7030

== ENCOUNTER 2023-01-17 10:50 | Outpatient (CLI) | payer OTHER, SELFPAY ==
--- NOTE | ~2023-01-17 | XR_ITS ---
EXAMINATION: XR abdomen/kub 1V DATE: 01/17/2023 11:10 INDICATION: Bilateral kidney stones. TECHNIQUE: A supine view of the abdomen on 2 radiographs was obtained. COMPARISON: CT abdomen and pelvis 08/01/2022, abdomen radiographs 10/10/22 FINDINGS: There are no dilated loops of bowel. There are greater than 10 stones in each kidney measur ing up to 17 mm on the left. There are phleboliths in the pelvis. IMPRESSION: 1. Bilateral kidney stones. Reviewed, dictated and finalized at location A. IMPRESSION: 1. Bilateral kidney stones.
== END 2023-01-17 10:51 | disposition home or self-care (01) ==
LOC: ANHIMG 10:52
PROVIDERS: PCP Family Medicine; Visit Provider Urology
DX: N20.0 Calculus of kidney (principal)
CPT/HCPCS: 74018

== ENCOUNTER 2023-02-19 12:38 | Emergency (ER) | payer OTHER, SELFPAY ==
--- NOTE | ~2023-02-19 | XR_ITS ---
EXAMINATION: XR chest 2V DATE: 02/19/2023 13:25 INDICATION: Weakness and fatigue TECHNIQUE: PA and lateral views of the chest are obtained. COMPARISON: 09/15/2022 FINDINGS: The lungs are free of acute opacities. No pleural effusion or pneumothorax. The cardiomedia stinal silhouette is normal. There is mild thoracic spondylosis. Bilateral breast implants are noted. IMPRESSION: 1. No acute cardiopulmonary abnormality. Reviewed, dictated and finalized at location L.
--- NOTE | 2023-02-19 12:52 | ECG_ITS ---
Measurements Intervals [place] Rate: 66 P: 47 UT: 183 QRS: 85 QRSD: 78 T: 44 QT: 385 QTc: 406 Interpretive Statements SINUS RHYTHM LOW QRS VOLTAGE IN PRECORDIAL LEADS [QRS DEFLECTION < 1.0 mV IN CHEST LEADS] COMPARED TO ECG 09/15/2022 11:46:43 NO SIGNIFICANT CHANGES Electronically Signed On 02-19-2023 15:29:42 CDT by Sarah Gaines M.D.
[2023-02-19 12:53] VITALS: BP 160/74; PULSE 75; RESP 16; TEMP 36.6; O2SAT 98
[2023-02-19 13:24] LABS: Basophils Percent Auto 0.4 % (0.2-1.2); Eosinophils Absolute Auto 0.2 K/mm3 (0-0.3); Eosinophils Percent Auto 1.8 % (0-4.4); Hemoglobin 13.9 g/dL (12.0-15.0); Immature Granulocyte Absolute 0.04 K/mm3 (0.00-0.031); Immature Granulocyte Percent A 0.4 % (0-0.5); Lymphocytes Absolute Auto 2.15 K/mm3 (0.9-3.2); Lymphocytes Percent Auto 21.2 % (18.3-44.2); Mean Corpuscular HGB Conc 30.9 g/dl (32-36); Mean Corpuscular Hemoglobin 26.9 pg (26-34); Mean Platelet Volume 9.8 fl (7.4-10.4); Monocytes Absolute Auto 0.9 K/mm3 (0.1-0.6); Monocytes Percent Auto 8.6 % (2.6-8.5); Neutrophils Absolute Auto 6.9 K/mm3 (1.3-6.7); Neutrophils Percent Auto 67.6 % (45.5-73.1); Platelet Count Result 329 k/mm3 (150-375); Red Blood Count 5.17 M/mm3 (4.2-5.4); Red Cell Distribution Width 14.3 % (11.5-14.5); White Blood Count 10.2 K/mm3 (4.5-10.0)
[2023-02-19 13:30] LABS: Alanine Aminotransferase 43 U/L (6-35); Albumin Level 4.6 g/dL (3.5-5.1); Alkaline Phosphatase 63 U/L (38-126); Anion Gap 9 mmol/L (8-16); Aspartate Amino Transferase 34 U/L (14-36); Bilirubin,Total 0.5 mg/dL (0.2-1.3); Blood Urea Nitrogen 18 mg/dL (7-17); Calcium 8.8 mg/dL (8.4-10.2); Carbon Dioxide 22 mmol/L (22-30); Chloride 109 mmol/L (98-107); Estimated CRCL calculation 50 ml/min; Estimated Glomerular Filt Rate 39; Glucose 105 mg/dL (65-110); Potassium 3.7 mmol/L (3.4-5.0); Sodium 140 mmol/L (137-145)
[2023-02-19 14:32] LABS: Appearance Urine Clear (Clear); Bacteria Urine None Seen /hpf; Bilirubin Urine Negative (Negative); Blood Urine Negative (Negative); Color Urine Yellow (Yellow); Glucose Urine UA Negative (Negative); Ketones Urine Negative (Negative); Leukocyte Esterase Ur 2+ LEU/UL (Negative); Nitrate Urine Negative (Negative); Non Pathogenic Casts 0-2; Protein Urine Trace mg/dL (Negative); RBC Urine 0-2 /hpf (0-2); Specific Grav Ur 1.009 (1.001-1.035); Squamous Epithelial Cell Urine None seen /hpf (Few); Urobilinogen Urine 0.2 mg/dL (<2.0)
[2023-02-19 14:41] LABS: Add Urine Microscopic? YES
--- NOTE | 2023-02-19 14:49 | ED.GENADULT ---
HPI - General Adult General Chief complaint: Weakness Stated complaint: muscle cramps, weakness Time Seen by Provider: 02/19/23 14:07 History of Present Illness HPI narrative: Patient is a 57-year-old female with a history of hypothyroidism, CKD presenting with generalized weakness. Patient states that for the last several weeks she has been increasingly weak and has been experiencing increasingly frequent muscle spasms. States that she often wakes up with charley horses. States that certain movements exacerbate the spasms. States that she has had problems with potassium in the past so she was concerned that her electrolytes were causing her weakness. States that she is on daily Macrobid for chronic UTIs. States that she has been on that for the last month. She denies numbness or weakness, chest pain, shortness of breath, abdominal pain, vomiting, diarrhea, dysuria, leg swelling. Related Data Home Medications Medication Instructions Recorded Confirmed sodium bicarbonate See Rx Instructions .Route .COMPLEX 06/06/22 11/12/22 EM-TU-jsuzcuytr citrate 10 mg-100 ml PO 11/12/22 11/12/22 mg-85 mg/5 mL oral liquid cephalexin 250 mg capsule 250 mg PO Q12H 11/12/22 11/12/22 levothyroxine 88 mcg capsule 112 mcg PO DAILY 01/27/23 10/22/22 (Tirosint) Allergies Allergy/AdvReac Type Severity Reaction Status Date / Time rocephin AdvReac Mild Fever Uncoded 02/19/23 14:05 Review of Systems Review of Systems: All systems reviewed & are unremarkable except as noted in HPI and below PMFSH Past Medical History Medical History Anxiety BMI 39.0-39.9,adult Chronic kidney disease CKD (chronic kidney disease) stage 3, GFR 30-59 ml/min Edema Hypothyroid Kidney stones Nephrocalcinosis JUANA (obstructive sleep apnea) Patient denies being tested for sleep apnea Renal tubular acidosis Ureterolithiasis With history of prior nephrostomy tubes in 2014 Surgical History Surgical History History of breast augmentation History of tonsillectomy S/P ureteral stent placement Jun 10, 2022 bilateral stent exchange. right stone extraction. stent dislodged prior to discharge and removed on . Family History Family History Father Acute myocardial infarction Tobacco abuse Mother Cerebrovascular accident Sibling Thyroid activity decreased Other Family history of cardiovascular disease Hypertension Social History Social History Social History: She has been since 1982. 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 HEAD: Normocephalic, atraumatic. EYES: PERRLA and EOMI. ENT: Nares clear, no rhinorrhea or epistaxis. Mucous membranes moist. NECK: Supple. CHEST: Clear to auscultation. No respiratory distress. HEART: Regular rate and rhythm. No murmur heard. Normal peripheral pulses. ABDOMEN: Soft, nontender, nondistended EXTREMITIES: Normal range of motion. No edema. SKIN: Warm, dry, no rash. NEURO: No focal deficits. Alert and oriented x3. PSYCH: Nor
[2023-02-19 15:07] LABS: Creatine Kinase 242 U/L (30-135)
[2023-02-19] MEDS: SODIUM CHLORIDE 0.9% IV 1,000 ML 999 ML IV CONT (15:25)
[2023-02-19 16:51] LABS: Influenza A QL RT-PCR Negative (Negative); Influenza B QL RT-PCR Negative (Negative); SARS-CoV-2 RNA PCR Negative (Negative)
[2023-02-19 17:58] LABS: Free T4 Free Thyroxine Reflex 1.39 ng/dL (0.78-2.19)
[2023-02-19 18:36] VITALS: BP 130/66; PULSE 66; RESP 18; O2SAT 97
[2023-02-19 18:40] LABS: Total Triiodothyronine (T3) 2.08 NG/ML (0.97-1.69)
== END 2023-02-19 18:37 | disposition home or self-care (01) ==
PROVIDERS: Emergency Provider Emergency Medicine; PCP Family Medicine
DX: R53.1 Weakness (principal); N18.30 Chronic kidney disease, stage 3 unspecified; Z20.822 Contact with and (suspected) exposure to COVID-19; E03.9 Hypothyroidism, unspecified; G47.33 Obstructive sleep apnea (adult) (pediatric); Z87.442 Personal history of urinary calculi
CPT/HCPCS: 36415; 71046; 80053; 81001; 82550; 83735; 84439; 84443; 84480; 85025; 87086; 87088; 87636; 93005; 96360; 96361; 99283; J7030

== ENCOUNTER 2023-03-07 13:03 | Emergency (ER) | payer OTHER, SELFPAY ==
[2023-03-07 13:10] VITALS: BP 162/70; PULSE 64; RESP 20; TEMP 36.6; O2SAT 98
--- NOTE | 2023-03-07 13:11 | ED.FEMALEGU ---
HPI - Female Genitourinary General Chief complaint: Urogenital-Female Stated complaint: Female Urogenital Time Seen by Provider: 03/07/23 13:11 Source: patient and RN notes reviewed Mode of arrival: ambulatory Limitations: no limitations History of Present Illness HPI Narrative: 57-year-old female history of CKD, renal stones, and recurrent UTIs, on daily nitrofurantoin, presented for complaint of burning with urination and bladder spasms for 1 week. At the onset, she presented her urine to her established urologist, was advised to stop chronic nitrofurantoin and start Augmentin, prior to urine culture. States she completed Augmentin then resumed nitrofurantoin 3 days ago. Endorses minimal relief in symptoms. She received the urine culture report on the patient portal, which showed susceptibility to the Augmentin. Patient states she continues to feel miserable and is unable to discuss symptoms with urologist on the weekend. Denies abdominal pain, flank pain, hematuria, n/v/d/f/c. Taking AZO prn. Related Data Home Medications Medication Instructions Recorded Confirmed levothyroxine 88 mcg capsule 112 mcg PO DAILY 01/27/23 03/07/23 (Tirosint) multivitamin (Multiple Vitamins 1 tablet PO DAILY 02/24/23 03/07/23 tablet) nitrofurantoin macrocrystal 50 mg 50 mg PO DAILY 02/24/23 03/07/23 capsule alprazolam 0.25 mg tablet 0.25 mg PO BID PRN Anxiety 03/07/23 03/07/23 levothyroxine 125 mcg tablet 125 mcg PO HS 03/07/23 03/07/23 Allergies Allergy/AdvReac Type Severity Reaction Status Date / Time rocephin AdvReac Mild Fever Uncoded 03/07/23 13:08 Review of Systems Review of Systems: CONSTITUTIONAL: Denies body aches, fever, chills, or sweats. CARDIOVASCULAR: Denies chest pain, palpitations, or edema. RESPIRATORY: Denies cough or dyspnea. GASTROINTESTINAL: Denies abdominal pain, nausea, vomiting, or diarrhea. GENITOURINARY: Reports dysuria, denies frequency, urgency, hematuria, flank pain SKIN: Denies rash, itching, or wounds. MUSCULOSKELETAL: Denies back pain or myalgia. [facility] Past Medical History Medical History Anxiety BMI 39.0-39.9,adult Chronic kidney disease CKD (chronic kidney disease) stage 3, GFR 30-59 ml/min Edema Hypothyroid Kidney stones Nephrocalcinosis JUANA (obstructive sleep apnea) Patient denies being tested for sleep apnea Renal tubular acidosis Ureterolithiasis With history of prior nephrostomy tubes in 2014 Surgical History Surgical History History of breast augmentation History of tonsillectomy S/P ureteral stent placement Jun 10, 2022 bilateral stent exchange. right stone extraction. stent dislodged prior to discharge and removed on . Family History Family History Father Acute myocardial infarction Tobacco abuse Mother Cerebrovascular accident Sibling Thyroid activity decreased Other Family history of cardiovascular disease Hypertension Social History Social History Social History: She has been since 1982. 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
== END 2023-03-07 13:39 | disposition home or self-care (01) ==
PROVIDERS: Emergency Provider Nurse Practitioner Family; PCP Family Medicine
DX: R30.0 Dysuria (principal); F41.9 Anxiety disorder, unspecified; E03.9 Hypothyroidism, unspecified; N18.30 Chronic kidney disease, stage 3 unspecified; Z96.0 Presence of urogenital implants
CPT/HCPCS: 81003; 87086; 99213; G0463

== ENCOUNTER 2023-04-30 11:10 | Outpatient (CLI) | payer OTHER, SELFPAY ==
--- NOTE | ~2023-04-30 | XR_ITS ---
Supine and upright views of the abdomen Clinical history: Abdominal pain COMPARISON: 01/17/2023 Findings: Bowel gas pattern is nonspecific. No evidence for obstruction or free air. There are yaleen us bilateral renal stones, largest stones at the left lower pole measuring up to 12 mm in diameter. P ossible distal left ureteral stone or urinary bladder stone measuring 3 mm. Osseous structures are in tact. Impression: Possible distal left ureteral stone or urinary bladder stone measuring 3 mm. Numerous bilateral renal stones, probably without significant change from prior exam. Reviewed, dictated and finalized at location M. Impression: Possible distal left ureteral stone or urinary bladder stone measuring 3 mm. Numerous bilateral renal stones, probably without significant change from prior exam.
== END 2023-04-30 11:11 | disposition home or self-care (01) ==
PROVIDERS: PCP Family Medicine; Referring Provider Nurse Practitioner Adult Health; Visit Provider Urology
DX: N20.0 Calculus of kidney (principal)
CPT/HCPCS: 74018

== ENCOUNTER 2023-05-07 12:04 | Outpatient (CLI) | payer OTHER, SELFPAY ==
--- NOTE | ~2023-05-07 | CT_ITS ---
EXAMINATION: CT abdomen pelvis wo con DATE: 05/07/2023 12:21 INDICATION: Left ureteral stone. TECHNIQUE: Computed tomography (CT) of the abdomen and pelvis was performed without intravenous contr ast. Automated exposure control and iterative reconstruction technique were employed. The dose-length product was 969.65 mGy-cm. COMPARISON: CT abdomen and pelvis 08/01/2022 FINDINGS: The visualized portions of the lung bases demonstrate mild scarring in right lower lobe. No pleural effusion. The heart size is normal. No pericardial effusion. There are bilateral breast impl ants. There is diffuse hepatic steatosis. The gallbladder, spleen, pancreas, and adrenal glands are n ormal. There is cortical thinning of the kidneys. There is bilateral medullary nephrocalcinosis. Ther e are 2 calyceal stones in right kidney measuring up to 8 mm. There are approximately 4 calyceal ston es in left kidney measuring up to 17 mm. The ureters are normal. There is an umbilical hernia contain ing fat. There are no dilated loops of bowel. The appendix is not visualized. There are no pathologic ally enlarged lymph nodes. There is no free intraperitoneal fluid. There is mild thoracic and lumbar spondylosis. IMPRESSION: 1. Bilateral nonobstructing kidney stones. 2. Bilateral medullary nephrocalcinosis. Reviewed, dictated and finalized at location A.
--- NOTE | ~2023-05-07 | XR_ITS ---
EXAMINATION: XR abdomen/kub 1V INDICATION: Left ureteral stone TECHNIQUE: Supine views of the abdomen were obtained on 2 radiographs. COMPARISON: 04/30/[address] from today FINDINGS: There is bilateral medullary nephrocalcinosis of the kidneys. The previously described susp ected left distal ureteral stone is no longer identified. There are phleboliths of the pelvis. The terri wel gas pattern is normal. IMPRESSION: 1. Previously described suspected left distal ureteral stone no longer identified. 2. Bilateral nephrocalcinosis. Reviewed, dictated and finalized at location L. IMPRESSION: 1. Previously described suspected left distal ureteral stone no longer identifi ed. 2. Bilateral nephrocalcinosis.
== END 2023-05-07 12:05 | disposition home or self-care (01) ==
PROVIDERS: PCP Family Medicine; Visit Provider Nurse Practitioner Adult Health
DX: N20.1 Calculus of ureter (principal)
CPT/HCPCS: 74018; 74176

== ENCOUNTER 2023-06-27 23:22 | Emergency (ER) | payer OTHER, SELFPAY ==
[2023-06-27 23:25] VITALS: BP 164/80; PULSE 68; RESP 15; TEMP 36.7; O2SAT 100
--- NOTE | 2023-06-27 23:49 | ED.GENADULT ---
HPI - General Adult General Chief complaint: Unspecified Stated complaint: cold sweats, on recent antibiotics for UTI, ames Time Seen by Provider: 06/27/23 23:44 Source: patient Mode of arrival: ambulatory Limitations: no limitations History of Present Illness HPI narrative: Patient is a 57-year-old female who presents to the emergency department today for evaluation of continued urinary symptoms after being on treatment for a UTI with macrobid. she has long standing hx of CKD and UTI recurrent. she was seen recently seen by her tube knitter. patient states she just is not feeling well and has all the symptoms she gets when she has a urinary infection. denies flank pain, blood in her urine, vomiting, dizziness, fever, diarrhea, constipation, or any other symptoms. Related Data Home Medications Medication Instructions Recorded Confirmed levothyroxine 125 mcg tablet 125 mcg PO HS 03/07/23 05/11/23 d-mannose 500 mg capsule 500 mg PO .QD 04/09/23 05/11/23 potassium citrate 99 mg capsule 99 mg PO .QD 04/09/23 05/11/23 sodium bicarbonate 325 mg tablet 325 mg PO DAILY 04/09/23 05/11/23 tamsulosin 0.4 mg capsule (Flomax) 0.4 mg PO DAILY 05/05/23 05/11/23 Allergies Allergy/AdvReac Type Severity Reaction Status Date / Time ceftriaxone [From Rocephin] AdvReac Mild Fever Verified 06/28/23 00:26 Review of Systems Review of Systems: CONSTITUTIONAL: Denies fever, sweats. +body aches and chills present. EYES: Denies visual changes, redness, or discharge. ENT: Denies rhinorrhea, congestion, sore throat, or otalgia. CARDIOVASCULAR: Denies chest pain, palpitations, or edema. RESPIRATORY: Denies cough or dyspnea. GASTROINTESTINAL: Denies abdominal pain, nausea, vomiting, or diarrhea. GENITOURINARY: pain with urination, frequency/urgency. denies hematuria. denies flank pain. SKIN: Denies rash or itching. MUSCULOSKELETAL: Denies back pain, joint pain, or myalgia. NEUROLOGIC: Denies headache, numbness, or weakness. PSYCHIATRIC: +anxious All systems reviewed & are unremarkable except as noted in HPI and below PMFSH Past Medical History Medical History Anxiety BMI 39.0-39.9,adult Chronic kidney disease CKD (chronic kidney disease) stage 3, GFR 30-59 ml/min Edema Hypothyroid Kidney stones Nephrocalcinosis JUANA (obstructive sleep apnea) Patient denies being tested for sleep apnea Renal tubular acidosis Ureterolithiasis With history of prior nephrostomy tubes in 2014 Surgical History Surgical History History of breast augmentation History of tonsillectomy S/P ureteral stent placement Jun 10, 2022 bilateral stent exchange. right stone extraction. stent dislodged prior to discharge and removed on . Family History Family History Father Acute myocardial infarction Tobacco abuse Mother Cerebrovascular accident Sibling Thyroid activity decreased Other Family history of cardiovascular disease Hypertension Social History Social History Social History: She has been since 1982. 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
[2023-06-28] MEDS: ONDANSETRON INJ 4 MG/2 ML VIAL IV PUSH (00:14)
[2023-06-28] MEDS: SODIUM CHLORIDE 0.9% IV 1,000 ML 999 ML IV CONT (00:14)
[2023-06-28 00:18] LABS: Basophils Absolute Auto 0.1 K/mm3 (0.0-0.1); Basophils Percent Auto 0.4 % (0.2-1.2); Eosinophils Absolute Auto 0.5 K/mm3 (0-0.3); Eosinophils Percent Auto 3.5 % (0-4.4); Hematocrit 45.9 % (37.0-47.0); Hemoglobin 14.6 g/dL (12.0-15.0); Immature Granulocyte Absolute 0.06 K/mm3 (0.00-0.031); Immature Granulocyte Percent A 0.5 % (0-0.5); Lymphocytes Absolute Auto 2.84 K/mm3 (0.9-3.2); Lymphocytes Percent Auto 21.7 % (18.3-44.2); Mean Corpuscular HGB Conc 31.8 g/dl (32-36); Mean Corpuscular Hemoglobin 27.5 pg (26-34); Mean Corpuscular Volume 86.6 fl (80-100); Mean Platelet Volume 9.7 fl (7.4-10.4); Monocytes Absolute Auto 1.3 K/mm3 (0.1-0.6); Monocytes Percent Auto 9.7 % (2.6-8.5); Neutrophils Absolute Auto 8.4 K/mm3 (1.3-6.7); Neutrophils Percent Auto 64.2 % (45.5-73.1); Platelet Count Result 327 k/mm3 (150-375); Red Cell Distribution Width 14.2 % (11.5-14.5); White Blood Count 13.1 K/mm3 (4.5-10.0)
[2023-06-28 00:22] LABS: Bacteria Urine None Seen /hpf; Non Pathogenic Casts 0-2; RBC Urine 0-2 /hpf (0-2); Squamous Epithelial Cell Urine None seen /hpf (Few); WBC Urine 21-50 /hpf
[2023-06-28] MEDS: LORazepam (*CRX) 1 MG TABLET PO (00:29)
[2023-06-28 00:30] LABS: Alanine Aminotransferase 36 U/L (6-35); Albumin Level 4.7 g/dL (3.5-5.1); Alkaline Phosphatase 64 U/L (38-126); Anion Gap 8 mmol/L (8-16); Aspartate Amino Transferase 33 U/L (14-36); Bilirubin,Total 0.6 mg/dL (0.2-1.3); Blood Urea Nitrogen 16 mg/dL (7-17); Calcium 9.6 mg/dL (8.4-10.2); Carbon Dioxide 22 mmol/L (22-30); Chloride 108 mmol/L (98-107); Estimated CRCL calculation 47 ml/min; Estimated Glomerular Filt Rate 36; Glucose 141 mg/dL (65-110); Potassium 3.5 mmol/L (3.4-5.0); Sodium 138 mmol/L (137-145)
[2023-06-28 01:24] VITALS: BP 150/83; PULSE 52; O2SAT 100
[2023-06-28 01:28] LABS: Appearance Urine Clear (Clear); Bilirubin Urine Negative (Negative); Blood Urine Negative (Negative); Color Urine Yellow (Yellow); Glucose Urine UA Negative (Negative); Ketones Urine Negative (Negative); Leukocyte Esterase Ur 1+ LEU/UL (Negative); Nitrate Urine Negative (Negative); Protein Urine Trace mg/dL (Negative); Urobilinogen Urine 0.2 mg/dL (<2.0); pH Urine 6.5 (5.0-9.0)
[2023-06-28 01:30] LABS: Add Urine Microscopic? YES
[2023-06-28 02:09] VITALS: BP 146/66; PULSE 56; RESP 18; O2SAT 97
== END 2023-06-28 02:08 | disposition home or self-care (01) ==
PROVIDERS: Emergency Provider Nurse Practitioner; PCP Family Medicine
DX: R30.0 Dysuria (principal); R82.998 Other abnormal findings in urine; R03.0 Elevated blood-pressure reading, without diagnosis of hypertension; F41.9 Anxiety disorder, unspecified
CPT/HCPCS: 36415; 80053; 81001; 85025; 87086; 87088; 96361; 96374; 99284; A9270; J2405; J7030

== ENCOUNTER 2023-11-28 11:06 | Outpatient (CLI) | payer OTHER, SELFPAY ==
--- NOTE | ~2023-11-28 | XR_ITS ---
EXAMINATION: XR abdomen/kub 1V DATE: 11/28/2023 11:25 INDICATION: Kidney stones. TECHNIQUE: A supine view of the abdomen on 2 radiographs was obtained. COMPARISON: Abdomen radiograph 05/07/2023, CT abdomen and pelvis 05/07/2023 FINDINGS: There are no dilated loops of bowel. Bilateral medullary nephrocalcinosis. There are ayleen us stones in each kidney measuring up to 15 mm on the left. There is a phlebolith in left pelvis. IMPRESSION: 1. Bilateral kidney stones and medullary nephrocalcinosis. Reviewed, dictated and finalized at location E. R [employer]
== END 2023-11-28 11:07 | disposition home or self-care (01) ==
PROVIDERS: PCP Family Medicine; Visit Provider Internal Medicine Nephrology
DX: N20.0 Calculus of kidney (principal)
CPT/HCPCS: 74018